=== PATIENT | male | born 1955 | race Caucasian/White ===

== ENCOUNTER 2023-10-10 11:55 | Outpatient (CLI) | payer MEDICARE, OTHER, SELFPAY ==
--- NOTE | 2023-10-10 12:59 | ECG_ITS ---
[facility] [address] Test Date: 2023-10-10 Pat Name: Eddi Gallego Department: Room: Gender: M [employer] Supervisor: : 1955 Requested By: Gabino Villatoro Order Number: [id number] Marianne MD: Maximo Ma M.D. Measurements Intervals [place] Rate: 81 P: 20 [place]: 141 QRS: -9 QRSD: 94 T: 26 QT: 352 QTc: 410 Interpretive Statements SINUS RHYTHM POSSIBLE RIGHT VENTRICULAR CONDUCTION DELAY [RSR (QR) IN V1/V2] No previous ECG available for comparison Electronically Signed On 10-10-2023 13:51:52 CDT by Maximo Ma M.D.
[2023-10-10 13:46] LABS: Basophils Absolute Auto 0.1 K/mm3 (0.0-0.1); Basophils Percent Auto 0.7 % (0.2-1.2); Eosinophils Absolute Auto 0.5 K/mm3 (0-0.3); Eosinophils Percent Auto 5.9 % (0-4.4); Hematocrit 40.1 % (42.0-52.0); Hemoglobin 12.9 g/dL (14.0-18.0); Immature Granulocyte Absolute 0.02 K/mm3 (0.00-0.031); Immature Granulocyte Percent A 0.2 % (0-0.5); Lymphocytes Percent Auto 17.8 % (18.3-44.2); Mean Corpuscular HGB Conc 32.2 g/dl (32-36); Mean Corpuscular Hemoglobin 28.7 pg (26-34); Mean Corpuscular Volume 89.3 fl (80-100); Mean Platelet Volume 9.6 fl (7.4-10.4); Monocytes Absolute Auto 0.7 K/mm3 (0.1-0.6); Monocytes Percent Auto 8.6 % (2.6-8.5); Neutrophils Absolute Auto 5.6 K/mm3 (1.3-6.7); Neutrophils Percent Auto 66.8 % (45.5-73.1); Platelet Count Result 263 k/mm3 (150-375); Red Blood Count 4.49 M/mm3 (4.6-6.20); Red Cell Distribution Width 13.3 % (11.5-14.5); White Blood Count 8.4 K/mm3 (4.5-10.0)
[2023-10-10 13:57] LABS: Albumin Level 4.2 g/dL (3.5-5.1); Estimated Glomerular Filt Rate > 60; Glucose 97 mg/dL (65-110)
[2023-10-11 01:31] LABS: Hemoglobin A1C 4.9 % (<5.7)
[2023-10-11 11:48] LABS: Urine Cotinine NEGATIVE
== END 2023-10-10 11:56 | disposition home or self-care (01) ==
LOC: ANHSURGERY 12:01
PROVIDERS: PCP Internal Medicine; Visit Provider Orthopaedic Surgery
DX: Z01.818 Encounter for other preprocedural examination (principal); M17.12 Unilateral primary osteoarthritis, left knee
CPT/HCPCS: 80307; 82040; 82565; 82947; 83036; 85025; 86850; 86900; 86901; 93005

== ENCOUNTER 2023-10-23 01:16 | Day surgery (SDC) | payer MEDICARE, OTHER, SELFPAY ==
[2023-10-10 12:07] VITALS: BMI 39.1
--- NOTE | 2023-10-10 12:34 | PC.NURSE ---
Report to the Outpatient Waiting Room, entrance under the green pavilion located off [facility], at time ___6:00AM____ on date _10/23/23 . Planned Procedure Time: _7:30 AM . Time changes happen often and if your time is changed the preop area will call you the afternoon before. - You and your visitor will be asked to self-screen and do not enter if you have any COVID symptoms. - A mask is optional within the hospital at this time. Patients may have clear liquids (water, carbonated beverages, clear teas, apple juice) until 3 hours prior to surgery( 4:30 AM) with a maximum of 20 ounces. - No food from midnight until time of surgery - Infants may have breast milk until 4 hours before surgery, infant formula 6 hours prior to surgery. - Children will be allowed to drink immediately following surgery. If applicable, please bring a bottle or sippy cup to assist with drinking. Juice, water, soda, and popsicles are readily available. For infants on formula, please bring formula the day of surgery. Pacifiers are allowed. Take the following medications with a SIP of water the morning of surgery: ____METOPROLOL,PAROXETINE DO NOT STOP ANY OF YOUR OTHER PRESCRIPTION MEDICATIONS PRIOR TO SURGERY ?EXCEPT THE FOLLOWING Medications to discontinue per physician __DO NOT STOP ASPIRIN [address] SALAMANCA_BUT DO NOT TAKE MORNING OF SURGERY. HOLD PLAVIX 5 DAYS PRE OP PER DR YANCEY .LAST DOSE 10/17/23 MAY TAKE TYLENOL IF NEEDED FOR PAIN. HOLD OZEMPIC 10 DAYS PRE OP PER ANESTHESIA. LAST DOSE 10/11/23 Please no make-up, nail czech, hairspray, perfume, deodorant, or body powder the day of surgery. No jewelry (including any body piercings) or valuables the day of surgery, leave them at home. Please take a shower or bath the night before, or the morning of, surgery with an antibacterial soap. Wear comfortable, loose fitting clothing. Children are encouraged to wear pajamas. - Jewelry must be removed prior to entering the operating room. Rings and piercings that are not removed may be cut off. - The hospital will not accept responsibility for valuables. - Please leave all valuables, including medications, at home the day of surgery. If you are going home after surgery, a licensed experienced truck driver must drive you home. - NO public transportation without another adult if you receive anesthesia. - We recommend that an adult stay with you for 24 hours following discharge. - We also recommend that you do not drive, make important decision, drink alcoholic beverages, or take any drugs that were not prescribed by your health care provider for at least 24 hours after your discharge time. Follow any additional instructions given to you from your surgeon. If you or anyone in your household have experienced Covid symptoms in the past week, please notify your surgeon or the nurse liaison at the phone number below for possible testing. VERBAL AND WRITTEN instructions given to _PATIENT and asked if any additional questions and then verbalized understanding. Patient advised to call surgeon office or pre surgery nurse liaison [phone] if any additional questions.
[2023-10-10 12:58] VITALS: BP 149/96; PULSE 80; RESP 18; TEMP 36.6; O2SAT 99
[2023-10-23] VITALS (16 sets, daily range): BP systolic 93–176; BP diastolic 49–99; PULSE 87–98; RESP 14–19; TEMP 36.1–36.9; O2SAT 92–100; BMI 38.5
--- NOTE | ~2023-10-23 | XR_ITS ---
[id number] Ordering provider: Gabino López MD History: . POST OP LEFT TOTAL KNEE . Comparison: None. FINDINGS: BONES: No acute fracture or dislocation. JOINT SPACES: Total knee arthroplasty. SOFT TISSUES: Areas seen laterally most likely postoperative. IMPRESSION: No acute osseous abnormality left knee. Total knee arthroplasty. Reviewed, dictated and finalized at location A.
--- NOTE | 2023-10-23 06:36 | WPDHPUPDATE1 ---
History and Physical Update Update Date/Time: 10/23/23 06:36 History and Physical has been reviewed, including an updated exam of the patient. There are NO changes in the patient's condition. Risks, benefits, and alternatives have been discussed and questions answered. Patient agrees to proceed with procedure.
[2023-10-23] MEDS: ACETAMINOPHEN 500 MG TABLET 1000 MG PO (06:53)
[2023-10-23] MEDS: VANCOMYCIN 1,500 MG/NS 500 ML BAG 250 MG IVPB (06:53)
[2023-10-23] MEDS: TRANEXAMIC ACID 1,000MG/ISO100 1,000 MG/100 ML BAG 200 MG IVPB (06:54)
[2023-10-23] MEDS: LACTATED RINGERS 1,000 ML 30 ML IV CONT ×2 (07:08→09:51)
--- NOTE | 2023-10-23 07:22 | WPDANESEPPF ---
Anes - Initial Pre Proc Eval Procedure: Operation Date: 10/23/23 07:30 Proposed Procedures p Left Total Knee Arthroplasty - Gabino López MD Date/Time: 10/23/23 07:22 Surgeon: Gabino López MD Pre Op Diagnosis: O A Lt Knee Patient Data Age: 67 Gender: M Height: 1.68 m Weight: 108.2 kg Last Vital Signs Temp 97.7 F 10/23/23 07:16 Pulse 89 10/23/23 07:16 Resp 14 10/23/23 07:16 BP 150/92 H 10/23/23 07:16 Pulse Ox 100 10/23/23 07:16 O2 Del Method Room Air 10/23/23 07:16 Allergies Allergy/AdvReac Type Severity Reaction Status Date / Time No Known Allergies Allergy Verified 10/23/23 06:09 Home Medications Medication Instructions Recorded Confirmed Type paroxetine HCl 40 mg tablet (Paxil) 40 mg PO DAILY 03/02/21 10/23/23 History tamsulosin 0.4 mg capsule 0.4 mg PO DAILY 03/02/21 10/10/23 History aspirin 81 mg capsule 81 mg PO DAILY 09/10/23 10/23/23 History clopidogrel 75 mg tablet 75 mg PO DAILY 09/10/23 10/23/23 History ezetimibe 10 mg tablet 10 mg PO DAILY 09/10/23 10/10/23 History lisinopril 40 mg tablet 40 mg PO DAILY 09/10/23 10/10/23 History metoprolol tartrate 50 mg tablet 50 mg PO BID 09/10/23 10/23/23 History acetaminophen 500 mg capsule 1,000 mg PO QID PRN Pain 10/10/23 10/10/23 History atorvastatin 40 mg tablet 40 mg PO HS 10/10/23 10/10/23 History cetirizine 10 mg tablet (Zyrtec) 10 mg PO DAILY 10/10/23 10/10/23 History fluticasone propionate 50 2 spray intranasal DAILY 10/10/23 10/23/23 History mcg/actuation nasal spray,suspension (Flonase Allergy Relief) semaglutide (weight loss) 2.4 2.4 mg subcut WEEKLY WEIGHT LOSS 10/10/23 10/23/23 History mg/0.75 mL subcutaneous pen injector Patient hx anesthesia problems: none Family hx anesthesia problems: none Results Review: All pre-operative results and documents have been reviewed as part of the pre-operative evaluation. [facility] Past Medical History Medical History Allergies Chronic seasonal allergic rhinitis Depression Hypertension Obstructive sleep apnea Osteoarthritis, knee Surgical History Surgical History History of angioplasty Family History Family History Father Diabetes mellitus Hypertension Cerebrovascular accident Mother Depression Heart disease Sibling Malignant neoplasm of prostate Testicular cancer Depression Sibling Depression Social History Social History Smoking packs per day: 2 Smoking cigarettes per day: 40.0 Years smoked: 30 Smoking pack-years: 60.00 Smoking status: Former smoker Tobacco type: cigarettes Smoking end date: 05/06/08 Additional smoking assessment comments: DENIES ANY FORM OF TOBACCO USE Alcohol intake: current Alcohol use details: ONE DRINK PER MONTH Substance use: never Do You Feel Safe in your Home?: Yes Lack of Transportation: No Lack of Food: Never True Current Housing: I Have Housing Concerned About Future Housing: No Difficulty Paying Gas/Electric Bills: No Difficulty Paying for Meds: No Currently Unemployed: No Education: Master's Degree or Higher Difficulty w/ Childcare or Family Care: No Living arrangements: with family Occupation/Education: retired Spiritual care concerns: No Anes - Eval Final PreProcedure Day of Procedure 10/23/23 07:22 Patient weight: obese Heart: regular rate and rhythm Lungs: clear to auscultation Airway: Mallampati scale and special considerations (Missing L lower tooth. ) Neurological: alert and oriented Last oral intake: >/= 8 hours ASA classification: III Emergent: no Anesthetic plan: proceed Anesthesia type and monitoring: general ETT and standard monitoring Results Review: All pre-operative res
[2023-10-23] MEDS: ceFAZolin 2 GM/D5W 50 ML 2 GM/50 ML BAG IVPB ×3 (07:23→23:00)
--- NOTE | 2023-10-23 07:24 | WPDANESPNB ---
Anes - Peripheral Nerve Block Date/Time: 10/23/23 07:24 I have discussed with the patient/family/POA the placement of a peripheral nerve block for post-operative pain management, including associated risks, benefits, complications, and side effects. Alternative methods of post-operative analgesia were detailed. Questions were solicited and answers provided to the satisfaction of the patient/family/POA. Time-Out: A pre-procedural Time-Out was completed immediately before starting the procedure and confirmed: Patient Identification, Site, Procedure, Patient Position and the Availability of Requisite Equipment. Clinical Indications: Acute post-operative pain management requested by the operative surgeon. Nerve Block Insertion Note Anes-nerve block: adductor canal left Patient position: supine Skin prep: chlorhexidine Needle: 22 gauge, stimulating, insulated echogenic needle. Needle length: 80 mm Technique: ultrasound Injectate: other (Bupiv 0.5%, 15 mls. ) Observations: tolerated well Complications: none Procedure start time:: Procedure end time::
[2023-10-23] MEDS: SODIUM CHLORIDE 0.9% IV 37.7 ML, MORPHINE SULFATE INJ (*CRX) 2 MG, ROPivacaine HCL 1% 2... INFILTRATE (08:07)
[2023-10-23] MEDS: TRANEXAMIC ACID 1,000 MG/10 ML AMPUL 1000 MG IV PUSH (09:18)
--- NOTE | 2023-10-23 09:19 | P.OP_ITS ---
Procedure Note - Detailed Date of Procedure 10/23/23 Pre-op Diagnosis Osteoarthritis LEFT Knee Post-op Diagnosis Same Procedure Performed LEFT TOTAL KNEE Surgeon Gabino López MD [employer] [facility] Anesthesia General Indications Pain and Arthritis Description of Procedure The patient was brought to operating room #7. A general anesthetic was administered. Placed on the operating table and sterilely prepped and draped in usual manner. A longitudinal incision was made. Tourniquet inflated to 300 mmHg for a total of 57 minutes. Dissection was carried down to the fascia. Medial parapatellar incision was made and the patella subluxated laterally. Patella cut from 25 to 15 mm and sized for a 34 mm button. The tibia was cut perpendicular to the long axis and femur cut in 5 degrees of valgus. 11mm of distal femur was removed because of the deformity. A 65 femur trialed. 71 tibia was felt to fit the best. The soft tissues balanced, hemostasis obtained. All [address], 71 tibia, 65 femur, 34 mm patella, and 10() mm poly. Motion was 0-125 degrees with good stability in both flexion and extension. The wound was closed with #2 Vicryl, 2-0 Vicryl and doug. Significant time was spent balancing the knee. [employer] Estimated Blood Loss 200 Drains No Packing No Pathology None sent Complications No immediate complications Condition Stable Disposition PACU [facility] Billing Surgery - Charge Forward: Surgery Billing ([id number] TOTAL KNEE)
[2023-10-23] MEDS: fentaNYL CITRATE INJ (*CRX) 100 MCG/2 ML VIAL 25 MCG IV PUSH (10:06)
--- NOTE | 2023-10-23 11:18 | ADMGEN ---
This patient, Eddi Gallego, was admitted to [facility] Surg Room 329-01. Patient/family oriented to hospital policies and general routines including ID bracelet, bed and alarms, visiting hours, pain management, procedures, bathroom and other care routines, personal items, smoking policy, room service/diet, and visiting hours. Information on how to activate the Rapid Response Team has been discussed. Patient/Family are encouraged to report perceived risks to care and to ask questions if they do not understand what they are told or what they should do.
[2023-10-23] MEDS: HYDROcodone/acetaminophen (*CRX) 5-325 MG TABLET 1 TAB PO ×2 (13:09→16:58)
--- NOTE | 2023-10-23 14:04 | PM.IMCN ---
Assessment and Plan Assessment and plan (1) Osteoarthritis of knees, bilateral: Qualifiers: Osteoarthritis type: primary Qualified Code(s): M17.0 - Bilateral primary osteoarthritis of knee Code(s): M17.0 - Bilateral primary osteoarthritis of knee Status: Acute Assessment and Plan: Patient underwent a left total knee arthroplasty on 10/23/23 with Rene JAY. - ambulate with assistance and up to chair - apply gel pads - use IS - neurovasc checks - see order for intervals - SCDs - resume diet - pain management - zofran PRN for nausea - monitor labs in AM - CBC and BMP - bowel regimen: docusate/senna, polyethylene glycol - maintenance fluids: NS 125 mL/hr x8 hrs - prophylactic abx - doxycycline 100 mg Q12H or Ancef - PT/OT eval and treatment (2) Hypertension: Qualifiers: Hypertension type: primary hypertension Qualified Code(s): I10 - Essential (primary) hypertension Code(s): I10 - Essential (primary) hypertension Status: Acute Assessment and Plan: - chronic, currently 129/88 - continue home medications:Lisinopril 40 mg, metoprolol 50 mg - monitor Plan Patient here for surgical management of his left knee osteoarthritis, underwent a total left knee arthroplasty on 10/22 with Rene JAY. Medications for patients HLD, depression, BPH, hypertension were resumed. Semaglutide and allergy medications held. Continue home CPAP. Diet: regular GI Prophylaxis: not currently indicated DVT Prophylaxis: Plavix continued, SCDs and TEDs Lines: peripheral Code Status: full code HPI Date of Consult Consult date: 10/24/23 Requesting Physician: Gabino López MD Primary Care Provider: Roland Ojeda, Consult Narrative Reason for consult: Medical Managment Narrative: 67 y/o M presented here for surgical management of his left knee arthritis with PMH of depression, HTN, osteoarthritis and NEVILLE. The patient presents here for surgical management of his left knee osteoarthritis that has been present for 10 years. Pain in his left knee worsened with activity and was partially relieved with rest. However the pain has begun to impact his ADLs including walking, working around the house, taking the stairs etc. Has tried conservative treatment prior. HAs received 2 cortisone shots, most recent was 5 years ago. Patient was not a candidate for a few years due to his weight, went on semaglutide for weight loss and was able to get to his goal weight. Patient elected to move forward with a total left knee arthroplasty, done today by Rene JAY. Currently reporting mild knee discomfort and a sore throat. Denying post-operatively nausea or vomiting. Preop workup: No leukocytosis, hemoglobin 12.9, creatinine 0.9 and GFR >60, A1C 4.9. Preop VS: 97.8? F, HR 80, RR 18, 149/96, and 99% on RA. Review of Systems Review of Systems: All systems reviewed & are unremarkable except as noted in HPI and below PMFSH Past Medical History Medical History Allergies Chronic seasonal allergic rhinitis Depression Hypertension Obstructive sleep apnea Osteoarthritis, knee Surgical History Surgical History History of angioplasty History of heart artery stent History of total knee arthroplasty (10/23/23) left Family History Family History Father Diabetes mellitus Hypertension Cerebrovascular accident Mother Depression Heart disease Sibling Malignant neoplasm of prostate Testicular cancer Depression Sibling Depression Social History Social History Smoking packs per day: 2 Smoking cigarettes per day: 40.0 Years smoked: 30 Smoking pack-years: 60.00 Smoking status: Former smoker Additional smoking assessment comments
[2023-10-23] MEDS: SENNA/DOCUSATE SODIUM TABLET 2 TAB PO (16:32)
[2023-10-23] MEDS: METOPROLOL TARTRATE 50 MG TAB PO (21:10)
[2023-10-23] MEDS: ATORVASTATIN 40 MG TABLET PO (21:10)
[2023-10-23] MEDS: HYDROcodone/acetaminophen (*CRX) 7.5-325 MG TABLET 1 TAB PO (21:10)
[2023-10-24] VITALS (8 sets, daily range): BP systolic 113–156; BP diastolic 62–88; PULSE 94–100; RESP 9–21; TEMP 36.7–37.5; O2SAT 95–100
[2023-10-24] MEDS: ceFAZolin 2 GM/D5W 50 ML 2 GM/50 ML BAG IVPB (06:10)
[2023-10-24] MEDS: HYDROcodone/acetaminophen (*CRX) 7.5-325 MG TABLET 1 TAB PO (06:19)
--- NOTE | 2023-10-24 06:37 | PM.PNORT ---
Progress Note: A&P Assessment and Plan (1) Osteoarthritis of knees, bilateral: Qualifiers: Osteoarthritis type: primary Qualified Code(s): M17.0 - Bilateral primary osteoarthritis of knee Code(s): M17.0 - Bilateral primary osteoarthritis of knee Status: Acute Assessment and Plan: Post op day 1 S/P Left TKA. Doing well. Will ambulate today. If doing well then home this afternoon. (2) History of knee replacement procedure of left knee: Code(s): Z96.652 - Presence of left artificial knee joint Status: Acute Subjective Subjective Date/Time Seen: 10/24/23 06:37 Post Op day: 1 Principal diagnosis: LEFT TOTAL KNEE for Osteoarthritis Review of Systems Musculoskeletal: Musculoskeletal: Reports arthralgias and Reports joint swelling Exam Narrative: Dressing intact. Wiggles toes Objective Data Vital Signs Vital Signs: Vital Signs - 24 hr 10/23/23 07:16 10/23/23 09:51 10/23/23 10:00 Temperature 97.7 F 97.1 F L Pulse Rate 89 94 96 Respiratory Rate 14 19 17 Blood Pressure 150/92 H 93/49 L 107/75 Pulse Oximetry 100 100 100 Oxygen Delivery Room Air Simple Face Mask Simple Face Mask Oxygen Flow Rate 8 8 10/23/23 10:15 10/23/23 10:20 10/23/23 10:30 Temperature 98.4 F Pulse Rate 95 96 96 Respiratory Rate 14 16 16 Blood Pressure 121/74 120/75 117/64 Pulse Oximetry 100 97 94 Oxygen Delivery Simple Face Mask Room Air Room Air Oxygen Flow Rate 8 10/23/23 10:45 10/23/23 10:55 10/23/23 11:05 Temperature Pulse Rate 94 96 95 Respiratory Rate 14 18 16 Blood Pressure 120/82 125/83 128/86 Pulse Oximetry 92 95 94 Oxygen Delivery Room Air Room Air Room Air Oxygen Flow Rate 10/23/23 11:28 10/23/23 11:43 10/23/23 12:14 Temperature 97.2 F L 96.9 F L 98.3 F Pulse Rate 95 93 98 Respiratory Rate 16 16 16 Blood Pressure 160/91 H 176/99 H 147/90 H Pulse Oximetry 99 95 97 Oxygen Delivery Oxygen Flow Rate 10/23/23 13:14 10/23/23 13:53 10/23/23 18:02 Temperature 97.9 F 97.4 F L Pulse Rate 94 92 Respiratory Rate 16 16 Blood Pressure 117/78 131/80 Pulse Oximetry 98 100 Oxygen Delivery Room Air Oxygen Flow Rate 10/23/23 20:53 10/23/23 20:00 10/23/23 22:50 Temperature 97.7 F Pulse Rate 87 88 Respiratory Rate 16 18 Blood Pressure 129/88 Pulse Oximetry 100 95 Oxygen Delivery Room Air CPAP Oxygen Flow Rate 10/24/23 00:48 10/24/23 02:14 10/24/23 05:47 Temperature 98.0 F Pulse Rate 95 Respiratory Rate 16 9 L 21 H Blood Pressure 120/83 Pulse Oximetry 97 95 97 Oxygen Delivery CPAP CPAP Oxygen Flow Rate 10/24/23 04:53 Temperature 98.5 F Pulse Rate 98 Respiratory Rate 18 Blood Pressure 141/75 H Pulse Oximetry 100 Oxygen Delivery Oxygen Flow Rate Intake/Output Intake/Output: Intake & Output 10/21/23 10/22/23 10/23/23 10/24/23 23:59 23:59 23:59 23:59 Intake Total 780 Output Total 775 425 Balance 5 -425 Meds/Results Medications: Active Medications Generic Name Dose Route Start Last Admin Trade Name Freq PRN Reason Stop Dose Admin Hydrocodone Bitart/Acetaminophen 1 tab 10/23/23 11:08 10/23/23 16:58 Hydrocodone/Acetaminophen (*Crx) 5-325 Mg Tablet PO 1 tab Q4H PRN Administration Pain Rated 4-6 Hydrocodone Bitart/Acetaminophen 1 tab 10/23/23 11:08 10/24/23 06:19 Hydrocodone/Acetaminophen (*Crx) 7.5-325 Mg Tablet PO 1 tab Q4H PRN Administration Pain Rated 7-10 Aspirin 81 mg 10/24/23 09:00 Aspirin 81 Mg Chewable Tablet PO DAILY ELA Atorvastatin Calcium 40 mg 10/23/23 21:00 10/23/23 21:10 Atorvastatin 40 Mg Tablet PO 40 mg HS ELA Administration Benzocaine 1 lozenge 10/23/23 21:51 Benzocaine/Menthol (*Bkc) 18 Ea Lozenge PO PRN PRN Sore Throat Clopidogrel Bisulfate 75 mg 10/24/23 09:00 Clopidogrel Bisulfate 75 Mg Tablet PO DAILY ELA Cyclobenzaprine HCl 10 mg 10/23/23 11:08 Cyclobenza
[2023-10-24 07:13] LABS: Basophils Absolute Auto 0.1 K/mm3 (0.0-0.1); Basophils Percent Auto 0.5 % (0.2-1.2); Eosinophils Percent Auto 0.1 % (0-4.4); Hematocrit 34.7 % (42.0-52.0); Hemoglobin 10.7 g/dL (14.0-18.0); Immature Granulocyte Absolute 0.08 K/mm3 (0.00-0.031); Immature Granulocyte Percent A 0.5 % (0-0.5); Lymphocytes Absolute Auto 1.82 K/mm3 (0.9-3.2); Lymphocytes Percent Auto 10.3 % (18.3-44.2); Mean Corpuscular HGB Conc 30.8 g/dl (32-36); Mean Corpuscular Volume 90.8 fl (80-100); Mean Platelet Volume 10.5 fl (7.4-10.4); Monocytes Absolute Auto 2.3 K/mm3 (0.1-0.6); Neutrophils Absolute Auto 13.4 K/mm3 (1.3-6.7); Neutrophils Percent Auto 75.6 % (45.5-73.1); Platelet Count Result 253 k/mm3 (150-375); Red Blood Count 3.82 M/mm3 (4.6-6.20); Red Cell Distribution Width 13.7 % (11.5-14.5); White Blood Count 17.7 K/mm3 (4.5-10.0)
[2023-10-24 07:31] LABS: Anion Gap 7 mmol/L (4-12); Blood Urea Nitrogen 17 mg/dL (9-20); Calcium 9.1 mg/dL (8.4-10.2); Carbon Dioxide 27 mmol/L (22-30); Chloride 105 mmol/L (98-107); Estimated CRCL calculation 71 ml/min; Estimated Glomerular Filt Rate > 60; Glucose 100 mg/dL (65-110); Potassium 3.7 mmol/L (3.4-5.0); Sodium 139 mmol/L (137-145)
--- NOTE | 2023-10-24 07:35 | PM.DS ---
DS: Admitting Diagnosis Discharge Date 10/24/2023 Admitting Diagnosis Osteoarthritis left knee DS: Discharge Diagnosis Discharge Diagnosis (1) History of knee replacement procedure of left knee: Code(s): Z96.652 - Presence of left artificial knee joint Status: Acute Assessment and Plan: Patient underwent total knee arthroplasty for osteoarthritis left knee. (2) Osteoarthritis of knees, bilateral: Qualifiers: Osteoarthritis type: primary Qualified Code(s): M17.0 - Bilateral primary osteoarthritis of knee Code(s): M17.0 - Bilateral primary osteoarthritis of knee Status: Acute DS: Summary Hospital Course Hospital Course: Patient underwent total knee arthroplasty left. He failed conservative treatment on his left knee. This is complicated by the fact that his large size as well as the significant deformity. He has done well postoperatively will dismissed home today pending therapy approval. Dismissed medication [employer] and doxycycline. Follow-up 2 weeks. Time Spent with Patient Time attestation: Total time spent providing and/or coordinating discharge services: Exam Narrative: Neurologically the patient is intact wiggles his toes and very little in the way of pain. DS: Data Data Completed and Pending Labs on day of discharge: Labs from last 24 hours 10/24/23 05:51 WBC 17.7 H RBC 3.82 L Hgb 10.7 L Hct 34.7 L MCV 90.8 MCH 28.0 MCHC 30.8 L RDW 13.7 Plt Count 253 MPV 10.5 H Immature Gran % (Auto) 0.5 Neut % (Auto) 75.6 H Lymph % (Auto) 10.3 L Page % (Auto) 13.0 H Eos % (Auto) 0.1 Baso % (Auto) 0.5 Lymph # (Auto) 1.82 Page # (Auto) 2.3 H Eos # (Auto) 0.0 Baso # (Auto) 0.1 Abs Immat Gran (auto) 0.08 H Absolute Neuts (auto) 13.4 H Absolute Nucleated RBC 0.000 Nucleated RBC % 0.0 Sodium 139 Potassium 3.7 Chloride 105 Carbon Dioxide 27 Anion Gap 7 BUN 17 Creatinine 1.00 Estim Creat Clear Calc 71 Estimated GFR > 60 Glucose 100 Calcium 9.1 Discharge Plan Discharge Patient Disposition: Home, Self-Care Discharge Instructions: Dr. Gabino López M.D [address] [address] POST-OPERATIVE DISCHARGE INSTRUCTIONS TOTAL KNEE ARTHROPLASTY 1. When resting, do not rest in the chair.When resting, lie on your back, with back flat on the couch or bed, with leg elevated above heart to minimize swelling. You may put a pillow under your head. . Significant swelling could indicate a blood clot and if this occurs call the office (or go to the ER) to have a venous ultrasound. Therefore, do not rest in a chair. 2. At least five times a day spend several minutes stretching your knee into flexion while sitting in the chair and also stretching your knee out straight The abilities to bend your knee fulling and straighten your knee fully are two most important knee functions to focus on during your recovery. 3. It is ok to sit in chair to eat, use the toilet and receive a guest and to do your stretching exercises, but, sitting in a chair will cause your leg to swell. Therefore, avoid additional time sitting in the chair. and don't rest in the chair. 4. Wound Care: Nursing will give you an additional Mepilex dressing at the time of discharge. Patient to remove the dressing and apply a new Mepilex dressing at home 7 days after surgery and leave the dressing on until seen in office. 5. May shower with a Mepilex dressing in place.The water will run off the dressing. 6. Unless you are told otherwise, you may put full weight on your operated leg. Use a walker for balance and practice walking as normally as you can, ideally for a few minutes every hour while you are awake. 7. I would advise against putting ice packs on your knee incision. Ice constricts blood flow which can impar healing of the knee incision. IMPORTANT: Remember not to sit in the chair for more than 30 minutes at a time.
--- NOTE | 2023-10-24 08:16 | PM.IMPN ---
Progress Note: A&P Assessment and Plan (1) Osteoarthritis of knees, bilateral: Qualifiers: Osteoarthritis type: primary Qualified Code(s): M17.0 - Bilateral primary osteoarthritis of knee Code(s): M17.0 - Bilateral primary osteoarthritis of knee Status: Acute Assessment and Plan: Patient underwent a left total knee arthroplasty on 10/23/23 with [facility]. - ambulate with assistance and up to chair - apply gel pads - use IS - neurovasc checks - see order for intervals - SCDs - resume diet - pain management - zofran PRN for nausea - monitor labs in AM - CBC and BMP - bowel regimen: docusate/senna, polyethylene glycol - maintenance fluids: NS 125 mL/hr x8 hrs - prophylactic abx - doxycycline 100 mg Q12H or Ancef - PT/OT eval and treatment - Give one dose of toradol (2) Hypertension: Qualifiers: Hypertension type: primary hypertension Qualified Code(s): I10 - Essential (primary) hypertension Code(s): I10 - Essential (primary) hypertension Status: Acute Assessment and Plan: - chronic, currently 156/88 - continue home medications:Lisinopril 40 mg, metoprolol 50 mg - monitor (3) Sinusitis: Code(s): J32.9 - Chronic sinusitis, unspecified Status: Acute Assessment and Plan: Continue follow up One dose of Claritin D Plan Patient is stable for discharge from hospitalist perspective. Labs and vital signs are stable Time Spent With Patient Time: 41 minutes Time with patient: Greater than 35 minutes Subjective Date/time seen: 10/24/23 1030 Interval history: 10/24/23 67 y/o M presented here for surgical management of his left knee arthritis with PMH of depression, HTN, osteoarthritis and NEVILLE. The patient presents here for surgical management of his left knee osteoarthritis that has been present for 10 years. Pain in his left knee worsened with activity and was partially relieved with rest. However the pain has begun to impact his ADLs including walking, working around the house, taking the stairs etc. Has tried conservative treatment prior. HAs received 2 cortisone shots, most recent was 5 years ago. Patient was not a candidate for a few years due to his weight, went on semaglutide for weight loss and was able to get to his goal weight. Patient elected to move forward with a total left knee arthroplasty, done today by Rene JAY. Currently reporting mild knee discomfort and a sore throat. Denying post-operatively nausea or vomiting. Preop workup: No leukocytosis, hemoglobin 12.9, creatinine 0.9 and GFR >60, A1C 4.9. Preop VS: 97.8? F, HR 80, RR 18, 149/96, and 99% on RA. 10/24/2023 Patient is laying in bed. He denies any chest pain, shortness of breath, nausea, vomiting diarrhea. He is stating that he is still having some substantial pain. He is also complaining of congestion. He did state that he was having some issues with walking. Currently he is stable and can be discharged any time ortho is ready. Review of Systems Review of Systems: All systems reviewed & are unremarkable except as noted in HPI and below Exam Narrative: General: well-nourished, well-appearing 67-year-old male, sitting up in bed, comfortable, NARD Neuro: awake, alert and oriented x4, speech clear, no focal neuro deficits noted HEENMT: normocephalic, atraumatic, EOMI, sclerae anicteric, moist oral mucosa Respiratory: Clear to auscultation bilaterally without crackles, rhonchi or wheezes, nonlabored breathing Cardio: regular rate, regular rhythm with S1-S2 Abdomen: nondistended, normoactive bowel sounds, soft, nontender to palpation Extremities: no edema, erythema, or tenderness to palpation, DP pulses 2+ bilaterally, Left knee with dressing that is clean dry and intact Skin: no rashes or lesions, warm and dry Psych: appropriate mood and affect, judgment and insight intact Objective Data Vital Signs Vital Signs: Vital Signs
[2023-10-24] MEDS: CLOPIDOGREL BISULFATE 75 MG TABLET PO (08:29)
[2023-10-24] MEDS: PARoxetine 20 MG TABLET 40 MG PO (08:29)
[2023-10-24] MEDS: polyethylene glycoL 3350 17 GM POWD.PACK PO (08:29)
[2023-10-24] MEDS: TAMSULOSIN HCL 0.4 MG CAPSULE PO (08:30)
[2023-10-24] MEDS: SENNA/DOCUSATE SODIUM TABLET 2 TAB PO (08:30)
[2023-10-24] MEDS: ASPIRIN 81 MG CHEWABLE TABLET PO (08:30)
[2023-10-24] MEDS: lisinopriL 20 MG TABLET 40 MG PO (08:30)
[2023-10-24] MEDS: METOPROLOL TARTRATE 50 MG TAB PO (08:30)
[2023-10-24] MEDS: EZETIMIBE 10 MG TABLET PO (08:30)
[2023-10-24] MEDS: HYDROcodone/acetaminophen (*CRX) 5-325 MG TABLET 1 TAB PO (10:47)
[2023-10-24] MEDS: LORATADINE/PSEUDOEPHEDRINE (*CRX) 10/240 MG TABLET ER 24 HR 1 TAB PO (10:49)
[2023-10-24] MEDS: KETOROLAC 15 MG/ML VIAL (*BKC) IV PUSH (10:49)
--- NOTE | 2023-10-24 12:41 | WPDANESPN ---
Anes - Prog Note Post-Op Date/Time: 10/24/23 12:41 Cardiovascular status: normal Respiratory status: normal Airway patency: baseline Mental status: baseline Post-Op hydration status: normal Vital Signs: Last Vital Signs Temp 37.5 C 10/24/23 08:00 Pulse 94 10/24/23 08:30 Resp 18 10/24/23 08:00 BP 118/62 10/24/23 08:29 Pulse Ox 98 10/24/23 08:00 O2 Del Method Room Air 10/24/23 08:00 O2 Flow Rate 8 10/23/23 10:15 Pain Score (VAS): 08/13 I/O: Intake & Output 10/23/23 10/24/23 10/24/23 23:59 07:59 15:59 Intake Total 340 Output Total 375 425 Balance -35 -425 Laboratory Tests 10/24/23 05:51 10/24/23 05:51 10/24/23 05:51 WBC 17.7 H RBC 3.82 L Hgb 10.7 L Hct 34.7 L MCV 90.8 MCH 28.0 MCHC 30.8 L RDW 13.7 Plt Count 253 MPV 10.5 H Immature Gran % (Auto) 0.5 Neut % (Auto) 75.6 H Lymph % (Auto) 10.3 L [place] % (Auto) 13.0 H Eos % (Auto) 0.1 Baso % (Auto) 0.5 Lymph # (Auto) 1.82 [place] # (Auto) 2.3 H Eos # (Auto) 0.0 Baso # (Auto) 0.1 Abs Immat Gran (auto) 0.08 H Absolute Neuts (auto) 13.4 H Absolute Nucleated RBC 0.000 Nucleated RBC % 0.0 Sodium 139 Potassium 3.7 Chloride 105 Carbon Dioxide 27 Anion Gap 7 BUN 17 Creatinine 1.00 Estim Creat Clear Calc 71 Estimated GFR > 60 Glucose 100 Calcium 9.1 Post-procedural complaints: none Patient Feedback: Patient satisfied with anesthetic care.
--- NOTE | 2023-11-04 10:58 | PM.IMHP ---
H&P: HPI History of Present Illness Date/Time: 11/04/23 10:58 Chief Complaint: Patient presents knee pain LEFT. He has bjdn-ej-oagn arthritis and has failed conservative treatment like to consider knee replacement surgery. Review of Systems Musculoskeletal: Musculoskeletal: Reports arthralgias and Reports joint swelling PMF Past Medical History Medical History Allergies Chronic seasonal allergic rhinitis Depression Hypertension Obstructive sleep apnea Osteoarthritis, knee Surgical History Surgical History History of angioplasty History of heart artery stent History of total knee arthroplasty (10/23/23) left Family History Family History Father Diabetes mellitus Hypertension Cerebrovascular accident Mother Depression Heart disease Sibling Malignant neoplasm of prostate Testicular cancer Depression Sibling Depression Social History Social History Smoking packs per day: 2 Smoking cigarettes per day: 40.0 Years smoked: 30 Smoking pack-years: 60.00 Smoking status: Former smoker Additional smoking assessment comments: DENIES ANY FORM OF TOBACCO USE Alcohol intake: never Alcohol use details: ONE DRINK PER MONTH Substance use: never Substance use type: does not use Do You Feel Safe in your Home?: Yes Lack of Transportation: No Lack of Food: Never True Current Housing: I Have Housing Concerned About Future Housing: No Difficulty Paying Gas/Electric Bills: No Difficulty Paying for Meds: No Currently Unemployed: No Education: Master's Degree or Higher Difficulty w/ Childcare or Family Care: No Living arrangements: with family Occupation/Education: retired Spiritual care concerns: No Meds Home Medications and Allergies Home Medications Medication Instructions Recorded Confirmed Type paroxetine HCl 40 mg tablet (Paxil) 40 mg PO DAILY 03/02/21 10/23/23 History tamsulosin 0.4 mg capsule 0.4 mg PO DAILY 03/02/21 10/10/23 History aspirin 81 mg capsule 81 mg PO DAILY 09/10/23 10/23/23 History clopidogrel 75 mg tablet 75 mg PO DAILY 09/10/23 10/23/23 History ezetimibe 10 mg tablet 10 mg PO DAILY 09/10/23 10/10/23 History lisinopril 40 mg tablet 40 mg PO DAILY 09/10/23 10/10/23 History metoprolol tartrate 50 mg tablet 50 mg PO BID 09/10/23 10/23/23 History acetaminophen 500 mg capsule 1,000 mg PO QID PRN Pain 10/10/23 10/10/23 History atorvastatin 40 mg tablet 40 mg PO HS 10/10/23 10/10/23 History cetirizine 10 mg tablet (Zyrtec) 10 mg PO DAILY 10/10/23 10/10/23 History fluticasone propionate 50 2 spray intranasal DAILY 10/10/23 10/23/23 History mcg/actuation nasal spray,suspension (Flonase Allergy Relief) semaglutide (weight loss) 2.4 2.4 mg subcut WEEKLY WEIGHT LOSS 10/10/23 10/23/23 History mg/0.75 mL subcutaneous pen injector doxycycline hyclate 100 mg tablet 100 mg PO DAILY #10 tabs 10/24/23 Rx hydrocodone 7.5 mg-acetaminophen 1 tablet PO Q4H PRN pain #40 tabs 10/24/23 Rx 325 mg tablet Allergies Allergy/AdvReac Type Severity Reaction Status Date / Time No Known Allergies Allergy Verified 10/23/23 06:09 Exam Narrative: Patient has motion his knee from 3 to 110?. Varus deformity grinding crepitus and pain. Neurologically he is intact. He walks with an antalgic gait. Eyes: General: appearance normal, both eyes and all related structures Neck: Neck: supple Resp: Effort & Inspection: normal respiratory effort Cardio: Rate: regular rate Rhythm: regular rhythm Radiology Reports: Comments: [facility] [address] [place] [address] [address] [place] [address] Gabino López M.D. Orthopedics XRay Report Ambulatory Signed Patient: Eddi Gallego
== END 2023-10-24 15:20 | disposition home or self-care (01) ==
LOC: ANHSURGERY 05:42 → ANH3MEDSUR 11:09
PROVIDERS: PCP Internal Medicine; Visit Provider Orthopaedic Surgery
PROC: (CPT 27447; principal; 2023-10-23 07:30)
DX: M17.12 Unilateral primary osteoarthritis, left knee (principal); G89.18 Other acute postprocedural pain; I10 Essential (primary) hypertension; J32.9 Chronic sinusitis, unspecified; G47.33 Obstructive sleep apnea (adult) (pediatric); E78.5 Hyperlipidemia, unspecified; N40.0 Benign prostatic hyperplasia without lower urinary tract symptoms; F32.A Depression, unspecified; Z87.891 Personal history of nicotine dependence; E66.9 Obesity, unspecified; Z68.38 Body mass index [BMI] 38.0-38.9, adult; Z79.82 Long term (current) use of aspirin; Z79.02 Long term (current) use of antithrombotics/antiplatelets; Z79.85 Long-term (current) use of injectable non-insulin antidiabetic drugs
CPT/HCPCS: 27447; 64447; 36415; 73560; 80048; 85025; 97110; 97116; 97161; 97165; 97530; 97535; A9270; C1713; C1776; J0171; J0330; J0690; J1100; J1170; J1885; J2250; J2270; J2405; J2704; J2795; J3010; J3370; J7120

== ENCOUNTER 2023-12-30 01:12 | Day surgery (SDC) | payer MEDICARE, OTHER, SELFPAY ==
[2023-12-24 10:45] VITALS: BMI 38.4
--- NOTE | 2023-12-24 11:03 | PC.NURSE ---
Report to the Outpatient Waiting Room, entrance under the green pavilion located off [facility], at 0600 on 12/30/23. Planned Procedure Time: 0730. Time changes happen often and if your time is changed the preop area will call you the afternoon before. - You and your visitor will be asked to self-screen and do not enter if you have any COVID symptoms. - A mask is optional within the hospital at this time. Patients may have clear liquids (water, carbonated beverages, clear teas, apple juice) until 3 hours prior to surgery with a maximum of 20 ounces. - No food from midnight until time of surgery Take the following medications with a SIP of water the morning of surgery: ASA (per conveyor attendant), Metoprolol, Tamsulosin. Paroxetine DO NOT STOP ANY OF YOUR OTHER PRESCRIPTION MEDICATIONS PRIOR TO SURGERY ?EXCEPT THE FOLLOWING Medications to discontinue per physician Clopidogrel 5 days prior per conveyor attendant, Semaglutide-last dose 12/20/23 Date to take last dose Please no make-up, nail tajik, hairspray, perfume, deodorant, or body powder the day of surgery. No jewelry (including any body piercings) or valuables the day of surgery, leave them at home. Please take a shower or bath the night before, or the morning of, surgery with an antibacterial soap. Wear comfortable, loose fitting clothing. - Jewelry must be removed prior to entering the operating room. Rings and piercings that are not removed may be cut off. - The hospital will not accept responsibility for valuables. - Please leave all valuables, including medications, at home the day of surgery. If you are going home after surgery, a licensed courier driver must drive you home. - NO public transportation without another adult if you receive anesthesia. - We recommend that an adult stay with you for 24 hours following discharge. - We also recommend that you do not drive, make important decision, drink alcoholic beverages, or take any drugs that were not prescribed by your health care provider for at least 24 hours after your discharge time. Follow any additional instructions given to you from your surgeon. If you or anyone in your household have experienced Covid symptoms in the past week, please notify your surgeon or the nurse liaison at the phone number below for possible testing. Telephone instructions given to patient and asked if any additional questions and then verbalized understanding. Patient advised to call surgeon office or pre surgery nurse liaison [phone] if any additional questions.
[2023-12-30] VITALS (10 sets, daily range): BP systolic 128–156; BP diastolic 79–94; PULSE 84–92; RESP 12–18; TEMP 36.3; O2SAT 97–100
[2023-12-30] MEDS: ACETAMINOPHEN 500 MG TABLET 1000 MG PO (06:28)
--- NOTE | 2023-12-30 07:05 | WPDANESEPPF ---
Anes - Initial Pre Proc Eval Procedure: Operation Date: 12/30/23 07:30 Proposed Procedures p Fusion Guided Bilateral Frontal Sinusotomy, Bilateral Ethmoidectomy, Bilateral Sphenoidotomy, Bilateral Maxillary Antrostomy, Bilateral Turbinate Reduction, - Mark Luu MD Date/Time: 12/30/23 07:05 Surgeon: Mark Luu MD Pre Op Diagnosis: chronic sinusitis,deviated septum Patient Data Age: 68 Gender: M Height: 1.68 m Weight: 109.6 kg Last Vital Signs Temp 97.3 F L 12/30/23 06:32 Pulse 88 12/30/23 06:32 Resp 16 12/30/23 06:32 BP 128/81 12/30/23 06:32 Pulse Ox 100 12/30/23 06:32 O2 Del Method Room Air 12/30/23 06:32 Allergies Allergy/AdvReac Type Severity Reaction Status Date / Time No Known Allergies Allergy Verified 12/30/23 06:24 Home Medications Medication Instructions Recorded Confirmed Type paroxetine HCl 40 mg tablet (Paxil) 40 mg PO DAILY 03/02/21 12/30/23 History tamsulosin 0.4 mg capsule 0.4 mg PO DAILY 03/02/21 12/30/23 History aspirin 81 mg capsule 81 mg PO DAILY 09/10/23 12/30/23 History clopidogrel 75 mg tablet 75 mg PO DAILY 09/10/23 12/30/23 History ezetimibe 10 mg tablet 10 mg PO DAILY 09/10/23 12/30/23 History lisinopril 40 mg tablet 40 mg PO DAILY 09/10/23 12/30/23 History metoprolol tartrate 50 mg tablet 50 mg PO BID 09/10/23 12/30/23 History acetaminophen 500 mg capsule 1,000 mg PO QID PRN Pain 10/10/23 12/30/23 History atorvastatin 40 mg tablet 40 mg PO HS 10/10/23 12/30/23 History cetirizine 10 mg tablet (Zyrtec) 10 mg PO DAILY 10/10/23 12/30/23 History fluticasone propionate 50 2 spray intranasal DAILY PRN Nasal 10/10/23 12/30/23 History mcg/actuation nasal Congestion spray,suspension (Flonase Allergy Relief) semaglutide (weight loss) 2.4 2.4 mg subcut WEEKLY WEIGHT LOSS 10/10/23 12/24/23 History mg/0.75 mL subcutaneous pen injector amoxicillin 875 mg-potassium 1 tablet PO BID 12/24/23 12/30/23 History clavulanate 125 mg tablet Patient hx anesthesia problems: none Family hx anesthesia problems: none Results Review: All pre-operative results and documents have been reviewed as part of the pre-operative evaluation. FOR[facility]LY [facility] Past Medical History Medical History Allergies Chronic seasonal allergic rhinitis Depression Hypertension Obstructive sleep apnea Osteoarthritis, knee Surgical History Surgical History History of angioplasty History of heart artery stent History of total knee arthroplasty (10/23/23) left Family History Family History (Updated 12/03/23 @ 13:43 by JAVIER Song) Father Diabetes mellitus Hypertension Cerebrovascular accident Mother Depression Heart disease Sibling Malignant neoplasm of prostate Testicular cancer Depression Diabetes mellitus Sibling Depression Social History Social History (Updated 12/03/23 @ 13:44 by JAVIER Song) Smoking packs per day: 2 Smoking cigarettes per day: 40.0 Years smoked: 30 Smoking pack-years: 60.00 Smoking status: Former smoker Second hand tobacco smoke exposure: No Additional smoking assessment comments: DENIES ANY FORM OF TOBACCO USE Alcohol intake: current Alcohol use details: ONE DRINK PER MONTH Substance use: never Substance use type: does not use Last use: 12/23/08 Do You Feel Safe in your Home?: Yes Lack of Transportation: No Lack of Food: Never True Current Housing: I Have Housing Concerned About Future Housing: No Difficulty Paying Gas/Electric Bills: No Difficulty Paying for Meds: No Currently Unemployed: No Education: Master's Degree or Higher Difficulty w/ Childcare or Family Care: No Living arrangements: with family 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
[2023-12-30] MEDS: LACTATED RINGERS 1,000 ML 30 ML IV CONT ×2 (07:10→09:07)
--- NOTE | 2023-12-30 07:13 | PM.IMHP ---
H&P: HPI History of Present Illness Date/Time: 12/30/23 07:13 Chief Complaint: nasal polyps Narrative: chronic sinusitis, nasal polyposis Review of Systems Review of Systems: All systems reviewed & are unremarkable except as noted in HPI and below PMFSH Past Medical History Medical History Allergies Chronic seasonal allergic rhinitis Depression Hypertension Obstructive sleep apnea Osteoarthritis, knee Surgical History Surgical History History of angioplasty History of heart artery stent History of total knee arthroplasty (10/23/23) left Family History Family History Father Diabetes mellitus Hypertension Cerebrovascular accident Mother Depression Heart disease Sibling Malignant neoplasm of prostate Testicular cancer Depression Diabetes mellitus Sibling Depression Social History Social History Smoking packs per day: 2 Smoking cigarettes per day: 40.0 Years smoked: 30 Smoking pack-years: 60.00 Smoking status: Former smoker Second hand tobacco smoke exposure: No Additional smoking assessment comments: DENIES ANY FORM OF TOBACCO USE Alcohol intake: current Alcohol use details: ONE DRINK PER MONTH Substance use: never Substance use type: does not use Last use: 12/23/08 Do You Feel Safe in your Home?: Yes Lack of Transportation: No Lack of Food: Never True Current Housing: I Have Housing Concerned About Future Housing: No Difficulty Paying Gas/Electric Bills: No Difficulty Paying for Meds: No Currently Unemployed: No Education: Master's Degree or Higher Difficulty w/ Childcare or Family Care: No Living arrangements: with family 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e patient): Male Spiritual care concerns: No Meds Home Medications and Allergies Home Medications Medication Instructions Recorded Confirmed Type paroxetine HCl 40 mg tablet (Paxil) 40 mg PO DAILY 03/02/21 12/30/23 History tamsulosin 0.4 mg capsule 0.4 mg PO DAILY 03/02/21 12/30/23 History aspirin 81 mg capsule 81 mg PO DAILY 09/10/23 12/30/23 History clopidogrel 75 mg tablet 75 mg PO DAILY 09/10/23 12/30/23 History ezetimibe 10 mg tablet 10 mg PO DAILY 09/10/23 12/30/23 History lisinopril 40 mg tablet 40 mg PO DAILY 09/10/23 12/30/23 History metoprolol tartrate 50 mg tablet 50 mg PO BID 09/10/23 12/30/23 History acetaminophen 500 mg capsule 1,000 mg PO QID PRN Pain 10/10/23 12/30/23 History atorvastatin 40 mg tablet 40 mg PO HS 10/10/23 12/30/23 History cetirizine 10 mg tablet (Zyrtec) 10 mg PO DAILY 10/10/23 12/30/23 History fluticasone propionate 50 2 spray intranasal DAILY PRN Nasal 10/10/23 12/30/23 History mcg/actuation nasal Congestion spray,suspension (Flonase Allergy Relief) semaglutide (weight loss) 2.4 2.4 mg subcut WEEKLY WEIGHT LOSS 10/10/23 12/24/23 History mg/0.75 mL subcutaneous pen injector amoxicillin 875 mg-potassium 1 tablet PO BID 12/24/23 12/30/23 History clavulanate 125 mg tablet Allergies Allergy/AdvReac Type Severity Reaction Status Date / Time No Known Allergies Allergy Verified 12/30/23 06:24 Vital Signs Vital Signs - 24 hr 12/30/23 06:32 Temperature 36.3 C L Pulse Rate 88 Respiratory Rate 16 Blood Pressure 128/81 Pulse Oximetry 100 Oxygen Delivery Room Air Exam Narrative: nasal polyposis bilaterally, fully occluded Assessment and Plan Assessment and plan (1) Sinusitis: Code(s): J32.9 - Chronic sinusitis, unspecified Status: Acute Plan Eddi has bilateral nasal polyposis and chronic sinusitis, here for endoscopic sinus surgery, removal of left ethmoid osteo
--- NOTE | 2023-12-30 07:15 | WPDHPUPDATE1 ---
History and Physical Update Update Date/Time: 12/30/23 07:15 History and Physical has been reviewed, including an updated exam of the patient. There are NO changes in the patient's condition. Risks, benefits, and alternatives have been discussed and questions answered. Patient agrees to proceed with procedure.
[2023-12-30] MEDS: OXYMETAZOLINE HCL 0.05% NAS 15 ML BTL (*BKC) 1 SPRAY NASAL (07:24)
[2023-12-30] MEDS: ceFAZolin 2 GM/D5W 50 ML 2 GM/50 ML BAG IVPB (07:28)
[2023-12-30] MEDS: LIDO 1%/EPINEPHRINE 1:100,000 50 ML VIAL 10 ML INFILTRATE (07:53)
[2023-12-30] MEDS: MUPIROCIN 2% OINT 22 GM TUBE 1 APPLIC EACH NARE (08:24)
--- NOTE | 2023-12-30 08:38 | W.PM.PROC2 ---
Procedure Note - Detailed Date of Procedure 12/30/23 Pre-op Diagnosis chronic sinusitis,nasal polyposis, left ethmoid osteoma Post-op Diagnosis Same Procedure Performed Image guided bilateral frontal sinusotomy, total ethmoidectomy, sphenoidotomy with tissue removal, maxillary antrostomy with tissue removal, turbinoplasty. Removal of left ethmoid osteoma. Surgeon Mark Luu MD Anesthesia General Indications Nasal polyposis, osteoma Findings Bilateral nasal polyposis originating from sphenoid and septum. Smaller polyp disease in ethmoid sinuses. Left frontal osteoma. Bilateral nasopore placed. Description of Procedure On the date of procedure the patient was met in the preoperative area and risk and benefits of the procedure reviewed with the patient as documented in the H&P and they elected to proceed with surgery. Patient was brought back to the operating room by the anesthesia team and underwent general endotracheal anesthesia. Once an adequate plane of anesthesia was obtained a timeout was performed to assure the patient identification the patient here to be performed were correct. They were.The patient was then prepped and draped in the normal fashion for endoscopic sinus surgery. The diffusion image guidance system was calibrated and used for the entire case. Afrin-soaked pledgets were placed in the nasal cavities bilaterally. The entire case was performed under endoscopic visualization. Nasal endoscopy was performed at the beginning of the case. 1% lidocaine with 1:100,000 epinephrine was then injected into the root of the middle turbinate and lateral nasal wall. Attention was first directed towards the right side. The middle turbinate was medialized and the osteomeatal complex was identified with a rani probe. Using a 90 degree backbiter, the uncinate process was reflected anteriorly and removed using a combination of sharp and powered dissection. The maxillary antrostomy was then created and widened by identifying the natural ostia and opening the sinus with straight leila-cut forceps, backbiter, and microdebrider. Polyp tissue encountered was removed with microdebrider. Continuing with the microdebrider, the anterior ethmoid bulla was opened. Careful dissection was carried out posteriorly, through the basal lamella and posterior ethmoid cells until the sphenoid rostrum was identified. A Cassandra suction bluntly identified the sphenoid os and the opening was widened with microdebrider and mushroom punch to 5mm. Polyp disease was removed from the sphenoid. Using an image guided curved suction as well as J-curette, the posterior most ethmoid cell was identified and the ethmoids were bluntly fractured and dissected from posterior to anterior along the base of the skull. The remaining bone fragments were removed with appropriate curved instruments and microdebrider. Next, The left maxillary antrostomy, ethmoidectomy and sphenoidotomy were carried out in identical fashion with findings of gross polyp disease throughout. There was an osteoma in the left ethmoid sinus that was carefully removed using alena elevator, frontal curettes. Upon completion of these portions of the procedure, attention was returned to the right side the frontal recess was identified, with gross polyp disease obstructing and removed. Image guided seeker confirmed proper identification of the frontal recess. This was repeated on the left side. With all sinuses opened and no remaining polyp disease appreciated, nasopore packing was placed in the ethmoid acvities bilaterally. Hemostasis was ensured. Lastly, the bilateral inferior turbiantes were reduced submucosally using 2mm microdebrider and then outfractured with a sayer elevator. This significantly opened the airway. At this point, the procedure was concluded. Care the patient was transferred back to the anesthesia team and the patient was awoke in the operating room and transferred back to the PACU in [facility]
--- NOTE | 2023-12-30 09:16 | SUR.PHASEI ---
0915: Face tent removed.
[2023-12-30] MEDS: oxyCODONE HCL (*CRX) 5 MG TAB IR PO (10:14)
--- NOTE | 2023-12-30 10:26 | SUR.PHASEII ---
Patient has soaked 2 2x2s and [address] Luu at bedside to assess patient and bleeding. Per Dr Luu bleeding is ok and ok to proceed with d/c.
--- NOTE | 2023-12-30 11:00 | SUR.PHASEII ---
Dr Daniel notified again in passing about patient having large amounts of bleeding from both nares and dressing having to be changed frequently. Per Dr Daniel he is aware and expects more bleeding from this patient due to the nature of the procedure, ok to proceed with d/c.
== END 2023-12-30 11:09 | disposition home or self-care (01) ==
PROVIDERS: PCP Internal Medicine; Visit Provider Otolaryngology
PROC: (CPT 31276; principal; 2023-12-30 07:30)
DX: J33.8 Other polyp of sinus (principal); D16.4 Benign neoplasm of bones of skull and face; J32.9 Chronic sinusitis, unspecified; I10 Essential (primary) hypertension; F32.A Depression, unspecified; G47.33 Obstructive sleep apnea (adult) (pediatric); E66.01 Morbid (severe) obesity due to excess calories; Z68.39 Body mass index [BMI] 39.0-39.9, adult; Z79.82 Long term (current) use of aspirin; Z79.02 Long term (current) use of antithrombotics/antiplatelets; Z79.85 Long-term (current) use of injectable non-insulin antidiabetic drugs; Z98.890 Other specified postprocedural states; Z95.5 Presence of coronary angioplasty implant and graft; Z87.891 Personal history of nicotine dependence; Z80.42 Family history of malignant neoplasm of prostate; Z80.43 Family history of malignant neoplasm of testis; Z82.49 Family history of ischemic heart disease and other diseases of the circulatory system
CPT/HCPCS: 31276; 31259; 31267; 30140; 61782; 88305; 88307; A9270; J0690; J1100; J2405; J2704; J3010; J7030; J7120

== ENCOUNTER 2023-12-30 18:54 | Emergency (ER) | payer MEDICARE, OTHER, SELFPAY ==
[2023-12-30 19:07] VITALS: BP 132/83; PULSE 112; RESP 16; TEMP 36.6; O2SAT 100
--- NOTE | 2023-12-30 19:39 | PC.NURSE ---
pt and to intake desk. we are not waiting, we will call his
== END 2023-12-30 20:39 | disposition left against medical advice (07) ==
LOC: ANHED 19:56
PROVIDERS: PCP Internal Medicine
DX: J95.830 Postprocedural hemorrhage of a respiratory system organ or structure following a respiratory system procedure (principal)
CPT/HCPCS: 99199

== ENCOUNTER 2023-12-30 21:25 | Emergency (ER) | payer MEDICARE, OTHER, SELFPAY ==
[2023-12-30 21:53] VITALS: BP 119/80; PULSE 89; RESP 18; TEMP 36.2; O2SAT 99
[2023-12-31] MEDS: SODIUM CHLORIDE 0.9% IV 1,000 ML 999 ML IV CONT (01:49)
[2023-12-31 01:52] LABS: Basophils Absolute Auto 0.1 K/mm3 (0.0-0.1); Basophils Percent Auto 0.3 % (0.2-1.2); Hematocrit 31.6 % (42.0-52.0); Hemoglobin 9.6 g/dL (14.0-18.0); Immature Granulocyte Percent A 0.5 % (0-0.5); Lymphocytes Absolute Auto 1.67 K/mm3 (0.9-3.2); Lymphocytes Percent Auto 8.4 % (18.3-44.2); Mean Corpuscular HGB Conc 30.4 g/dl (32-36); Mean Corpuscular Hemoglobin 28.3 pg (26-34); Mean Corpuscular Volume 93.2 fl (80-100); Mean Platelet Volume 9.8 fl (7.4-10.4); Monocytes Absolute Auto 1.9 K/mm3 (0.1-0.6); Monocytes Percent Auto 9.6 % (2.6-8.5); Neutrophils Absolute Auto 16.1 K/mm3 (1.3-6.7); Neutrophils Percent Auto 81.2 % (45.5-73.1); Platelet Count Result 287 k/mm3 (150-375); Red Blood Count 3.39 M/mm3 (4.6-6.20); Red Cell Distribution Width 14.8 % (11.5-14.5); White Blood Count 19.8 K/mm3 (4.5-10.0)
[2023-12-31 02:17] LABS: Alanine Aminotransferase 13 U/L (6-50); Albumin Level 3.8 g/dL (3.5-5.1); Alkaline Phosphatase 83 U/L (38-126); Anion Gap 13 mmol/L (4-12); Aspartate Amino Transferase 18 U/L (17-59); Bilirubin,Total 0.4 mg/dL (0.2-1.3); Blood Urea Nitrogen 48 mg/dL (9-20); Calcium 9.2 mg/dL (8.4-10.2); Carbon Dioxide 23 mmol/L (22-30); Chloride 102 mmol/L (98-107); Estimated CRCL calculation 64 ml/min; Estimated Glomerular Filt Rate > 60; Glucose 154 mg/dL (65-110); Potassium 4.4 mmol/L (3.4-5.0); Sodium 138 mmol/L (137-145)
--- NOTE | 2023-12-31 03:29 | ED.EPISTAXIS ---
HPI - Epistaxis General Chief complaint: Epistaxis Stated complaint: nose bleed Time Seen by Provider: 12/31/23 01:37 History of Present Illness HPI Narrative: Patient is a 68-year-old male who presents to the emergency department this evening complaining of a nose bleed. Patient had an outpatient ENT surgery performed by Dr. Luu this morning at 7:00 a.m. where he had nasal polyp removed and some sinus surgery. The patient states that shortly after the surgery he started to have some bleeding soaking through [address] Luu informed him that this is normal bleeding and should improve throughout the day. Patient states that the bleeding never stopped and he was passing large blood clots. Patient states that the blood was also draining at the back of his throat causing him to swallow some blood. Patient finally decided to come to the emergency department earlier today and waited in the waiting room for multiple hours due to long wait times and finally decided to go home. Patient states that while he was at home the bleeding stopped for short period him and then returned again and patient states that it was starting to become difficult for him to breathe so he called 911 and was brought to our facility via EMS. He states that he tried holding pressure multiple times with no improvement Patient was taken to triage which initially. By the time he was brought back to a room bleeding has subsided. Patient denies any additional concerns or symptoms at this time. Related Data Home Medications Medication Instructions Recorded Confirmed paroxetine HCl 40 mg tablet (Paxil) 40 mg PO DAILY 03/02/21 12/30/23 tamsulosin 0.4 mg capsule 0.4 mg PO DAILY 03/02/21 12/30/23 aspirin 81 mg capsule 81 mg PO DAILY 09/10/23 12/30/23 clopidogrel 75 mg tablet 75 mg PO DAILY 09/10/23 12/30/23 ezetimibe 10 mg tablet 10 mg PO DAILY 09/10/23 12/30/23 lisinopril 40 mg tablet 40 mg PO DAILY 09/10/23 12/30/23 metoprolol tartrate 50 mg tablet 50 mg PO BID 09/10/23 12/30/23 acetaminophen 500 mg capsule 1,000 mg PO QID PRN Pain 10/10/23 12/30/23 atorvastatin 40 mg tablet 40 mg PO HS 10/10/23 12/30/23 cetirizine 10 mg tablet (Zyrtec) 10 mg PO DAILY 10/10/23 12/30/23 fluticasone propionate 50 2 spray intranasal DAILY PRN Nasal 10/10/23 12/30/23 mcg/actuation nasal Congestion spray,suspension (Flonase Allergy Relief) semaglutide (weight loss) 2.4 2.4 mg subcut WEEKLY WEIGHT LOSS 10/10/23 12/24/23 mg/0.75 mL subcutaneous pen injector amoxicillin 875 mg-potassium 1 tablet PO BID 12/24/23 12/30/23 clavulanate 125 mg tablet Allergies Allergy/AdvReac Type Severity Reaction Status Date / Time No Known Allergies Allergy Verified 12/30/23 06:24 Review of Systems Review of Systems: All systems are reviewed and are negative unless stated otherwise in the HPI. [facility] Past Medical History Medical History Allergies Chronic seasonal allergic rhinitis Depression Hypertension Obstructive sleep apnea Osteoarthritis, knee Surgical History Surgical History History of angioplasty History of heart artery stent History of total knee arthroplasty (10/23/23) left Family History Family History Father Diabetes mellitus Hypertension Cerebrovascular accident Mother Depression Heart disease Sibling Malignant neoplasm of prostate Testicular cancer Depression Diabetes mellitus Sibling Depression Social History Social History Smoking packs per day: 2 Smoking cigarettes per day: 40.0 Years smoked: 30 Smoking pack-years: 60.00 Smoking status: Former smoker Second hand tobacco smoke exposure: No Additional smoking assessment comments: DENIES ANY FORM OF TOBACCO USE Alcohol intake
[2023-12-31 03:54] VITALS: BP 125/75; PULSE 83; RESP 18; O2SAT 100
== END 2023-12-31 03:55 | disposition home or self-care (01) ==
PROVIDERS: Emergency Provider Emergency Medicine; PCP Internal Medicine
DX: R04.0 Epistaxis (principal); F32.A Depression, unspecified; I10 Essential (primary) hypertension; G47.30 Sleep apnea, unspecified
CPT/HCPCS: 30901; 36415; 80053; 85025; 88305; 88307; 96360; 99283; A9270; J0690; J1100; J2405; J2704; J3010; J7030; J7120

== ENCOUNTER 2024-01-15 07:20 | Outpatient (CLI) | payer MEDICARE, OTHER, SELFPAY ==
[2024-01-15 07:53] LABS: Basophils Absolute Auto 0.1 K/mm3 (0.0-0.1); Basophils Percent Auto 0.6 % (0.2-1.2); Eosinophils Absolute Auto 0.5 K/mm3 (0-0.3); Eosinophils Percent Auto 4.8 % (0-4.4); Hematocrit 27.7 % (42.0-52.0); Hemoglobin 8.3 g/dL (14.0-18.0); Immature Granulocyte Absolute 0.04 K/mm3 (0.00-0.031); Immature Granulocyte Percent A 0.4 % (0-0.5); Lymphocytes Percent Auto 25.7 % (18.3-44.2); Mean Corpuscular Hemoglobin 27.7 pg (26-34); Mean Corpuscular Volume 92.3 fl (80-100); Mean Platelet Volume 8.5 fl (7.4-10.4); Monocytes Absolute Auto 0.9 K/mm3 (0.1-0.6); Monocytes Percent Auto 9.6 % (2.6-8.5); Neutrophils Absolute Auto 5.5 K/mm3 (1.3-6.7); Neutrophils Percent Auto 58.9 % (45.5-73.1); Platelet Count Result 349 k/mm3 (150-375); Red Cell Distribution Width 15.3 % (11.5-14.5); White Blood Count 9.3 K/mm3 (4.5-10.0)
[2024-01-15 08:03] LABS: Alanine Aminotransferase 11 U/L (6-50); Alkaline Phosphatase 112 U/L (38-126); Anion Gap 9 mmol/L (4-12); Aspartate Amino Transferase 19 U/L (17-59); Bilirubin,Total 0.3 mg/dL (0.2-1.3); Blood Urea Nitrogen 21 mg/dL (9-20); Calcium 9.3 mg/dL (8.4-10.2); Carbon Dioxide 27 mmol/L (22-30); Chloride 103 mmol/L (98-107); Cholesterol 100 mg/dL (0-200); Estimated Glomerular Filt Rate > 60; Glucose 95 mg/dL (65-110); HDL Direct 48 mg/dL; Sodium 139 mmol/L (137-145); Triglycerides 66 mg/dL (<150)
[2024-01-15 08:14] LABS: LDL Cholesterol Direct 36 mg/dL
== END 2024-01-15 07:21 | disposition home or self-care (01) ==
PROVIDERS: PCP Internal Medicine; Visit Provider Internal Medicine
DX: E78.5 Hyperlipidemia, unspecified (principal)
CPT/HCPCS: 36415; 80053; 80061; 85025; 99212; G0463

== ENCOUNTER 2024-05-01 08:45 | Outpatient (CLI) | payer MEDICARE, OTHER, SELFPAY ==
[2024-05-01 09:34] LABS: Basophils Absolute Auto 0.1 K/mm3 (0.0-0.1); Basophils Percent Auto 0.9 % (0.2-1.2); Eosinophils Absolute Auto 0.4 K/mm3 (0-0.3); Eosinophils Percent Auto 4.4 % (0-4.4); Hematocrit 35.9 % (42.0-52.0); Hemoglobin 11.1 g/dL (14.0-18.0); Immature Granulocyte Absolute 0.03 K/mm3 (0.00-0.031); Immature Granulocyte Percent A 0.3 % (0-0.5); Lymphocytes Absolute Auto 1.47 K/mm3 (0.9-3.2); Lymphocytes Percent Auto 15.7 % (18.3-44.2); Mean Corpuscular HGB Conc 30.9 g/dl (32-36); Mean Corpuscular Hemoglobin 25.1 pg (26-34); Mean Platelet Volume 9.5 fl (7.4-10.4); Monocytes Absolute Auto 0.8 K/mm3 (0.1-0.6); Monocytes Percent Auto 8.9 % (2.6-8.5); Neutrophils Absolute Auto 6.5 K/mm3 (1.3-6.7); Neutrophils Percent Auto 69.8 % (45.5-73.1); Platelet Count Result 254 k/mm3 (150-375); Red Blood Count 4.43 M/mm3 (4.6-6.20); Red Cell Distribution Width 19.4 % (11.5-14.5); White Blood Count 9.3 K/mm3 (4.5-10.0)
[2024-05-01 09:46] LABS: Alanine Aminotransferase 14 U/L (6-50); Albumin Level 4.1 g/dL (3.5-5.1); Alkaline Phosphatase 116 U/L (38-126); Anion Gap 5 mmol/L (4-12); Aspartate Amino Transferase 20 U/L (17-59); Bilirubin,Total 0.5 mg/dL (0.2-1.3); Blood Urea Nitrogen 21 mg/dL (9-20); Calcium 9.3 mg/dL (8.4-10.2); Carbon Dioxide 24 mmol/L (22-30); Chloride 107 mmol/L (98-107); Cholesterol 104 mg/dL (0-200); Estimated Glomerular Filt Rate > 60; Glucose 103 mg/dL (65-110); HDL Direct 50 mg/dL; Potassium 3.9 mmol/L (3.4-5.0); Sodium 136 mmol/L (137-145); Triglycerides 77 mg/dL (<150)
[2024-05-01 09:57] LABS: LDL Cholesterol Direct 35 mg/dL
[2024-05-01 10:15] LABS: Prostate Specific Antigen 1.4 ng/mL (< OR = 4.0); Thyroid Stimulating Hormone 0.568 uIU/mL (0.465-4.680)
[2024-05-01 10:29] LABS: Free T4 Free Thyroxine 1.23 ng/dL (0.78-2.19)
[2024-05-01 10:43] LABS: Urine Cotinine NEGATIVE
[2024-05-01 10:44] LABS: MRSA (PCR) NOT DETECTED (NOT DETECTE)
[2024-05-01 10:45] LABS: Hemoglobin A1C 5.2 % (<5.7)
== END 2024-05-01 08:46 | disposition home or self-care (01) ==
PROVIDERS: PCP Internal Medicine; Visit Provider Orthopaedic Surgery
DX: M17.11 Unilateral primary osteoarthritis, right knee (principal); Z01.818 Encounter for other preprocedural examination; I10 Essential (primary) hypertension; N42.9 Disorder of prostate, unspecified
CPT/HCPCS: 36415; 80053; 80061; 80307; 83036; 84153; 84439; 84443; 85025; 86850; 86900; 86901; 87641; 99212; G0463

== ENCOUNTER 2024-05-11 00:19 | Day surgery (SDC) | payer MEDICARE, OTHER, SELFPAY ==
[2024-04-22 13:26] VITALS: BMI 39.1
--- NOTE | 2024-04-22 14:06 | PC.NURSE ---
Report to the Outpatient Waiting Room, entrance under the green pavilion located off [address], at time ___8:00AM____ on date ___05/11/23____. Planned Procedure Time: __10:00AM .? Time changes happen often and if your time is changed the preop area will call you the afternoon before. - You and your visitor will be asked to self-screen and do not enter if you have any COVID symptoms. Please call surgeon if you need to reschedule. - A mask is optional within the hospital at this time. Patients may have clear liquids (water, carbonated beverages, clear teas, apple juice) until 3 hours prior to surgery with a maximum of 20 ounces. - No food from midnight until time of surgery and no smoking. This includes no chewing gum, candy or mints. Take only the following medications with a SIP of water on the morning of surgery: ASPIRIN(told by Dr Yancey to take on day of surgery), METOPROLOL, PAROXETINE DO NOT STOP ANY OF YOUR OTHER PRESCRIPTION MEDICATIONS PRIOR TO SURGERY EXCEPT THE FOLLOWING Medications to discontinue per physician HOLD PLAVIX 5 DAYS PRE-OP PER DR YANCEY- LAST DOSE 05/05/24. HOLD SEMAGLUTIDE 10 DAYS PRE-OP PER ANESTHESIA- LAST DOSE 04/30/24 Please no make-up, nail barbadian, hairspray, perfume, deodorant, or body powder the day of surgery.? No jewelry (including any body piercings) or valuables the day of surgery, leave them at home.? Please take a shower or bath the night before, or the morning of, surgery with an antibacterial soap.? Wear comfortable, loose fitting clothing.? Children are encouraged to wear pajamas. - Jewelry must be removed prior to entering the operating room.? Rings and piercings that are not removed may be cut off. - The hospital will not accept responsibility for valuables.? - Please leave all valuables, including medications, at home the day of surgery. If you are going home after surgery, a licensed parts delivery driver must drive you home.? - NO public transportation without another adult if you receive anesthesia. - We recommend that an adult stay with you for 24 hours following discharge. - We also recommend that you do not drive, make important decision, drink alcoholic beverages, or take any drugs that were not prescribed by your health care provider for at least 24 hours after your discharge time. Follow any additional instructions given to you from your surgeon. Telephone instructions given to ____PATIENT and asked if any additional questions and then verbalized understanding. Patient advised to call surgeon office or pre surgery nurse liaison [phone] if any additional questions. Report to the Outpatient Waiting Room, entrance under the green pavilion located off [address], at time on date . Planned Procedure Time: .? Time changes happen often and if your time is changed the preop area will call you the afternoon before. - You and your visitor will be asked to self-screen and do not enter if you have any COVID symptoms. Please call surgeon if you need to reschedule. - A mask is optional within the hospital at this time. Patients may have clear liquids (water, carbonated beverages, clear teas, apple juice) until 3 hours prior to surgery with a maximum of 20 ounces. - No food from midnight until time of surgery and no smoking. This includes no chewing gum, candy or mints. - Infants may have breast milk until 4 hours before surgery, infant formula 6 hours prior to surgery. - Children will be allowed to drink immediately following surgery.? If applicable, please bring a bottle or sippy cup to assist with drinking. Juice, water, soda, and popsicles are readily available.? For infants on formula, please bring formula the day of surgery.? Pacifiers are allowed. Take only the following medications with a SIP of water on the morning of surgery: DO NOT STOP ANY OF YOUR OTHER PRESCRIPTION MEDICATIONS PRIOR TO SURGERY EXCEPT THE FOLLOWING Medications to discontinue per physician Date to take last dose Please no make-up, nail barbadian, hairspray, perfume, deodorant, or body powder the day of surgery.? No jewelry (including any body piercings) or valuables the day of surgery, leave them at home.? Please take a shower or bath the night before, or the morning of, surgery with an antibacterial soap.? Wear comfortable, loose fitting clothing.? Children are encouraged to wear pajamas. - Jewelry must be removed prior to entering the operating room.? Rings and piercings that are not removed may be cut off. - The hospital will not accept responsibility for valuables.? - Please leave all valuables, including medications, at home the day of surgery. If you are going home after surgery, a licensed parts delivery driver must drive you home.? - NO public transportation without another adult if you receive anesthesia. - We recommend that an adult stay with you for 24 hours following discharge. - We also recommend that you do not drive, make important decision, drink alcoholic beverages, or take any drugs that were not prescribed by your health care provider for at least 24 hours after your discharge time. For Pediatric surgeries, we recommend two adults accompany the child home. Follow any additional instructions given to you from your surgeon. Telephone instructions given to and asked if any additional questions and then verbalized understanding. Patient advised to call surgeon office or pre surgery nurse liaison [phone] if any additional questions.
--- NOTE | 2024-05-07 07:26 | P.HP_ITS ---
H&P: HPI History of Present Illness Date/Time: 05/07/24 07:26 Chief Complaint: Patient has arthritis right knee. He has failed conservative treatment like to consider knee replacement surgery. He has had a previous left knee replacement has done well from that. We will proceed with total knee on the right. Review of Systems Musculoskeletal: Musculoskeletal: Reports arthralgias and Reports joint swelling PMFSH Past Medical History Medical History (Updated 05/07/24 @ 07:29 by Gabino López MD) Osteoarthritis of knees, bilateral Depression Chronic seasonal allergic rhinitis Obstructive sleep apnea Osteoarthritis, knee Hypertension Allergies Surgical History Surgical History History of heart artery stent History of total knee arthroplasty (10/23/23) left History of angioplasty Family History Family History Father Diabetes mellitus Hypertension Cerebrovascular accident Mother Depression Heart disease Sibling Malignant neoplasm of prostate Testicular cancer Depression Diabetes mellitus Sibling Depression Social History Social History Smoking packs per day: 1.25 Smoking cigarettes per day: 25.0 Years smoked: 20 Smoking pack-years: 25.00 Smoking status: Former smoker Tobacco type: cigarettes Second hand tobacco smoke exposure: No Smoking end date: 11/04/03 Additional smoking assessment comments: DENIES ANY FORM OF TOBACCO USE Alcohol intake: current Alcohol use details: ONE DRINK PER MONTH Substance use: never Substance use type: does not use Last use: 12/23/08 Do You Feel Safe in your Home?: Yes Lack of Transportation: No Lack of Food: Never True Current Housing: I Have Housing Concerned About Future Housing: No Difficulty Paying Gas/Electric Bills: No Difficulty Paying for Meds: No Currently Unemployed: No Education: Master's Degree or Higher Difficulty w/ Childcare or Family Care: No Living arrangements: with family Additional living arrangements comments: 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e patient): Male Spiritual care concerns: No Meds Home Medications and Allergies Home Medications ?Medication ?Instructions ?Recorded ?Confirmed ?Type paroxetine HCl 40 mg tablet (Paxil) 40 mg PO DAILY 03/02/21 04/22/24 History tamsulosin 0.4 mg capsule 0.4 mg PO DAILY 03/02/21 04/22/24 History aspirin 81 mg capsule 81 mg PO DAILY 09/10/23 04/22/24 History clopidogrel 75 mg tablet 75 mg PO DAILY 09/10/23 04/22/24 History ezetimibe 10 mg tablet 10 mg PO DAILY 09/10/23 04/22/24 History lisinopril 40 mg tablet 40 mg PO DAILY 09/10/23 04/22/24 History metoprolol tartrate 50 mg tablet 50 mg PO BID 09/10/23 04/22/24 History acetaminophen 500 mg capsule 1,000 mg PO QID PRN Pain 10/10/23 04/22/24 History atorvastatin 40 mg tablet 40 mg PO HS 10/10/23 04/22/24 History cetirizine 10 mg tablet (Zyrtec) 10 mg PO DAILY 10/10/23 04/22/24 History semaglutide (weight loss) 2.4 2.4 mg subcut WEEKLY WEIGHT LOSS 10/10/23 04/22/24 History mg/0.75 mL subcutaneous pen injector ibuprofen 200 mg capsule 400 mg PO ONCE PRN pain 04/22/24 04/22/24 History Allergies Allergy/AdvReac Type Severity Reaction Status Date / Time No Known Allergies Allergy Verified 04/22/24 13:18 Exam Narrative: On examination he has motion from about the 3 to 110?. He has significant varu s deformity. He has got grinding crepitus and pain with any manipulation. Neurologically he is intact. He walks with an antalgic gait. Eyes: General: appearance normal, both eyes and all related structures Neck: Neck: supple Resp: Effort & Inspection: normal respiratory effort Cardio: Rate: regular rate Rhythm: regular rhythm Assessment and Plan Assessment and plan (1) Osteoarthritis of right knee: Code(s): M17.11 - Unilateral primary osteoarthritis, right knee Status: Acute Assessment and Plan: Patient has osteoarthritis right knee. He has [id number]. He has varus deformity and walks with antalgic gait. He has pain with any manipulation. I have discussed treatment options with him: Risks, benefits, limitations, and alternatives in detail. Will proceed per his request discussed.
[2024-05-11] VITALS (14 sets, daily range): BP systolic 120–169; BP diastolic 70–97; PULSE 77–99; RESP 14–20; TEMP 36.1–36.9; O2SAT 95–100
--- NOTE | ~2024-05-11 | XR_ITS ---
EXAMINATION: [id number] DATE: 05/11/2024 12:35 INDICATION: Total right knee arthroplasty. Postop. TECHNIQUE: 2 views of right knee were obtained. COMPARISON: Right knee radiographs 09/10/23 FINDINGS: There is a total right knee arthroplasty with patellar resurfacing in near-anatomic alignme nt. No fracture. There is gas in the soft tissues, consistent with recent surgery. Anterior skin stap les are noted. IMPRESSION: 1. Total right knee arthroplasty in near-anatomic alignment. Reviewed, dictated and finalized at location A. IST'S DECORATOR
--- NOTE | 2024-05-11 09:05 | WPDHPUPDATE1 ---
History and Physical Update Update Date/Time: 05/11/24 09:05 History and Physical has been reviewed, including an updated exam of the patient. There are NO changes in the patient's condition. Risks, benefits, and alternatives have been discussed and questions answered. Patient agrees to proceed with procedure.
--- NOTE | 2024-05-11 09:40 | WPDANESEPPF ---
Anes - Initial Pre Proc Eval Procedure: Operation Date: 05/11/24 10:00 Proposed Procedures p Right Total Knee Arthroplasty - Gabino López MD Date/Time: 05/11/24 09:40 Surgeon: Gabino López MD Pre Op Diagnosis: oa right knee Patient Data Age: 68 Gender: M Height: 1.68 m Weight: 107 kg Last Vital Signs Temp 36.9 C 05/11/24 07:40 Pulse 77 05/11/24 07:40 Resp 16 05/11/24 07:40 BP 151/80 H 05/11/24 07:40 Pulse Ox 100 05/11/24 07:40 O2 Del Method Room Air 05/11/24 07:40 Allergies Allergy/AdvReac Type Severity Reaction Status Date / Time No Known Allergies Allergy Verified 05/11/24 09:06 Home Medications ?Medication ?Instructions ?Recorded ?Confirmed ?Type paroxetine HCl 40 mg tablet (Paxil) 40 mg PO DAILY 03/02/21 05/11/24 History tamsulosin 0.4 mg capsule 0.4 mg PO DAILY 03/02/21 05/11/24 History aspirin 81 mg capsule 81 mg PO DAILY 09/10/23 05/11/24 History clopidogrel 75 mg tablet 75 mg PO DAILY 09/10/23 05/11/24 History ezetimibe 10 mg tablet 10 mg PO DAILY 09/10/23 04/22/24 History lisinopril 40 mg tablet 40 mg PO DAILY 09/10/23 05/11/24 History metoprolol tartrate 50 mg tablet 50 mg PO BID 09/10/23 05/11/24 History acetaminophen 500 mg capsule 1,000 mg PO QID PRN Pain 10/10/23 04/22/24 History atorvastatin 40 mg tablet 40 mg PO HS 10/10/23 05/11/24 History cetirizine 10 mg tablet (Zyrtec) 10 mg PO DAILY 10/10/23 05/11/24 History semaglutide (weight loss) 2.4 2.4 mg subcut WEEKLY WEIGHT LOSS 10/10/23 05/11/24 History mg/0.75 mL subcutaneous pen injector ibuprofen 200 mg capsule 400 mg PO ONCE PRN pain 04/22/24 04/22/24 History Patient hx anesthesia problems: none Family hx anesthesia problems: none Results Review: All pre-operative results and documents have been reviewed as part of the pre-operative evaluation. [facility] Past Medical History Medical History Osteoarthritis of knees, bilateral Depression Chronic seasonal allergic rhinitis Obstructive sleep apnea Osteoarthritis, knee Hypertension Allergies Surgical History Surgical History History of heart artery stent History of total knee arthroplasty (10/23/23) left History of angioplasty Family History Family History Father Diabetes mellitus Hypertension Cerebrovascular accident Mother Depression Heart disease Sibling Malignant neoplasm of prostate Testicular cancer Depression Diabetes mellitus Sibling Depression Social History Social History Smoking packs per day: 1.25 Smoking cigarettes per day: 25.0 Years smoked: 20 Smoking pack-years: 25.00 Smoking status: Former smoker Tobacco type: cigarettes Second hand tobacco smoke exposure: No Smoking end date: 11/04/03 Additional smoking assessment comments: DENIES ANY FORM OF TOBACCO USE Alcohol intake: current Alcohol use details: ONE DRINK PER MONTH Substance use: never Substance use type: does not use Last use: 12/23/08 Do You Feel Safe in your Home?: Yes Lack of Transportation: No Lack of Food: Never True Current Housing: I Have Housing Concerned About Future Housing: No Difficulty Paying Gas/Electric Bills: No Difficulty Paying for Meds: No Currently Unemployed: No Education: Master's Degree or Higher Difficulty w/ Childcare or Family Care: No Living arrangements: with family Additional living arrangements comments: 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 Informed Consent: The patient's anesthetic plan and its attendant risks and benefits were discussed with the patient/family/POA. Questions were solicited and answers provided to the satisfaction of the patient/family/POA.
--- NOTE | 2024-05-11 09:55 | WPDANESPNB ---
Anes - Peripheral Nerve Block Date/Time: 05/11/24 09:55 I have discussed with the patient/family/POA the placement of a peripheral nerve block for post-operative pain management, including associated risks, benefits, complications, and side effects. Alternative methods of post-operative analgesia were detailed. Questions were solicited and answers provided to the satisfaction of the patient/family/POA. Time-Out: A pre-procedural Time-Out was completed immediately before starting the procedure and confirmed: Patient Identification, Site, Procedure, Patient Position and the Availability of Requisite Equipment. Clinical Indications: Acute post-operative pain management requested by the operative surgeon. Nerve Block Insertion Note Anes-nerve block: adductor canal right Patient position: supine Skin prep: chlorhexidine Needle: 22 gauge, stimulating, insulated echogenic needle. Needle length: 80 mm Technique: ultrasound Technique comment: mid 2mg fent 50mcg Injectate: bupivacaine 0.5% with epi 5 mcg/ml (30ml no epi) and dexamethasone (mg) (4) Observations: tolerated well Complications: none Procedure start time:: 943 Procedure end time:: 950
[2024-05-11] MEDS: ceFAZolin 2 GM/D5W 50 ML 2 GM/50 ML BAG IVPB ×2 (10:00→18:46)
[2024-05-11] MEDS: TRANEXAMIC ACID 1,000MG/ISO100 1,000 MG/100 ML BAG 200 MG IVPB (10:05)
[2024-05-11] MEDS: SODIUM CHLORIDE 0.9% IV 37.7 ML, MORPHINE SULFATE INJ (*CRX) 2 MG, ROPivacaine HCL 1% 2... INFILTRATE (10:31)
[2024-05-11] MEDS: GENTAMICIN BONE CEMENT REFOBACIN 1 EACH TOPICAL (10:43)
[2024-05-11] MEDS: TRANEXAMIC ACID 1,000 MG/10 ML AMPUL 1000 MG IV PUSH (11:35)
--- NOTE | 2024-05-11 11:46 | P.OP_ITS ---
Procedure Note - Detailed Date of Procedure 05/11/24 Pre-op Diagnosis Osteoarthritis right knee Post-op Diagnosis Same Procedure Performed RIGHT total knee arthroplasty Surgeon Gabino López MD Digital Community Manager Rashaun Godoy Anesthesia General Indications Pain and Arthritis Description of Procedure The patient was brought to operating room #8. A general anesthetic was administered. Placed on the operating table and sterilely prepped and draped in usual manner. A longitudinal incision was made. Tourniquet inflated to 300 mmHg for a total of 65 minutes. Dissection was carried down to the fascia. Medial parapatellar incision was made and the patella subluxated laterally. Patella cut from 27 to 16 mm and sized for a 37 mm button. The tibia was cut perpendicular to the long axis and femur cut in 5 degrees of valgus. An extra 3mm of bone was done to address the flexion contracture. A 67.5 femur trialed. 71 tibia was felt to fit the best. The soft tissues balanced, hemostasis obtained. All [address], 71 tibia, 67.5 femur, 37 mm patella, and 10AS mm poly. Motion was 0-125 degrees with good stability in both flexion and extension. The wound was closed with #2 Vicryl, 2-0 Vicryl and doug. [employer] Estimated Blood Loss 200 Drains No Packing No Pathology None sent Complications No immediate complications Condition Stable Disposition PACU [facility] Billing Surgery - Charge Forward: Surgery Billing ([id number] Total Knee)
[2024-05-11] MEDS: LACTATED RINGERS 1,000 ML 30 ML IV CONT ×2 (12:16)
[2024-05-11] MEDS: fentaNYL CITRATE INJ (*CRX) 100 MCG/2 ML VIAL 25 MCG IV PUSH ×2 (12:48→13:02)
--- NOTE | 2024-05-11 15:01 | PC.NURSE ---
This patient, Eddi Gallego, was admitted to Medical Room 345-. Patient/family oriented to hospital policies and general routines including ID bracelet, bed and alarms, visiting hours, pain management, procedures, bathroom and other care routines, personal items, smoking policy, room service/diet, and visiting hours. Information on how to activate the Rapid Response Team has been discussed. Patient/Family are encouraged to report perceived risks to care and to ask questions if they do not understand what they are told or what they should do.
[2024-05-11] MEDS: CELECOXIB 200 MG CAPSULE PO (16:16)
[2024-05-11] MEDS: HYDROcodone/acetaminophen (*CRX) 7.5-325 MG TABLET 1 TAB PO ×2 (16:16→20:15)
[2024-05-11] MEDS: SENNA/DOCUSATE SODIUM TABLET 2 TAB PO (16:16)
[2024-05-11] MEDS: RIVAROXABAN 10 MG TABLET PO (16:17)
[2024-05-11] MEDS: METOPROLOL TARTRATE 50 MG TAB PO (19:49)
[2024-05-11] MEDS: ATORVASTATIN 40 MG TABLET PO (19:50)
[2024-05-11] MEDS: TAMSULOSIN HCL 0.4 MG CAPSULE PO (19:50)
--- NOTE | 2024-05-11 20:37 | P.CONIM_ITS ---
Assessment and Plan Assessment and plan (1) Osteoarthritis of right knee: Code(s): M17.11 - Unilateral primary osteoarthritis, right knee Status: Acute Assessment and Plan: - s/p RIGHT total knee arthroplasty. - Pain meds PRN. - PT eval and treatment with Ortho restrictions. - Fall precautions. - Further mgt per Ortho. (2) Hypertension: Qualifiers: Hypertension type: primary hypertension Qualified Code(s): I10 - Essential (primary) hypertension Code(s): I10 - Essential (primary) hypertension Status: Acute Assessment and Plan: - BP fairly well controlled. - Resume Lisinopril and Metoprolol in AM. (3) History of heart artery stent: Code(s): Z95.5 - Presence of coronary angioplasty implant and graft Status: Acute Assessment and Plan: - Continue Statin, Ezetimibe and Metoprolol. - Aspirin and Plavix resumption per Ortho. (4) Morbid obesity: Code(s): E66.01 - Morbid (severe) obesity due to excess calories Status: Acute Assessment and Plan: - Encouraged with lifestyle modification. (5) Obstructive sleep apnea: Code(s): G47.33 - Obstructive sleep apnea (adult) (pediatric) Status: Acute Assessment and Plan: - CPAP bedtime. - Supplemental O2 bedtime if unable to tolerate CPAP. (6) BPH (benign prostatic hyperplasia): Code(s): N40.0 - Benign prostatic hyperplasia without lower urinary tract symptoms Status: Acute Assessment and Plan: - Continue Tamsulosin. HPI Date of Consult Consult date: 05/11/24 Requesting Physician: Gabino López MD Primary Care Provider: Roland Ojeda, Consult Narrative Narrative: Eddi Gallego is a 68 year old male with a Hx of osteoarthritis to R. Knee. Patient underwent a successful RIGHT total knee arthroplasty with no complica tions. Patient denies any pain currently and states he's comfortable. Pt ambulated with PT in the room and states he tolerated well. Patient denies any numbness or tingling to the R. Knee. Review of Systems Review of Systems: All systems reviewed & are unremarkable except as noted in HPI and below PMFSH Past Medical History Medical History (Updated 05/11/24 @ 20:50 by Miriam Noel NP) Obstructive sleep apnea Osteoarthritis of knees, bilateral Depression Chronic seasonal allergic rhinitis Osteoarthritis, knee Hypertension Allergies Surgical History Surgical History (Updated 05/11/24 @ 20:45 by Miriam Noel NP) History of heart artery stent History of total knee arthroplasty (10/23/23) left History of angioplasty Family History Family History Father Diabetes mellitus Hypertension Cerebrovascular accident Mother Depression Heart disease Sibling Malignant neoplasm of prostate Testicular cancer Depression Diabetes mellitus Sibling Depression Social History Social History Smoking packs per day: 1.25 Smoking cigarettes per day: 25.0 Years smoked: 20 Smoking pack-years: 25.00 Smoking status: Former smoker Tobacco type: cigarettes Second hand tobacco smoke exposure: No Additional smoking assessment comments: DENIES ANY FORM OF TOBACCO USE Alcohol intake: current Alcohol use details: ONE DRINK PER MONTH Substance use: never Substance use type: does not use Last use: 12/23/08 Do You Feel Safe in your Home?: Yes Lack of Transportation: No Lack of Food: Never True Current Housing: I Have Housing Concerned About Future Housing: No Difficulty Paying Gas/Electric Bills: No Difficulty Paying for Meds: No Currently Unemployed: No Education: Master's Degree or Higher Difficulty w/ Childcare or Family Care: No Living arrangements: with family Additional living arrangements comments: 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e patient): Male Spiritual care concerns: No Meds Home Medications and Allergies Home Medications ?Medication ?Instructions ?Recorded ?Confirmed ?Type paroxetine HCl 40 mg tablet (Paxil) 40 mg PO DAILY 03/02/21 05/11/24 History tamsulosin 0.4 mg capsule 0.4 mg PO DAILY 03/02/21 05/11/24 History aspirin 81 mg capsule 81 mg PO DAILY 09/10/23 05/11/24 History clopidogrel 75 mg tablet 75 mg PO DAILY 09/10/23 05/11/24 History ezetimibe 10 mg tablet 10 mg PO DAILY 09/10/23 04/22/24 History lisinopril 40 mg tablet 40 mg PO DAILY 09/10/23 05/11/24 History metoprolol tartrate 50 mg tablet 50 mg PO BID 09/10/23 05/11/24 History acetaminophen 500 mg capsule 1,000 mg PO QID PRN Pain 10/10/23 04/22/24 History atorvastatin 40 mg tablet 40 mg PO HS 10/10/23 05/11/24 History cetirizine 10 mg tablet (Zyrtec) 10 mg PO DAILY 10/10/23 05/11/24 History semaglutide (weight loss) 2.4 2.4 mg subcut WEEKLY WEIGHT LOSS 10/10/23 05/11/24 History mg/0.75 mL subcutaneous pen injector ibuprofen 200 mg capsule 400 mg PO ONCE PRN pain 04/22/24 04/22/24 History Allergies Allergy/AdvReac Type Severity Reaction Status Date / Time No Known Allergies Allergy Verified 05/11/24 09:06 Vital Signs Vital Signs - 24 hr 05/11/24 07:40 05/11/24 12:16 05/11/24 12:30 Temperature 98.5 F 97.1 F L Pulse Rate 77 81 84 Respiratory Rate 16 18 14 Blood Pressure 151/80 H 142/82 H 135/85 Pulse Oximetry 100 98 100 Oxygen Delivery Room Air Simple Face Mask Simple Face Mask Oxygen Flow Rate 6 6 05/11/24 12:45 05/11/24 13:00 05/11/24 13:15 Temperature Pulse Rate 86 87 85 Respiratory Rate 16 16 18 Blood Pressure 154/88 H 149/82 H 143/77 H Pulse Oximetry 100 100 95 Oxygen Delivery Room Air Room Air Room Air Oxygen Flow Rate 05/11/24 13:30 05/11/24 14:00 05/11/24 14:30 Temperature 97.0 F L Pulse Rate 82 83 81 Respiratory Rate 16 16 16 Blood Pressure 145/92 H 152/92 H 165/97 H Pulse Oximetry 97 98 98 Oxygen Delivery Room Air Room Air Room Air Oxygen Flow Rate 05/11/24 15:03 05/11/24 15:33 05/11/24 16:33 Temperature 97.8 F 97.8 F 98.2 F Pulse Rate 87 92 99 Respiratory Rate 18 20 19 Blood Pressure 169/92 H 161/83 H 143/76 H Pulse Oximetry 100 99 97 Oxygen Delivery Oxygen Flow Rate 05/11/24 19:47 05/11/24 19:49 Temperature 97.1 F L Pulse Rate 96 96 Respiratory Rate 20 Blood Pressure 120/70 Pulse Oximetry 99 Oxygen Delivery Oxygen Flow Rate Exam Narrative: General: Well appearing, no acute distress. HEENT: Atraumatic, PERRL, EOM, anicteric, moist mucosa. NECK: Supple. Lungs: Clear bilaterally. Heart: RRR, no murmurs. Abdomen: Soft, non-tender, non-distended, +ve BS X4 Quadrants. Extremities: No cyanosis, no edema. Skin: Warm and dry with no lesions. Neuro: Well oriented, CN II-XII grossly intact. Psych: Pleasant and co-operative. Quality VTE Prophylaxis VTE prophylaxis: mechanical ordered Hospitalist MIPS Advance Care Plan I have confirmed that the patient's Advanced Care Plan is present, code status is documented, or surrogate decision maker is listed in patient medical record.: Yes Medication Reconciliation I have utilized all available resources to obtain, update and review the patients current medications (includes all prescriptions, OTC, herbals, cannabis, and nutritional supplements).: Yes
[2024-05-12 01:08] VITALS: BP 106/66; PULSE 69; RESP 20; TEMP 36.2; O2SAT 99
[2024-05-12] MEDS: ceFAZolin 2 GM/D5W 50 ML 2 GM/50 ML BAG IVPB ×2 (01:08→09:21)
[2024-05-12] MEDS: HYDROcodone/acetaminophen (*CRX) 7.5-325 MG TABLET 1 TAB PO ×2 (01:22→05:23)
[2024-05-12 05:14] VITALS: BP 100/66; PULSE 83; RESP 18; TEMP 36.1; O2SAT 98
[2024-05-12 05:56] LABS: Basophils Absolute Auto 0.1 K/mm3 (0.0-0.1); Basophils Percent Auto 0.3 % (0.2-1.2); Hematocrit 30.5 % (42.0-52.0); Hemoglobin 9.5 g/dL (14.0-18.0); Immature Granulocyte Absolute 0.11 K/mm3 (0.00-0.031); Immature Granulocyte Percent A 0.6 % (0-0.5); Lymphocytes Absolute Auto 1.71 K/mm3 (0.9-3.2); Lymphocytes Percent Auto 9.5 % (18.3-44.2); Mean Corpuscular HGB Conc 31.1 g/dl (32-36); Mean Corpuscular Hemoglobin 25.4 pg (26-34); Mean Corpuscular Volume 81.6 fl (80-100); Mean Platelet Volume 9.7 fl (7.4-10.4); Monocytes Absolute Auto 2.1 K/mm3 (0.1-0.6); Monocytes Percent Auto 11.5 % (2.6-8.5); Neutrophils Absolute Auto 14.1 K/mm3 (1.3-6.7); Neutrophils Percent Auto 78.1 % (45.5-73.1); Platelet Count Result 258 k/mm3 (150-375); Red Blood Count 3.74 M/mm3 (4.6-6.20); Red Cell Distribution Width 19.4 % (11.5-14.5)
[2024-05-12 06:18] LABS: Anion Gap 5 mmol/L (4-12); Blood Urea Nitrogen 25 mg/dL (9-20); Calcium 8.9 mg/dL (8.4-10.2); Carbon Dioxide 28 mmol/L (22-30); Chloride 106 mmol/L (98-107); Estimated CRCL calculation 77 ml/min; Estimated Glomerular Filt Rate > 60; Glucose 103 mg/dL (65-110); Sodium 139 mmol/L (137-145)
--- NOTE | 2024-05-12 07:41 | PM.PNORT ---
Progress Note: A&P Assessment and Plan (1) Status post bilateral knee replacements: Code(s): Z96.653 - Presence of artificial knee joint, bilateral Status: Acute Assessment and Plan: Patient underwent total knee arthroplasty on the right for osteoarthritis. He has progressed reasonably well I think he can be dismissed home. Despite follow up 10 to 14 days for doug out. If he has any changes or problems he is instructed to call discussed. We discussed motion and he will work good diligently on that. Subjective Subjective Date/Time Seen: 05/12/24 07:41 Post Op day: 1 Principal diagnosis: Status post right total knee arthroplasty for osteoarthritis. Review of Systems Review of Systems: All systems reviewed & are unremarkable except as noted in HPI and below Exam Narrative: NVI Dressing intact Ambulates with a walker Resp: Effort & Inspection: normal respiratory effort Cardio: Rate: regular rate Rhythm: regular rhythm Objective Data Vital Signs Vital Signs: Vital Signs - 24 hr 05/11/24 12:16 05/11/24 12:30 05/11/24 12:45 Temperature 97.1 F L Pulse Rate 81 84 86 Respiratory Rate 18 14 16 Blood Pressure 142/82 H 135/85 154/88 H Pulse Oximetry 98 100 100 Oxygen Delivery Simple Face Mask Simple Face Mask Room Air Oxygen Flow Rate 6 6 05/11/24 13:00 05/11/24 13:15 05/11/24 13:30 Temperature Pulse Rate 87 85 82 Respiratory Rate 16 18 16 Blood Pressure 149/82 H 143/77 H 145/92 H Pulse Oximetry 100 95 97 Oxygen Delivery Room Air Room Air Room Air Oxygen Flow Rate 05/11/24 14:00 05/11/24 14:30 05/11/24 15:03 Temperature 97.0 F L 97.8 F Pulse Rate 83 81 87 Respiratory Rate 16 16 18 Blood Pressure 152/92 H 165/97 H 169/92 H Pulse Oximetry 98 98 100 Oxygen Delivery Room Air Room Air Oxygen Flow Rate 05/11/24 15:33 05/11/24 16:33 05/11/24 19:47 Temperature 97.8 F 98.2 F 97.1 F L Pulse Rate 92 99 96 Respiratory Rate 20 19 20 Blood Pressure 161/83 H 143/76 H 120/70 Pulse Oximetry 99 97 99 Oxygen Delivery Oxygen Flow Rate 05/11/24 19:49 05/11/24 20:00 05/12/24 01:08 Temperature 97.1 F L Pulse Rate 96 69 Respiratory Rate 20 Blood Pressure 106/66 Pulse Oximetry 99 Oxygen Delivery Room Air Oxygen Flow Rate 05/12/24 05:14 Temperature 97.0 F L Pulse Rate 83 Respiratory Rate 18 Blood Pressure 100/66 Pulse Oximetry 98 Oxygen Delivery Oxygen Flow Rate Intake/Output Intake/Output: Intake & Output 05/09/24 05/10/24 05/11/24 05/12/24 23:59 23:59 23:59 23:59 Intake Total 1040 650 Output Total 300 Balance 740 650 Meds/Results Medications: Active Medications Generic Name Dose Route Start Last Admin Trade Name Freq PRN Reason Stop Dose Admin Hydrocodone Bitart/Acetaminophen 1 tab 05/11/24 14:48 Hydrocodone/Acetaminophen (*Crx) 5-325 Mg Tablet PO Q4H PRN Pain Rated 4-6 Hydrocodone Bitart/Acetaminophen 1 tab 05/11/24 14:48 05/12/24 05:23 Hydrocodone/Acetaminophen (*Crx) 7.5-325 Mg Tablet PO 1 tab Q4H PRN Administration Pain Rated 7-10 Atorvastatin Calcium 40 mg 05/11/24 21:00 05/11/24 19:50 Atorvastatin 40 Mg Tablet PO 40 mg HS ELA Administration Celecoxib 200 mg 05/11/24 17:00 05/11/24 16:16 Celecoxib 200 Mg Capsule PO 200 mg BIDWM ELA Administration Cyclobenzaprine HCl 10 mg 05/11/24 14:48 Cyclobenzaprine Hcl 10 Mg Tablet PO Q8H PRN Spasms Diphenhydramine HCl 25 mg 05/11/24 14:48 Diphenhydramine Hcl Inj 50 Mg/Ml Vial IV PUSH Q6H PRN Itching Ezetimibe 10 mg 05/12/24 09:00 Ezetimibe 10 Mg Tablet PO DAILY ELA Hydromorphone HCl 1 mg 05/11/24 14:48 Hydromorphone Hcl Inj (*Crx) 1 Mg/Ml Syr IV PUSH Q2H PRN Breakthrough Pain Rated 7-10 or NPO Hydromorphone HCl 0.5 mg 05/11/24 14:48 Hydromorphone Hcl Inj (*Crx) 1 Mg/Ml Syr IV PUSH Q2H PRN Breakthrough Pain Rated 4-6 or NPO Cefazolin Sodium 2 gm in 50 mls @ 100 mls/hr 05/11/24 18:00 05/12/24 01:38 Ancef 2 Gm/D5w 50 Ml IVPB 05/12/24 10:29 Infused Q8H [facility] Infusion Ibuprofen 800 mg in 200 mls @ 400 mls/hr 05/11/24 14:48 Caldolor 800 Mg/200 Ml IVPB Q6H PRN Breakthrough Pain Rated 1-3 or NPO Lisinopril 40 mg 05/12/24 09:00 Lisinopril 20 Mg Tablet PO DAILY [facility] Loratadine 10 mg 05/12/24 09:00 Loratadine 10 Mg Tablet PO QAM [facility] Metoprolol Tartrate 50 mg 05/11/24 21:00 05/11/24 19:49 Metoprolol Tartrate 50 Mg Tab PO 50 mg Q12HR ELA Administration Naloxone HCl 0.1 mg 05/11/24 14:48 Naloxone Hcl 0.4 Mg/Ml Vial IV PUSH Q2M PRN Opiate Reversal Ondansetron HCl 4 mg 05/11/24 14:48 Ondansetron Inj 4 Mg/2 Ml Vial IV PUSH Q4H PRN Nausea And Vomiting Paroxetine HCl 40 mg 05/12/24 09:00 Paroxetine 20 Mg Tablet PO DAILY [facility] Polyethylene Glycol 17 gm 05/12/24 09:00 Polyethylene Glycol 3350 17 Gm Powd.Pack PO QAM [facility] Rivaroxaban 10 mg 05/11/24 17:00 05/11/24 16:17 Rivaroxaban 10 Mg Tablet PO 05/22/24 17:01 10 mg DAILY@17 ELA Administration Senna/Docusate Sodium 2 tab 05/11/24 17:00 05/11/24 16:16 Senna/Docusate Sodium Tablet PO 2 tab BID ELA Administration Tamsulosin HCl 0.4 mg 05/11/24 21:00 05/11/24 19:50 Tamsulosin Hcl 0.4 Mg Capsule PO 0.4 mg HS [facility] Administration Tramadol HCl 50 mg 05/11/24 14:48 Tramadol Hcl (*Crx) 50 Mg Tablet PO Q4H PRN Pain Rated 1-3 Radiology Results: ITS Impressions Knee X-Ray 05/11/24 12:37 IMPRESSION: 1. Total right knee arthroplasty in near-anatomic alignment. Labs Labs: Laboratory Results - last 24 hr 05/12/24 05:32 WBC 18.0 H RBC 3.74 L Hgb 9.5 L Hct 30.5 L MCV 81.6 MCH 25.4 L MCHC 31.1 L RDW 19.4 H Plt Count 258 MPV 9.7 Immature Gran % (Auto) 0.6 H Neut % (Auto) 78.1 H Lymph % (Auto) 9.5 L [place] % (Auto) 11.5 H Eos % (Auto) 0.0 Baso % (Auto) 0.3 Lymph # (Auto) 1.71 [place] # (Auto) 2.1 H Eos # (Auto) 0.0 Baso # (Auto) 0.1 Abs Immat Gran (auto) 0.11 H Absolute Neuts (auto) 14.1 H Absolute Nucleated RBC 0.000 Nucleated RBC % 0.0 Sodium 139 Potassium 4.0 Chloride 106 Carbon Dioxide 28 Anion Gap 5 BUN 25 H Creatinine 0.90 Estim Creat Clear Calc 77 Estimated GFR > 60 Glucose 103 Calcium 8.9
--- NOTE | 2024-05-12 07:50 | PM.DS ---
DS: Admitting Diagnosis Discharge Date Admitting Diagnosis Osteoarthritis right knee. DS: Discharge Diagnosis Discharge Diagnosis (1) Status post bilateral knee replacements: Code(s): Z96.653 - Presence of artificial knee joint, bilateral Status: Acute Assessment and Plan: Patient underwent right knee replacement for osteoarthritis after failed conservative treatment. He has done well postoperatively and is progressing well. He has had a previous left total knee arthroplasty. DS: Summary Hospital Course Hospital Course: Total knee arthroplasty on the right for osteoarthritis unresponsive to conservative treatment. He has done well postoperatively and I believe he can be dismissed home. He has full weight-bearing on his knee. And working on motion. Status at Discharge Functional status at discharge: uses cane/walker Time Spent with Patient Time attestation: Total time spent providing and/or coordinating discharge services: Exam Narrative: NVI Dressing intact Ambulates with a walker Eyes: General: appearance normal, both eyes and all related structures Neck: Neck: supple Resp: Effort & Inspection: normal respiratory effort Cardio: Rate: regular rate Rhythm: regular rhythm DS: Data Data Completed and Pending Labs on day of discharge: Labs from last 24 hours 05/12/24 05:32 WBC 18.0 H RBC 3.74 L Hgb 9.5 L Hct 30.5 L MCV 81.6 MCH 25.4 L MCHC 31.1 L RDW 19.4 H Plt Count 258 MPV 9.7 Immature Gran % (Auto) 0.6 H Neut % (Auto) 78.1 H Lymph % (Auto) 9.5 L [place] % (Auto) 11.5 H Eos % (Auto) 0.0 Baso % (Auto) 0.3 Lymph # (Auto) 1.71 [place] # (Auto) 2.1 H Eos # (Auto) 0.0 Baso # (Auto) 0.1 Abs Immat Gran (auto) 0.11 H Absolute Neuts (auto) 14.1 H Absolute Nucleated RBC 0.000 Nucleated RBC % 0.0 Sodium 139 Potassium 4.0 Chloride 106 Carbon Dioxide 28 Anion Gap 5 BUN 25 H Creatinine 0.90 Estim Creat Clear Calc 77 Estimated GFR > 60 Glucose 103 Calcium 8.9 Discharge Plan Discharge Patient Disposition: Home, Self-Care Discharge Instructions: Dr. Gabino López M.D [id number] [id number] POST-OPERATIVE DISCHARGE INSTRUCTIONS TOTAL KNEE ARTHROPLASTY 1. When resting, do not rest in the chair.When resting, lie on your back, with back flat on the couch or bed, with leg elevated above heart to minimize swelling. You may put a pillow under your head. . Significant swelling could indicate a blood clot and if this occurs call the office (or go to the ER) to have a venous ultrasound. Therefore, do not rest in a chair. 2. At least five times a day spend several minutes stretching your knee into flexion while sitting in the chair and also stretching your knee out straight The abilities to bend your knee fulling and straighten your knee fully are two most important knee functions to focus on during your recovery. 3. It is ok to sit in chair to eat, use the toilet and receive a guest and to do your stretching exercises, but, sitting in a chair will cause your leg to swell. Therefore, avoid additional time sitting in the chair. and don't rest in the chair. 4. Wound Care: Nursing will give you an additional Mepilex dressing at the time of discharge. Patient to remove the dressing and apply a new Mepilex dressing at home 7 days after surgery and leave the dressing on until seen in office. 5. May shower with a Mepilex dressing in place.The water will run off the dressing. 6. Unless you are told otherwise, you may put full weight on your operated leg. Use a walker for balance and practice walking as normally as you can, ideally for a few minutes every hour while you are awake. 7. I would advise against putting ice packs on your knee incision. Ice constricts blood flow which can impar healing of the knee incision. IMPORTANT: Remember not to sit in the chair for more than 30 minutes at a time. As a rule, during the first 14 days after surgery, only sit in the chair to work on the chair knee bending stretch exercise, for meals or for use of the restroom. Sitting in the chair promotes significant swelling in the knee and leg which will make your knee stiff and more painful and which simulates having a blood clot in the veins of the leg. If this type of significant diffuse swelling occurs, an ultrasound at the hospital will be necessary to rule out a blood clot. Be up walking around with the walker for a few minutes every hour while awake and then rest laying on your back on the couch or in bed with your leg elevated on cushions or pillows. Do not rest in the chair. Patient Language: [place] Stand Alone Forms: General Discharge Instructions Follow-up/Referrals: Gabino López MD [Physician] - Discharge Medications: New doxycycline hyclate 100 mg tablet 100 mg PO DAILY Qty: 10 0RF hydrocodone-acetaminophen 7.5-325 mg tablet 1 tablet PO Q4H PRN (Reason: pain) Qty: 40 0RF Xarelto 10 mg tablet 10 mg PO DAILY Qty: 10 0RF Rx Instructions: for 35 days Continued clopidogrel 75 mg tablet 75 mg PO DAILY metoprolol tartrate 50 mg tablet 50 mg PO BID lisinopril 40 mg tablet 40 mg PO DAILY ezetimibe 10 mg tablet 10 mg PO DAILY aspirin 81 mg capsule 81 mg PO DAILY paroxetine HCl [Paxil] 40 mg tablet 40 mg PO DAILY tamsulosin 0.4 mg capsule 0.4 mg PO DAILY Patient Comments: AT HS atorvastatin 40 mg tablet 40 mg PO HS cetirizine [Zyrtec] 10 mg Tablet 10 mg PO DAILY semaglutide (weight loss) 2.4 mg/0.75 mL Pen Injector 2.4 mg SUBCUT WEEKLY Patient Comments: TAKES ON FRIDAYS acetaminophen 500 mg Capsule 1,000 mg PO QID PRN (Reason: Pain) ibuprofen 200 mg capsule 400 mg PO ONCE PRN (Reason: pain)
[2024-05-12 08:33] VITALS: BP 105/68; PULSE 88; RESP 20; TEMP 36.6; O2SAT 98
[2024-05-12] MEDS: polyethylene glycoL 3350 17 GM POWD.PACK PO (09:20)
[2024-05-12 09:21] VITALS: PULSE 80
[2024-05-12] MEDS: lisinopriL 20 MG TABLET 40 MG PO (09:21)
[2024-05-12] MEDS: METOPROLOL TARTRATE 50 MG TAB PO (09:21)
[2024-05-12] MEDS: PARoxetine 20 MG TABLET 40 MG PO (09:21)
[2024-05-12] MEDS: SENNA/DOCUSATE SODIUM TABLET 2 TAB PO (09:22)
[2024-05-12] MEDS: LORATADINE 10 MG TABLET PO (09:22)
[2024-05-12] MEDS: CELECOXIB 200 MG CAPSULE PO (09:22)
[2024-05-12] MEDS: EZETIMIBE 10 MG TABLET PO (09:22)
--- OUTSIDE RECORDS SUMMARY | 2024-05-17 13:01 | XMS_ITS | Data Portability ---
Author Organization [facility] [employer], Main Office Address [address] [place] [address] Assessment No assessment recorded. Plan of Treatment Reminders Order Date Submit Date Provider Last Modified By Organization Details Last Modified Time Details Appointments None recorded . Lab CMP, serum or plasma 023 04/24/20 23 [facility], [address] , [place], [address], 3 17:17:21 lipid panel, serum 023 04/24/20 23 [facility], [address], [place], [address], 3 17:17:26 CBC w/ auto diff 023 04/24/20 23 [facility], [address], [place], [address], 3 15:22:24 T4, free, serum 023 04/24/20 23 [facility], [address] , [place], [address], 3 17:28:48 TSH, serum or plasma 023 04/24/20 23 [facility], [address], [place], [address], 3 17:45:40 CMP, serum or plasma 024 10/07/19 24 [facility], [address] , [place], [address], 4 17:50:36 lipid panel, serum 024 10/07/19 24 [email or web address] [facility], [address], [place], [address], 4 17:50:36 CBC w/ auto diff 024 10/07/19 24 [facility], [address], [place], [address], 4 16:12:48 CMP, serum or plasma 024 12/25/19 24 [facility], [address], [place], [address], 4 09:40:01 lipid panel, serum 024 12/25/19 [email or web address] [facility], [address], [place], [address], 4 17:00:01 CBC w/ auto diff 024 12/25/19 24 M[facility], [address], [place], [address], 4 03:07:23 PSA, serum or plasma 024 04/15/20 24 [facility], [address], [place], [address], 4 04:07:43 CBC w/ auto diff 024 04/15/20 24 [facility], [address], [place], [address], 4 08:50:58 CMP, serum or plasma 024 04/15/20 24 [facility], [address], [place], [address], 4 04:07:41 lipid panel, serum 024 04/15/20 24 MOOK [facility], [address], [place], [address], 4 04:07:42 TSH, serum or plasma 024 04/15/20 [facility], [address] , [place], [address], 4 04:07:42 T4, free, serum 024 04/15/20 [facility], [address], [place], [address], 4 04:07:42 Referral None recorded . Procedures None recorded . Surgeries None recorded . Imaging None recorded . Medication Orders None recorded . Patient TargetsNo targets recorded. Patient Instructions Encounter Date Encounter Id Patient Instructions Last Modified By Organization Details Last Modified Time 04/24/2023 [id number] Coronary artery disease, hypertension, hyperlipidemia, BPH and class three obesity. All clinically stable. Will check blood work consisting of CMP, lipid CBC and thyroid. Continue on current medications. Follow-up in four months. FDA recommendations of a influenza, RSV, COVID, pneumococcal immunizations strongly advised. Portions of the record may have been created with voice recognition software. Occasional wrong-word or ? [id number]? substitutions may have occurred due to the inherent limitations of voice recognition software. Read the chart carefully and recognize, using context, where substitutions have occurred. [email or web address] Not available 04/24/2023 14:38:55 08/28/2023 [id number] Coronary artery disease, hypertension, hyperlipidemia and obesity class three all clinically stable. Overall is doing well most recent blood work looked excellent. Is scheduled to see ENT for problems with chronic rhinorrhea which sounds more like seasonal allergies. Overall otherwise is doing well. Will continue on current medications follow-up in four months. Next Appointment: 4 Months Approximate Date: 12/26/2023 Portions of the record may have been created with voice recognition software. Occasional wrong-word or ? [id number]-[id number]-[id number]? substitutions may have occurred due to the inherent limitations of voice recognition software. Read the chart carefully and recognize, using context, where substitutions have occurred. [email or web address] Not available 08/28/2023 14:49:37 10/07/2023 [id number] Follow-up mercado ry artery disease, hypertension, hyperlipidemia, degenerative joint disease and obesity class two. Will check a CBC lipid and CMP. Will increase the lisinopril from 20 mg to 30 mg daily. Instructed drop by in the next 48 hours to recheck the blood pressure. Is otherwise clinically stable P. See no contraindication to the surgical intervention. Will have to stop his aspirin and Plavix before surgery. Preferably 5-7 days before surgery. Keep Appointment: Sat 01:30 PM [place] Portions of the record may have been created with voice recognition software. Occasional wrong-word or ? [id number]-[id number]? substitutions may have occurred due to the inherent limitations of voice recognition software. Read the chart carefully and recognize, using context, where substitutions have occurred. [email or web address] Not available 10/07/2023 14:32:42 12/25/2023 [id number] dementia rating scale-2* [email or web address] Not available 12/25/2023 14:53:55 alcohol misuse* Not available 12/25/2023 14:53:55 depression screening* [email or web address] Not available 12/25/2023 14:53:55 Timed Up and Go test (TUG)* Not available 12/25/2023 14:53:54 multi-dimensiona l health assessment questionnaire* Not available 12/25/2023 14:53:55 advance care planning: care instructions [email or web address] Not available 12/25/2023 14:53:55 advance directiv es: care instructions [email or web address] Not available 12/25/2023 14:53:55 [place] Advance Directives [email or web address] Not available 12/25/2023 14:53:55 Personalized [facility] Plan and Screening Recommendations Advance Directives - Do you have one? Advance Directives - Do we have your advance directive on file in your health record? Primary Prevention/Intervent ion (prevents or decreases the chance of common diseases from occurring) Smoking Risk: Non Smoker Alcohol Misuse Screening: Negative Weight: Appropriate [place] ht continue your current weight loss efforts try to lose 5% of your body weight try to lose 10% of your body weight Physical activity: Nutrition: Good Average Fall Risk (screened today): Low Vaccines Pneumococcal: Ordered Recommended today Recommended today, but you have declined No further needed Influenza: Chronic Disease Risks Stroke: Low Risk Intermediate Risk I have no recommendations Acti ve diagnosis, Continue current treatment plan Heart Attack: Low risk Intermediate Risk I have no recommendations Acti ve diagnosis, Continue current treatment plan Clogging of the Arteries: Low risk Intermediate Risk I have no recommendations Acti ve diagnosis, Continue current treatment plan Diabetes: Low Risk Intermediate Risk I have no recommendations Refe r to attached handout ? P re-diabetes: After Your Visit? Drastical ly limit sugar and products made with any type of flour (bread, pasta, cereal, cookies, crackers, etc.) Secondary Prevention/Intervent ion (detects treatable diseases before they may cause symptoms, disability, or ) Prostate Cancer Screening: Colon Cancer Screening: Colonoscopy Date Screening Last Performed: _2021___ Eye Disease Screening: Dementia Risk: Low I have no recommendations Depression Screening: Negative [email or web address] Not available 12/25/2023 14:49:00 Medicare wellnes s evaluation risk assessment stable. Follow-up for coronary artery disease, essential hypertension, hyperlipidemia, obesity class two and history of nasal polyps. Is tentatively scheduled for surgical intervention on his nasal polyps next week. See no contraindication. Has been seen by Cardiology recently been released for one year. No interval complaints of any exacerbation of any cardiovascular or pulmonary symptomatology. Will check a CBC, CMP and lipid panel. Continue on current Rx follow-up in four months Next Appointment: 4 Months Approximate Date: 04/23/2024 Portions of the record may have been created with voice recognition software. Occasional wrong-word or ? [id number]? substitutions may have occurred due to the inherent limitations of voice recognition software. Read the chart carefully and recognize, using context, where substitutions have occurred. [email or web address] Not available 12/25/2023 14:53:32 04/15/2024 [id number] Follow-up for coronary artery disease, hypertension, hyperlipidemia and obesity class two. Clinically stable. He has continued to lose weight but at a slower pace. This is more likely related to his intermittent surgical procedures which require him to come off the medication then restart at lower dosages in escalate up. Overall otherwise doing fine at this time. Will check blood work consisting of CBC, CMP, lipid, thyroid And PSA. Follow-up in four months. Follow Up: 4 Months Approximate Date: 08/13/2024 Portions of the record may have been created with voice recognition software. Occasional wrong-word or ? [id number]? substitutions may have occurred due to the inherent limitations of voice recognition software. Read the chart carefully and recognize, using context, where substitutions have occurred. Created: Roland Ojeda M.D. 04.15.2024 02:05 PM Not available 04/15/2024 15:05:39 Reason for Referral None Reported. Results Created Date Observation Date Name Description Value Unit Range Abnormal Flag Note LastModifiedBy Organization Detail LastModifiedTime 05/03/2005/03/2023 CBC/C OMPLE TE BLD COUNT W/DIF F white blood cells 8.4 x10'3 /uL 4.2-10 .8 Not Available [facility] (Lab) [address] [place], [address], 05/03/2023 15:22:23 05/03/20 23 05/03/2023 CBC/C OMPLE TE BLD COUNT W/DIF F red blood cells 4.56 x10'6 /uL 4.10-5 .80 Not Available [facility] (Lab) [address] [place], [address], 05/03/2023 15:22:23 05/03/20 23 05/03/2023 CBC/C OMPLE TE BLD COUNT W/DIF F hemoglobin 13.4 g/dL 13.2-1 7.0 Not Available [facility] (Lab) [address] [place], [address], 05/03/2023 15:22:23 05/03/20 23 05/03/2023 CBC/C OMPLE TE BLD COUNT W/DIF F hematocrit 41.9 % 39.3-5 0.0 Not Available [facility] (Lab) [address] [place], [address], 05/03/2023 15:22:23 05/03/20 23 05/03/2023 CBC/C OMPLE TE BLD COUNT W/DIF F mean red cell volume 91.9 fL 80.0-9 7.0 Not Available [facility] (Lab) [address] [place], [address], 05/03/2023 15:22:23 05/03/20 23 05/03/2023 CBC/C OMPLE TE BLD COUNT W/DIF F mean red cell hemoglobin 29.4 pg 27.0-3 3.0 Not Available [facility] (Lab) [address] [place], [address], 05/03/2023 15:22:23 05/03/20 23 05/03/2023 CBC/C OMPLE TE BLD COUNT W/DIF F mean RBC HGB concentratio n 32.0 g/dL 31.0-3 6.0 Not Available [facility] (Lab) [address] [place], [address], 05/03/2023 15:22:23 05/03/20 23 05/03/2023 CBC/C OMPLE TE BLD COUNT W/DIF F red cell distribution width 14.1 % 11.8-1 5.5 Not Available [facility] (Lab) [address] [place], [address], 05/03/2023 15:22:23 05/03/20 23 05/03/2023 CBC/C OMPLE TE BLD COUNT W/DIF F platelets 277 x10'3 /uL 150-40 0 Not Available [facility] (Lab) [address] [place], [address], 05/03/2023 15:22:23 05/03/20 23 05/03/2023 CBC/C OMPLE TE BLD COUNT W/DIF F mean platelet volume 10.3 fL 9.0-12 .4 Not Available [facility] (Lab) [address] [place], [address], 05/03/2023 15:22:23 05/03/20 23 05/03/2023 CBC/C OMPLE TE BLD COUNT W/DIF F neutrophils 66.6 % 39.0-7 2.0 Not Available [facility] (Lab) [address] [place], [address], 05/03/2023 15:22:23 05/03/20 23 05/03/2023 CBC/C OMPLE TE BLD COUNT W/DIF F lymphocytes 20.0 % 16.0-4 7.0 Not Available [facility] (Lab) [address] [place], [address], 05/03/2023 15:22:23 05/03/20 23 05/03/2023 CBC/C OMPLE TE BLD COUNT W/DIF F monocytes 7.0 % 5.0-12 .0 Not Available [facility] (Lab) [address] [place], [address], 05/03/2023 15:22:23 05/03/20 23 05/03/2023 CBC/C OMPLE TE BLD COUNT W/DIF F eosinophils 5.4 % 1.0-7. 0 Not Available [facility] (Lab) [address] [place], [address], 05/03/2023 15:22:23 05/03/20 23 05/03/2023 CBC/C OMPLE TE BLD COUNT W/DIF F basophils 0.8 % 0.0-2. 0 Not Available [facility] (Lab) [address] [place], [address], 05/03/2023 15:22:23 05/03/20 23 05/03/2023 CBC/C OMPLE TE BLD COUNT W/DIF F immature granulocytes 0.2 % 0.00-0 .50 Not Available [facility] (Lab) [address] [place], [address], 05/03/2023 15:22:23 05/03/20 23 05/03/2023 CBC/C OMPLE TE BLD COUNT W/DIF F neutrophils, absolute count 5.59 x10'3 /uL 1.5-8. 0 Not Available [facility] (Lab) [address] [place], [address], 05/03/2023 15:22:23 05/03/20 23 05/03/2023 CBC/C OMPLE TE BLD COUNT W/DIF F lymphocytes, absolute count 1.68 x10'3 /uL 1.07-3 .43 Not Available [facility] (Lab) [address] [place], [address], 05/03/2023 15:22:23 05/03/20 23 05/03/2023 CBC/C OMPLE TE BLD COUNT W/DIF F monocytes, absolute count 0.59 x10'3 /uL 0.29-0 .99 Not Available [facility] (Lab) [address] [place], [address], 05/03/2023 15:22:23 05/03/20 23 05/03/2023 CBC/C OMPLE TE BLD COUNT W/DIF F eosinophils, absolute count 0.45 x10'3 /uL 0.02-0 .53 Not Available [facility] (Lab) [address] [place], [address], 05/03/2023 15:22:23 05/03/20 23 05/03/2023 CBC/C OMPLE TE BLD COUNT W/DIF F basophils, absolute count 0.07 x10'3 /uL 0.01-0 .08 Not Available [facility] (Lab) [address] [place], [address], 05/03/2023 15:22:23 05/03/20 23 05/03/2023 CBC/C OMPLE TE BLD COUNT W/DIF F immature granulocytes ,absolute 0.02 x10'3 /uL 0.00-0 .05 Not Available [facility] (Lab) [address] [place], [address], 05/03/2023 15:22:23 05/03/20 23 05/03/2023 CBC/C OMPLE TE BLD COUNT W/DIF F nucleated red blood cells 0.0 % -0 Not Available [facility] (Lab) [address] [place], [address], 05/03/2023 15:22:23 05/03/20 23 05/03/2023 CBC/C OMPLE TE BLD COUNT W/DIF F NRBC# 0.00 x10'3 /uL Not Available [facility] (Lab) [address] [place], [address], 05/03/2023 15:22:23 05/03/20 23 05/03/2023 COMPR EHENS JENN METAB OLIC PANEL sodium 142 mmol/ L 137-14 5 Not Available [facility] (Lab) [address] [place], [address], 05/03/2023 17:17:21 05/03/20 23 05/03/2023 COMPR EHENS JENN METAB OLIC PANEL potassium 4.5 mmol/ L 3.5-5. 1 Not Available [facility] (Lab) [address] [place], [address], 05/03/2023 17:17:21 05/03/20 23 05/03/2023 COMPR EHENS JENN METAB OLIC PANEL chloride 107 mmol/ L 98-107 Not Available [facility] (Lab) [address] [place], [address], 05/03/2023 17:17:21 05/03/20 23 05/03/2023 COMPR EHENS JENN METAB OLIC PANEL carbon dioxide 27 mmol/ L 22-30 Not Available [facility] (Lab) [address] [place], [address], 05/03/2023 17:17:21 05/03/20 23 05/03/2023 COMPR EHENS JENN [employer]AB OLIC PANEL anion gap 12.5 mmol/ L 14-22 low Not Available [facility] (Lab) [address] [place], [address], 05/03/2023 17:17:21 05/03/20 23 05/03/2023 COMPR EHENS JENN METAB OLIC PANEL glucose 98 mg/dL 70-99 Not Available [facility] (Lab) [address] [place], [address], 05/03/2023 17:17:21 05/03/20 23 05/03/2023 COMPR EHENS JENN METAB OLIC PANEL BUN 20 mg/dL 8-19 high Not Available [facility] (Lab) [address] [place], [address], 05/03/2023 17:17:21 05/03/20 23 05/03/2023 COMPR EHENS JENN METAB OLIC PANEL creatinine 0.93 mg/dL 0.66-1 .25 Not Available [facility] (Lab) [address] [place], [address], 05/03/2023 17:17:21 05/03/20 23 05/03/2023 COMPR EHENS JENN METAB OLIC PANEL GFR >60 Refer ence Range : [place] ge GFR Healt hy Adult : >60 mL/mi n/1.7 3 m2 Chron ic Kidne y Disea se: 15-60 mL/mi n/1.7 3 m2 Kidne y Failu re: <15/m L/min /1.73 m2 www.n iddk. nih.g ov The MDRD study equat ion has not been valid ated in child neeta <18 years of age; pregn ant women ; the elder ly >85 years of age; or in some racia l or ethni c subgr oups, such as Hispa nics. Outsi de the valid ated patricio eters , estim ated GFR is less accur ate, requi ring clini surya judgm ent on a case- by-ca se basis . Clini surya inter preta tion for other races and ages must be made by the clini tyson. The MDRD study equat ion has not been valid ated for the evalu ation of serum creat inine relat ed to nutri nick l statu s or medic ation usage . For perso ns <18 years of age, a pedia tric GFR calcu latnehemiah is avail able on the [facility] websi te: https ://benji ely.o rg/pr ofess ional s/kdo qi/gf r_cal culat or Not Available [facility] (Lab) [address] [place], [address], 05/03/2023 17:17:21 05/03/20 23 05/03/2023 COMPR EHENS JENN METAB OLIC PANEL alkaline phosphatase 94 U/L 38-126 Not Available [facility] (Lab) [address] [place], [address], 05/03/2023 17:17:21 05/03/20 23 05/03/2023 COMPR EHENS JENN METAB OLIC PANEL alanine aminotransfe rase 17 U/L 0-50 Not Available [facility] (Lab) [address] [place], [address], 05/03/2023 17:17:21 05/03/20 23 05/03/2023 COMPR EHENS JENN METAB OLIC PANEL aspartate aminotransfe rase 21 U/L 15-46 Not Available [facility] (Lab) [address] [place], [address], 05/03/2023 17:17:21 05/03/20 23 05/03/2023 COMPR EHENS JENN METAB OLIC PANEL bilirubin, total 0.60 mg/dL 0.20-1 .30 Not Available [facility] (Lab) [address] [place], [address], 05/03/2023 17:17:21 05/03/20 23 05/03/2023 COMPR EHENS JENN METAB OLIC PANEL calcium 10.0 mg/dL 8.4-10 .2 Not Available [facility] (Lab) [address] [place], [address], 05/03/2023 17:17:21 05/03/20 23 05/03/2023 COMPR EHENS JENN METAB OLIC PANEL total protein 7.2 g/dL 6.3-8. 2 Not Available [facility] (Lab) [address] [place], [address], 05/03/2023 17:17:21 05/03/20 23 05/03/2023 COMPR EHENS JENN METAB OLIC PANEL albumin 4.2 g/dL 3.0-4. 4 Not Available [facility] (Lab) [address] [place], [address], 05/03/2023 17:17:21 05/03/20 23 05/03/2023 COMPR EHENS JENN METAB OLIC PANEL globulin 3.0 g/dL 2.6-4. 2 Not Available [facility] (Lab) [address] [place], [address], 05/03/2023 17:17:21 05/03/20 23 05/03/2023 COMPR EHENS JENN METAB OLIC PANEL A/G ratio 1.4 ratio 1.0-2. 0 Not Available [facility] (Lab) [address] [place], [address], 05/03/2023 17:17:21 05/03/20 23 05/03/2023 LIPID PANEL cholesterol 131 mg/dL 140-19 9 low NIH NGA NSUS RECOM MENDA TION FOR MINERVA STERO L: ADULT CHILD LOW RISK: <200 <170 BORDE RLINE : <200- 239 ----- HIGH RISK: >240 >200 Not Available [facility] (Lab) [address] [place], [address], 05/03/2023 17:17:26 05/03/20 23 05/03/2023 LIPID PANEL triglyceride s 86 mg/dL 0-150 NIH NGA NSUS REPOR T RECOM MENDA TION FOR TRIGL YCERI PAPA: ADULT CHILD LOW RISK: <150 ----- BODER LINE: 150-1 99 ----- HIGH RISK: >200 ----- Not Available [facility] (Lab) [address] [place], [address], 05/03/2023 17:17:26 05/03/20 23 05/03/2023 LIPID PANEL HDL cholesterol 45 mg/dL 40- Not Available [facility] (Lab) [address] [place], [address], 05/03/2023 17:17:26 05/03/20 23 05/03/2023 LIPID PANEL LDL cholesterol, calculated 69 mg/dL 0-130 NIH NGA NSUS REPOR T RECOM MENDA TIONS FOR LDL: ADULT CHILD LOW RISK <130 <110 (OPTI MAL LDL) <100 ----- MIMI RLINE : 130-1 59 ----- HIGH RISK: >160 >130 A TRIGL YCERI DE RESUL T >400 INVAL IDATE S THE CALCU LATIO N FOR LDL FRACT IONAT ION - THE LDL RESUL T WILL NOT BE REPOR KATELIN. Not Available [facility] (Lab) [address] [place], [address], 05/03/2023 17:17:26 05/03/20 23 05/03/2023 T4 FREE free T4 1.16 NG/dL 0.78-2 .19 Not Available [facility] (Lab) [address] [place], [address], 05/03/2023 17:28:48 05/03/20 23 05/03/2023 TSH thyroid-stim ulating hormone 0.248 uIU/m L 0.465- 4.680 low Not Available [facility] (Lab) [address] [place], [address], 05/03/2023 17:45:40 10/23/19 24 10/23/2023 XR, knee No observ ation record ed. [address], [place], [address], 10/23/2023 15:50:55 05/11/19 25 05/11/2024 XR, knee No observ ation record ed. [address], [place], [address], 05/11/2024 14:44:23 Result Notes None recorded. Problems Name Problem SNOMED Code Status Onset Date Resolution Date Notes Provider Name and Address Organization Details Recorded Time Benign essential hypertensi on 8906108 Active Not Available [facility] 4 06:40:37 Acute sinusitis 52709259 Active 2021 Not Available [facility] 4 06:40:37 Morbid obesity 273214949 Active 2021 Not Available [facility] 4 06:40:37 Osteoarthr itis of knee 302996712 Active 2018 Not Available [facility] 4 06:40:37 Benign prostatic hyperplasi a 042254239 Active 2016 Not Available [facility] 4 06:40:37 Right upper quadrant pain 988663617 Active 2016 Not Available [facility] 4 06:40:37 Depressive disorder 30402592 Active Not Available [facility] 4 06:40:37 History of polyp of colon 446410687 Active 2019 Not Available [facility] 4 06:40:37 Hyperlipid emia 18771011 Active 2021 Not Available [facility] 4 06:40:37 Coronary arterioscl erosis 28090523 Active 2022 Not Available [facility] 4 06:40:37 Disorder of prostate 47393308 Active 2022 Not Available [facility] 4 06:40:37 Allergic rhinitis 42109100 Active 2023 Roland Ojeda MD [address] [place] [address], [facility] [address], [place], [address] , [facility] [employer] [facility] 4 16:54:54 Obese class II 2057627296895 05 Active 2023 Roland Ojeda MD [address] [facility], [facility] [address], [place], [address] , [facility] [employer] [facility] 4 14:27:20 Polyp of nasal cavity 790104562 Active 2023 Roland Ojeda MD [address], [facility] [address], [place], [address] , [facility] [employer] [facility] [employer] [facility] 4 14:49:11 Problem Notes None recorded. Procedures Surgical History Date Name Laterality Status Provider Name and Address Organization Details Recorded Time 12/25/19 Medicare Wellness CPT Code, subsequent completed Chula Christie RN [facility] 12/25/2023 14:41:02 12/25/19 24 Advanced Care Planning completed Chula Christie RN [facility] 12/25/2023 14:46:33 12/20/19 Medicare Wellness CPT Code, Initial completed Chula Christie RN [facility] 12/19/2022 14:39:06 12/17/19 14 colonoscopy completed Not Available [facility] 07/05/19 14:45:15 Imaging Results Imaging Date Name Status LastModified by Organiz ation Details LastModified Time 10/23/2023 XR, knee completed [email or web address] [facility] [address] [facility] [address] [place] [address], [address], 10/23/2023 15:50:55 05/11/2024 XR, knee completed [email or web address] [facility] [address], [place], [address], 05/11/2024 14:44:23 Procedure Notes None recorded. Medical Equipment None Reported. Allergies Allergen ID Allergen Name Allergen Category Reaction Reaction Severity Criticality Documentation Date Start Date Code Code System Note Provider Name and Address Organization Details Recorded Time 77817 Actos medicatio n rash Not available Not available 07/04/2022 79789 2 RxNorm Not Available [facility] 14:49:50 Medications Name Sig Start Date Stop Date Status Note LastModified by Organization Details LastModified Time amoxicillin 500 mg capsule Take 1 capsule 3 times a day by oral route for 10 days. 09/20 completed Not Available Not Available Not Available atorvastati n 40 mg tablet TAKE 1 TABLET BY MOUTH EVERY DAY AT NIGHT active Not Available Not Available No t Available atorvastati n 20 mg tablet TAKE 1 TABLET BY MOUTH EVERY DAY active Not Available Not Available No t Available atorvastati n 10 mg tablet Take 1 tablet every day by oral route. 04/24 completed Not Available Not Available Not Available lisinopril 20 mg-hydrochl orothiazide 12.5 mg tablet TAKE 1 TABLET BY MOUTH ONCE DAILY 04/17 completed Not Available Not Available Not Available azithromyci n 250 mg tablet TAKE 2 TABLETS BY MOUTH TODAY, THEN TAKE 1 TABLET DAILY FOR 4 DAYS 04/04 completed Not Available Not Available Not Available benzonatate 200 mg capsule Take 1 capsule 3 times a day by oral route. active Not Available Not Available No t Available hydrocodone 5 mg-acetamin ophen 325 mg tablet TAKE 1 TABLET BY MOUTH EVERY 4 HOURS NEEDED active Not Available Not Available No t Available lisinopril 20 mg tablet Take 1 tablet every day by oral route. 12/19 completed Not Available Not Available Not Available prednisone 20 mg tablet 40MG X 5 DAYS THEN 20MG X 5 DAYS ORALLY active Not Available Not Available No t Available methylpredn isolone 4 mg tablet TAKE 1 TABLET BY MOUTH TWICE A DAY 04/24 completed Not Available Not Available Not Available Flonase 50 mcg/actuati on nasal spray,suspe nsion [place] 2 sprays every day by intranasa l route. active Not Available Not Available No t Available amlodipine 2.5 mg tablet TAKE 1 TABLET BY MOUTH EVERY DAY active Not Available Not Available No t Available Zyrtec 10 mg tablet Take 1 tablet every day by oral route. active Not Available Not Available No t Available clopidogrel 75 mg tablet TAKE 1 TABLET BY MOUTH EVERY DAY active Not Available Not Available No t Available sulfamethox azole 800 mg-trimetho prim 160 mg tablet Take 1 tablet every 12 hours by oral route. 03/27 completed Not Available Not Available Not Available Tessalon Perles 100 mg capsule Take 1 capsule 3 times a day by oral route. active Not Available Not Available No t Available tamsulosin 0.4 mg capsule TAKE 1 CAPSULE BY MOUTH EVERYDAY AT BEDTIME active Not Available Not Available No t Available Kenalog 10 mg/mL suspension for injection In office injection administe red by the provider 03/14 completed NDC: 0003- 0494- 20 Not Available Not Available Not Available hydrocodone 7.5 mg-acetamin ophen 325 mg tablet TAKE 1 TABLET BY MOUTH EVERY 4 HOURS NEEDED FOR PAIN active Not Available Not Available No t Available metoprolol tartrate 50 mg tablet TAKE 1 TABLET BY MOUTH TWICE A DAY active Not Available Not Available No t Available methylpredn isolone 4 mg tablets in a dose pack TAKE 6 TABLETS ON DAY 1 DIRECTED ON PACKAGE AND DECREASE BY 1 TAB EACH DAY FOR A TOTAL OF 6 DAYS 04/15 completed Not Available Not Available Not Available paroxetine 40 mg tablet TAKE 1 TABLET BY MOUTH EVERY DAY 2023 active Not Available Not Available Not Avai lable lisinopril 40 mg tablet TAKE 1 TABLET BY MOUTH EVERY DAY active Not Available Not Available No t Available doxycycline hyclate 100 mg tablet TAKE 1 TABLET BY MOUTH EVERY DAY 04/15 completed Not Available Not Available Not Available amoxicillin 875 mg-potassiu m clavulanate 125 mg tablet TAKE 1 TABLET BY MOUTH EVERY 12 HOURS FOR 5 DAYS 04/15 completed Not Available Not Available Not Available ezetimibe 10 mg tablet TAKE 1 TABLET BY MOUTH EVERY DAY active Not Available Not Available No t Available sildenafil (pulmonary hypertensio n) 20 mg tablet TAKE 3 TABLETS (60 MG) BY MOUTH ONCE DAILY NEEDED 1 HOUR BEFORE SEX (MAX 3 TABLETS/D AY) active Not Available Not Available No t Available Zyrte 04/04 completed Not Available Not Available Not Available lidocaine (PF) 10 mg/mL (1 %) injection solution In office injection administe red by the provider 03/14 completed NDC: 0409- 4276- 17 Not Available Not Available Not Available Golytely 236 gram-22.74 gram-6.74 gram-5.86 gram oral solution DIRECTED 09/06 completed Not Available Not Available Not Available lidocaine 2 % mucosal jelly in applicator Take by mucous route. 03/27 completed Not Available Not Available Not Available coenzyme Q10 400 mg capsule Take 1 capsule every day by oral route. active Not Available Not Available No t Available Flonase Allergy Relief two sprays each nostril qhs 02/10 completed Not Available Not Available Not Available Fluzone High-Dose Quad 2020-21 (PF) 240 mcg/0.7 mL IM syringe ADM 0.7ML IM UTD 09/16 completed Not Available Not Available Not Available Wegovy 0.25 mg/0.5 mL subcutaneou s pen injector INJECT 0.25 MG BY SUBCUTANE OUS ROUTE ONCE WEEKLY ON THE SAME DAY OF EACH WEEK FOR FOUR WEEKS 12/19 completed Not Available Not Available Not Available semaglutide 2 mg/dose (8 mg/3 mL) subcutaneou s pen injector INJECT 2 MG BY SUBCUTANE OUS ROUTE ONCE WEEKLY ON THE SAME DAY OF EACHWEEK active Not Available Not Available No t Available Vitals Date Recorded Body height Body mass index (BMI) Body weight Heart rate Body temperature Oxygen saturation Oxygen saturation in Arterial blood by Pulse oximetry Systolic blood pressure Diastolic blood pressure Provider Name and Address Organization Details Last Updated DateTime 3 167.64 cm 41.4 kg/m2 445779. 44 g 102 /min 97 [degF] 96 % 96 % 122 mm[Hg] 80 mm[Hg] [facility] 3 14:31:12 Date Recorded Body height Body mass index (BMI) Body weight Heart rate Body temperature Oxygen saturation Oxygen saturation in Arterial blood by Pulse oximetry Systolic blood pressure Diastolic blood pressure Provider Name and Address Organization Details Last Updated DateTime 4 167.64 cm 40.2 kg/m2 297597. 5 g 81 /min 97 [degF] 99 % 99 % 122 mm[Hg] 84 mm[Hg] [facility] 4 14:41:50 Date Recorded Body height Body mass index (BMI) Body weight Heart rate Body temperature Oxygen saturation Oxygen saturation in Arterial blood by Pulse oximetry Systolic blood pressure Diastolic blood pressure Provider Name and Address Organization Details Last Updated DateTime 4 167.64 cm 39.1 kg/m2 052520. 35 g 82 /min 97.7 [degF] 95 % 95 % 124 mm[Hg] 88 mm[Hg] Page MeloJAVIER [place] [employer] [facility] [employer] 4 14:19:59 Date Recorded Body height Body mass index (BMI) Body weight Heart rate Body temperature Oxygen saturation Oxygen saturation in Arterial blood by Pulse oximetry Systolic blood pressure Diastolic blood pressure Provider Name and Address Organization Details Last Updated DateTime 4 167.64 cm 39.1 kg/m2 045687. 15 g 78 /min 97.8 [degF] 98 % 98 % 134 mm[Hg] 86 mm[Hg] Page MeloJAVIER [place] [facility] [employer] [facility] 4 14:33:49 Date Recorded Body height Body mass index (BMI) Body weight Heart rate Body temperature Oxygen saturation Oxygen saturation in Arterial blood by Pulse oximetry Provider Name and Address Organization Details Last Updated DateTime 4 167.64 cm 39.1 kg/m2 587219. 35 g 93 /min 97 [degF] 97 % 97 % Page Melo J[place] [facility] [employer] [facility] 4 14:51:44 Date Recorded Systolic blood pressure Diastolic blood pressure Provider Name and Address Organization Details Last Updated DateTime 04/15/2024 140 mm[Hg] 88 mm[Hg] Roland Ojeda MD [address] [place] [address], [id number], [place] [employer] [employer] 04/15/2024 15:00:41 Social History Question Answer Notes LastModified by Organization Details LastModified Time Tobacco Smoking Status Former Smoker Not Available [facility] 07/04/2022 14:44:58 Do You Have An Advance Directive? No Info Given Information not available 12/25/2023 What Is Your Level Of Alcohol Consumption? Occasional [email or web address].030 [id number] Information not available 07/04/2022 Are You Blind Or Do You Have Difficulty Seeing? No MIGRATION.030 [id number] Information not available 07/04/2022 What Is Your Level Of Caffeine Consumption? Occasional [email or web address].030 [id number] Information not available 07/04/2022 Are You Deaf Or Do You Have Serious Difficulty Hearing? No MIGRATION.030 [id number] Information not available 07/04/2022 What Type Of Diet Are You Following? REGULAR MIGRATION.030 [id number] Information not available 07/04/2022 Have There Been Any Changes To Your Family Or Social Situation? No [email or web address] Information not available 12/19/2022 What Is The Fluoride Status Of Your Home? Unknown Information not available 12/19/2022 When Did You Quit Smoking? 16+yearssincelastci giovanni MIGRATION.0301 [id number] Information not available 07/04/2022 Where Do You Live? SingleLevelHouse [email or web address] Information not available 12/19/2022 Are You Able To Care For Yourself? Yes [email or web address] Information not available 12/19/2022 Are You Blind Or Do Yo Have Difficulty Seeing? No Information not available 12/19/2022 Are You Deaf Or Do You Have Serious Difficulty Hearing? Yes Hearing Aids [email or web address] Information not available 12/25/2023 Live Alone Of With Others? With Others [email or web address] Information not available 12/19/2022 Do You Have A Medical Power Of Hot Dog Vender? No [email or web address] Information not available 12/19/2022 What Was The Date Of Your Most Recent Tobacco Screening? 12/25/2023 [email or web address] Information not available 12/25/2023 Do You Have Any Pets? No Information not available 12/19/2022 What Is Your Relationship Status? MIGRATION.0301 [id number] Information not available 07/04/2022 Do You Use Your Seat Belt Or Car Seat Routinely? Yes [email or web address] Information not available 12/19/2022 Do You Have Smoke And Carbon Monoxide Detectors In Your Home? Yes [email or web address] Information not available 12/19/2022 Are You Passively Exposed To Smoke? No [email or web address] Information not available 12/19/2022 Are There Any Smokers In Your House? No [email or web address] Information not available 12/19/2022 Have You Recently Traveled Abroad? No MIGRATION.0301 [id number] Information not available 07/04/2022 Do You Or Have You Ever Used Any Other Forms Of Tobacco Or Nicotine? No MIGRATION.0301 [id number] Information not available 07/04/2022 Sex: Unknown Functional Status Question Answer Note LastModified by Organizat ion Details LastModified Time Do you have difficulty walking or climbing stairs? No MIGRATION.[id number] Information not available 07/04/2022 Do you have transportation difficulties? No Information not available 12/19/2022 Are you able to walk? YESASSIST sometimes a cane, recent knee surgery [email or web address] Information not available 12/25/2023 Do you have difficulty doing errands alone? No MIGRATION.65246 [id number] Information not available 07/04/2022 Are you able to care for yourself? Yes MIGRATION.20199 03342 Information not available 07/04/2022 Do you have difficulty dressing or bathing? No MIGRATION.76557 21566 Information not available 07/04/2022 What is your exercise level? Occasional [email or web address] Information not available 12/19/2022 Mental Status Question Answer Note LastModified by Organizat ion Details LastModified Time Do you have difficulty concentrating, remembering or making decisions? No MIGRATION.[id number] Information not available 07/04/2022 Family History Relationship Description Onset Age of this Age Resolved Age Notes LastModified by Organization Details LastModified Time Father Heart disease [id number].067 [id number] Not available 07/04/2022 14:45:15 Father Family history of stroke MIGRATION.682 [id number] Not available 07/04/2022 14:45:15 Father History of hypertension MIGRATION.931 [id number] Not available 07/04/2022 14:45:15 Brother Family history of malignant neoplasm MIGRATION.983 [id number] Not available 07/04/2022 14:45:15 Notes:Mother at 90 from arteriosclerotic heart disease and hx of pacemaker. Father 84 from Type II Diabetes, arteriosclerotic heart disease and CVA One sister who CTD Four brothers one of testicular cancer and one currently stage 4 prostate cancer. Medical History Condition Response NERVE DISEASE N BLINDNESS N RHEUMATIC FEVER N KIDNEY STONES N BLADDER PROBLEMS N MRSA N OTHER # 1 N POLIO N LUNG DISEASE/DISORDER N HISTORY OF DRUG ABUSE N RADIATION / CHEMOTHERAPY N COPD N Other # 2 N BLOOD DISEASES N EAR OR HEARING PROBLEMS N MUMPS N SHINGLES N DEPRESSION (INCLUDING POST ) Y BOWEL PROBLEMS N STROKE/TIA N ULCERS N BENIGN PROSTATIC HYPERPLASIA N MEASLES N HYPOTENSION N MYOCARDIAL INFARCTION N OBESITY N GERD/NAUSEA N ANEURYSM N URINARY/BLADDER/KIDNEY PROBLEMS N CORONARY ARTERY DISEASE (CAD) N ADDICTION CONCERNS N Impotence N ENDOMETRIOSIS N USE OF BLOOD THINNERS N SKIN PROBLEMS N GASTROINTESTINAL DISORDER N PERIPHERAL VASCULAR DISEASE N MUSCLE,JOINT OR BONE PROBLEMS N GASTROINTESTINAL BLEEDING N BLOOD CLOTS N ASTHMA N CATARACTS N ERECTILE DYSFUNCTION N VARICOSITIES N GI PROBLEMS N Low Testosterone N INFERTILITY N AIDS/HIV N CHEMOTHERAPY / RADIATION N LIVER DISEASE N MALE HYPOGONADISM N HYPERTENSION Y Deficiency N TOURETTE'S N ANXIETY DISORDER N BLOOD TRANSFUSION N ANEMIA/BLOOD DISORDER N CHRONIC EAR INFECTIONS N BRONCHITIS N TUBERCULOSIS N GLAUCOMA N FOOT PROBLEM N DIVERTICULITIS N SLEEP APNEA N CHICKENPOX N INFECTIOUS DISEASE N PROSTATE N HEART ARRHYTHMIA N INSOMNIA N HIGH CHOLESTEROL / HYPERLIPIDEMIA N EYE PROBLEMS N HYPERTHYROIDISM N EDEMA N CHRONIC PAIN SYNDROME N HYPOTHYROIDISM N CAROTID BLOCKAGE N CONSTIPATION N BACK / NECK PROBLEMS N HAVE YOU BEEN HOSPITALIZED OR SEEN IN [facility] IN THE PAST YEAR ? N ATHEROSCLEROSIS N BREAST PROBLEMS N DIALYSIS N ECZEMA N OSTEOPOROSIS N ARTHRITIS N NO SIGNIFICANT PAST MEDICAL HISTORY N APPENDICITIS N DIABETES, TYPE N BAD TEETH N ENT N HEARTBURN / REFLUX N AUTISM SPECTRUM DISORDER (ASD) N HEPATITIS / LIVER DISEASE N GOUT N SLEEP DISORDER N ALZHEIMER'S DISEASE N Brain Problems N DEMENTIA N HERPES N SEIZURES/EPILEPSY N HEADACHES/MIGRAINES N VASCULAR DISEASE N PACEMAKER N Blood Disorder N DIZZINESS N HEART DISEASE/HEART PROBLEMS N KIDNEY DISEASE N MULTIPLE SCLEROSIS N CANCER: SPECIFY N CARDIAC ARRHYTHMIA N ATRIAL FIBRILLATION N Gall Stones N PULMONARY EMBOLISM N AUTOIMMUNE DISEASE N Immunizations Vaccine Type Date Status Note Provider Nam e and Address Organization Details Recorded Time SARS-COV-2 (COVID-19) vaccine, UNSPECIFIED 3 completed Not Available [facility] 05/29/2023 06:40:38 influenza, unspecified formulation 3 completed Not Available [facility] 05/29/2023 06:40:38 Respiratory syncytial virus (RSV) MAB, unspecified 3 completed Not Available [facility] 05/29/2023 06:40:38 Influenza, adjuvanted, trivalent, PF 9 completed Not Available [facility] 05/29/2023 06:40:38 Influenza, split virus, quadrivalent, preservative 2 completed Not Available [facility] 05/29/2023 06:40:38 COVID-19, mRNA, LNP-S, PF, 30 mcg/0.3 mL dose 2 completed Not Available [facility] 05/29/2023 06:40:38 COVID-19, mRNA, LNP-S, PF, 30 mcg/0.3 mL dose 2 completed Not Available [facility] 05/29/2023 06:40:38 Influenza, split virus, trivalent, preservative 1 completed Not Available [facility] 05/29/2023 06:40:38 SARS-COV-2 (COVID-19) vaccine, UNSPECIFIED 1 completed Not Available [facility] 05/29/2023 06:40:38 SARS-COV-2 (COVID-19) vaccine, UNSPECIFIED 1 completed Not Available [facility] 05/29/2023 06:40:38 Tdap 2 completed Not Available [facility] 05/29/2023 06:40:38 pneumococcal polysaccharide PPV23 1 completed Not Available [facility] 05/29/2023 06:40:38 Influenza, MDCK, quadrivalent, PF 8 completed Not Available [facility] 05/29/2023 06:40:38 Pneumococcal conjugate PCV 13 0 completed Not Available [facility] 05/29/2023 06:40:38 Past Encounters Encounter ID Performer Location Encounter Start Date Encounter Closed Date Diagnosis/Indication Diagnosis SNOMED-CT Code Diagnosis ICD10 Code Diagnosis Note [id number] [facility] Marta galicia [address] [facility] [place] [address] 09/16/2020 00:00:00 09/16/2020 16:51:09 [id number] [facility] [place] [address] [place] [address] 09/22/2020 00:00:00 09/22/2020 13:25:58 [id number] [facility] [address], [address] [place] [address] 12/08/2020 00:00:00 12/08/2020 13:18:31 [id number] [facility] [place] [address] [place] [address], [address] [place] [address] 2020 00:00:00 12/22/2020 09:01:34 [id number] [facility] [address] [facility] [address] [address] 03/27/2021 00:00:00 03/27/2021 15:15:25 [id number] [facility] [address] [address] 09/27/2021 00:00:00 09/27/2021 15:04:31 [id number] _ATHENA_M IGRATION_ DEFAULT_1 _1 , 10/18/2021 00:00:00 10/18/2021 13:10:28 [id number] [facility] [address] [address] 04/04/2022 00:00:00 04/04/2022 14:43:40 [id number] Roland Ojeda MD [facility] [address] [address] 09/06/2022 11:11:03 09/06/2022 11:55:00 Coronary arteriosclerosis 84844441 I25.10 Benign ess ential hypertension 2846243 I10 Hyperlipidemia 37355434 E78.5 Obese class III 36145653 5 E66.01 [id number] Roland Ojeda MD [facility] [address] [address] 12/19/2022 14:24:13 12/19/2022 14:53:38 Adult health examination 778273659 Z00.00 Screening for disorder 245728546 Z13.9 Coronary arteriosclerosis 82728783 I25.10 Benign ess ential hypertension 5451744 I10 Hyperlipidemia 98649631 E78.5 Morbid obesity 417998388 E66.01 Disorder of prostate 302 03589 N42.9 [id number] Roland Ojeda MD [facility] [address] [address] 04/24/2023 14:28:06 04/24/2023 14:44:13 Coronary arteriosclerosis 18153928 I25.10 Benign ess ential hypertension 8046274 I10 Hyperlipidemia 70499598 E78.5 Disorder of prostate 302 30072 N42.9 [id number] Roland Ojeda MD [facility] [place] [address] [address] 08/28/2023 14:24:49 08/28/2023 14:53:47 Coronary arteriosclerosis 20421727 I25.10 Benign ess ential hypertension 1296015 I10 Hyperlipidemia 52911108 E78.5 Obese class III 56673143 5 E66.01 [id number] Roland Ojeda MD [facility] [place] [address] [address] 10/07/2023 14:14:44 10/07/2023 14:35:15 Coronary arteriosclerosis 28458393 I25.10 Benign ess ential hypertension 1714007 I10 Hyperlipidemia 10266127 E78.5 Obese class II 487960878 1 23483 E66.9 [id number] Roland Ojeda MD [facility] [place] [address] [address] 12/25/2023 14:26:52 12/25/2023 14:56:26 Adult health examination 502260752 Z00.00 Screening for disorder 020969023 Z13.9 Coronary arteriosclerosis 26062590 I25.10 Benign ess ential hypertension 9693346 I10 Hyperlipidemia 39019245 E78.5 Obese class II 552131279 1 64540 E66.9 Polyp of nasal cavity 73 0793485 J33.0 [id number] Roland Ojeda MD [facility] [place] [address] [address] 04/15/2024 14:46:09 04/15/2024 15:14:48 Coronary arteriosclerosis 26643926 I25.10 Benign ess ential hypertension 4393857 I10 Hyperlipidemia 18603740 E78.5 Obese class II 935199815 1 84785 E66.9 Disorder of prostate 302 92093 N42.9 Health Concerns Section Related Observation LastModified by Organization Detai ls LastModified Time None Recorded Concern Status LastModified by Organization Details LastModified Time None Recorded Advance Directives Directive N: Info given Payers Encounter Date Sequence Insurance Name Policy Number Policy Kern Covered Member ID Kern Member ID Guarantor Name 04/24/2023 1 [place] Eddi A Piper [id number] Eddi A Piper 04/24/2023 2 [employer] (MEDICARE SUPPLEMENT) Eddi A Piper [id number] Eddi A Piper 08/28/2023 1 [place] Eddi A Piper [id number] Eddi A Piper 08/28/2023 2 [employer] (MEDICARE SUPPLEMENT) Eddi A Piper [id number] Eddi A Piper 10/07/2023 1 [place] Eddi A Piper [id number] Eddi A Piper 10/07/2023 2 [employer] (MEDICARE SUPPLEMENT) Eddi A Piper [id number] Eddi A Piper 12/25/2023 1 [place] Eddi A Piper [id number] Eddi A Piper 12/25/2023 2 [employer] (MEDICARE SUPPLEMENT) Eddi A Piper [id number] Eddi A Piper 04/15/2024 1 [place] Eddi A Piper [id number] Eddi A Piper 04/15/2024 2 [employer] (MEDICARE SUPPLEMENT) Eddi A Piper [id number] Eddi A Piper Notes Date Note Type Note Provider Name and Address Organization Details Recorded Time 04/24/2023 text/html Patient Name: Rhoda freeman LashondaDate Of Service: Saturday ( 04.24.2023 ): 1955 Age: 67 There has been approximately a 20.5 lb weight loss since 12/19/2022. This represents approximately a 7.4% change in weight. Weight change attributable to lifestyle changes. Vital Signs:Blood Pressure: Sitting Rt. Arm 122/80Pulse: Sitting 100 /min and RegularRespiratory Rate: 12Height 66 in or 1.7 mWeight 256.5 lb or 116.3 kgBMI 41.4Temperature: 97 F or 36.1 CPulse Oximetry: 96 % at rest on no oxygen Chief Complaint: Addressed in HPI Problems or conditions discussed in the HPI were the only ones reviewed during the encounter.Only social and family history addressed in the HPI were reviewed during this encounter. Attendant(s): NoneConstitutional and Systemic Symptoms:none Medication Reconciliation: from medication list. Quwxqegwuxm92/24/2023: Carotid Doppler showed less than 50% stenosis of the left internal carotid artery. The right no significant plaque Identified. Vertebral flow was antegrade bilaterally.09/27/2022: Arterial Doppler showed no significant peripheral vascular disease History of Present Illness #1. Coronary Artery Disease: There has been no change in frequency - duration - intensity in frequency, duration or intensity of chest pain. Other Complaints: none The frequency of anginal attacks is none at all. Additional Symptoms: none Therapy reviewed regarding cardiovascular management includes Aspirin, Atorvastatin Calcium, Lisinopril, Metoprolol, Plavix and Semaglutide #2. Essential Hypertension: Stage: Stage I Interval Neurological Complaints no headaches. No shortness of breath, orthopnea or cardiovascular symptoms. No other symptoms related to end organ damage. Pressure has been under fair control. Currently normal. No other end organ symptoms or findings. Therapy reviewed regarding management of hypertension and includes salt restriction and Lisinopril and Metoprolol. #3. Type II Hypercholesterolaemia: Currently taking medication and tolerating well. No interval complaints of any muscle pain or arthralgia. No significant liver changes with medications. Last lipid panel: fair control. Therapy reviewed regarding treatment of cholesterol management and include diet and Atorvastatin Calcium. #4. Hx of BPH currently stable. No change in strength or initiation of urinary stream. No post voiding problems. No hx of any fever or chills. Currently taking Tamsulosin Hydrochloride. #5. Hx of obesity. Currently Class 3 Obesity OH > 40. Has tried numerous dietary support and supplements with no benefit. Instructed on the health consequences of the obese status particularly cancer - diabetes and heart disease.Currently on Semaglutide is lost and over 40 lb. This was placed on primarily because order is cardiac reasons. Potential candidate for bariatric surgery: No. Wishes to be evaluated by Dietary: No and was offered to be evaluated and instructed by diesel engine inspector on weight loss diet.Medication List Reviewed and Reconciled 04/24/2023Metoprolol 50 MG (TABLET - ORAL) One Bid For HtnPaxil 40 MG (CAPSULE - ORAL) Once DailyLisinopril 20 MG TABLET One Daily For HtnTamsulosin Hydrochloride 0.4 MG (CAPSULE - ORAL) One DailyAtorvastatin Calcium 10 MG TABLET One DailyPlavix 75 MG TABLET, FILM COATED Once DailyAspirin 81 MG TABLET Once DailyFlonase 2 Squirt Each Nostril Twice A DayZyrtec 10 MG TABLET, FILM COATED Once DailyMagnesium Oxide 100 MG Once DailyCoenzyme Q10 400 MG Once DailySemaglutide 2 MG WeeklyADRs List Reviewed 3Arbs RashVaccination and Fynmtyjjjtbo2305-33 Fgb8278-69 Idtihfumt7074-51 Covid Booster Mzacgv9817-41 Gpiz9314-35 Etyp8160-52 Mezkmdxvz9742-08 Covid Bmyuhk8446-24 Prevnar 13 GcSurgical HistoryLAD Drug Eluting StentPreventative Testing Confirmed by Our Tlfavmq0412/20/2022 ALBUMIN 4.4 G/DL N012/20/2022 PSA 1.16 NG/ML N006/05/2022 QDCSQXYQCVKBI33/06/2022 COLONOSCOPY ( 10 YEARS ) 21 HAIC 5.8 % OF TOTAL HGB H001/24/2006 CT THORAXSocial HistoryPt. smokes 1pack cigarettes per day X 15 yrs. Quit 2002 but restarted and has quit again. Does not drink alcohol. 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 TEST RESULT RANGE UNITSCBC/COMPLETE BLD COUNT W/DIFF Date: 12/20/2022WHITE BLOOD CELLS 10.0 4.2-10.8 X10'3/ULHEMOGLOBIN 13.3 13.2-17.0 G/DLHEMATOCRIT 42.3 39.3-50.0 %PLATELETS 262 150-400 X10'3/ULCOMPREHENSIVE METABOLIC PANEL Date: 12/20/2022SODIUM 139 137-145 MMOL/LPOTASSIUM 4.4 3.5-5.1 MMOL/LGLUCOSE 102 70-99 MG/DLBUN 19 8-19 MG/DLCREATININE 0.85 0.66-1.25 MG/DLGFR >60ALKALINE PHOSPHATASE 100 38-126 U/LALANINE AMINOTRANSFERASE 21 0-50 U/LASPARTATE AMINOTRANSFERASE 23 15-46 U/LBILIRUBIN, TOTAL 0.40 0.20-1.30 MG/DLLIPID PANEL Date: 12/20/2022HOLESTEROL 137 140-199 MG/DLTRIGLYCERIDES 142 0-150 MG/DLHDL CHOLESTEROL 39 40- MG/DLLDL CHOLESTEROL, CALCULATED 70 0-130 MG/DLPSA, TOTAL Date: 12/20/2022SA, TOTAL 1.16 0.00-4.00 NG/MLT4 FREE Date: 12/20/2022FREE T4 1.13 0.78-2.19 NG/DLTSH Date: 12/20/2022THYROID-STIMUL ATING HORMONE 0.730 0.465-4.680 UIU/ML Roland Ojeda MD [address] [facility] [address], [address], [place] [facility] [employer] 04/24/2023 14:39:21 08/28/2023 text/html Patient Name: Rhoda Wisete Of Service: Saturday ( 08.28.2023 ): 1955 Age: 67 There has been approximately a 7.5 lb weight loss since 04/24/2023. This represents approximately a 2.9% change in weight. Weight change attributable to lifestyle changes. Vital Signs:Blood Pressure: Sitting Rt. Arm 122/84Pulse: Sitting 81 /min and RegularRespiratory Rate: 12Height 66 in or 1.7 mWeight 249 lb or 112.9 kgBMI 40.2Temperature: 97 F or 36.1 CPulse Oximetry: 99 % at rest on no oxygen Chief Complaint: Addressed in HPI Problems or conditions discussed in the HPI were the only ones reviewed during the encounter.Only social and family history addressed in the HPI were reviewed during this encounter. Attendant(s): NoneConstitutional and Systemic Symptoms:none Medication Reconciliation: from medication list. Vmivjjrzsxm78/24/2023: Carotid Doppler showed less than 50% stenosis of the left internal carotid artery. The right no significant plaque Identified. Vertebral flow was antegrade bilaterally.09/27/2022: Arterial Doppler showed no significant peripheral vascular disease History of Present Illness #1. Coronary Artery Disease: There has been no change in frequency - duration - intensity in frequency, duration or intensity of chest pain. Other Complaints: none The frequency of anginal attacks is none at all. Additional Symptoms: none Therapy reviewed regarding cardiovascular management includes Aspirin, Atorvastatin Calcium, Lisinopril, Metoprolol, Plavix and Zetia #2. Essential Hypertension: Stage: Stage I Interval Neurological Complaints no headaches, dizziness, weakness, visual changes, ataxia, aphasia and apraxia. No shortness of breath, orthopnea or cardiovascular symptoms. No other symptoms related to end organ damage. Pressure has been under excellent control. Currently normal. No other end organ symptoms or findings. Therapy reviewed regarding management of hypertension and includes salt restriction and Lisinopril and Metoprolol. #3. Type II Hypercholesterolaemia: Currently taking medication and tolerating well. No interval complaints of any muscle pain or arthralgia. No significant liver changes with medications. Last lipid panel: excellent control. Therapy reviewed regarding treatment of cholesterol management and include diet and Atorvastatin Calcium and Zetia. #4. Hx of obesity. Currently Class 3 Obesity [place] > 40. Has tried numerous dietary support and supplements with no benefit. Instructed on the health consequences of the obese status particularly cancer - diabetes and heart disease. Discussed new modalities of weight loss including GLP-1 medications that are used to treat diabetes. Potential candidate for bariatric surgery: Yes but does no wish to pursue. Wishes to be evaluated by Dietary: No and was offered to be evaluated and instructed by diesel engine inspector on weight loss diet. Active Medication ListMetoprolol 50 MG (TABLET - ORAL) One Bid For HtnPaxil 40 MG (CAPSULE - ORAL) Once DailyLisinopril 20 MG TABLET One Daily For HtnTamsulosin Hydrochloride 0.4 MG (CAPSULE - ORAL) One DailyAtorvastatin Calcium 40 MG TABLET One DailyPlavix 75 MG TABLET, FILM COATED Once DailyAspirin 81 MG TABLET Once DailyFlonase 2 Squirt Each Nostril Twice A DayZyrtec 10 MG TABLET, FILM COATED Once DailyMagnesium Oxide 100 MG Once DailyCoenzyme Q10 400 MG Once DailySemaglutide 2 MG WeeklyZetia 10 MG TABLET Once Daily Adverse Drug Reactions ReviewedArbs Rash Vaccination and Qqydktcifsbf6629-99 Iub4349-23 Ywapuvqal0172-55 Covid Booster Epajxd4700-15 Voqy4560-65 Jekh9242-53 Llcklucvg0659-05 Covid Bolfof9975-06 Prevnar 13 Gc Surgical Couhhqm3583-07 LAD Drug Eluting Stent Preventative Iqvweyj1305/03/2023 ALBUMIN 4.2 G/DL12/20/2022 PSA 1.16 NG/ML N006/05/2022 XPJIZDASPBHZP91/06/2022 COLONOSCOPY ( 10 YEARS ) 210/ HAIC 5.8 % OF TOTAL HGB H001/24/2006 CT THORAX Social HistoryPt. smokes 1pack cigarettes per day X 15 yrs. Quit 2002 but restarted and has quit again. Does not drink alcohol. 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 Family HistoryMother at 90 from arteriosclerotic heart disease and hx of pacemaker.Father 84 from Type II Diabetes, arteriosclerotic heart disease and CVAOne sister who CTDFour brothers one of testicular cancer and one currently stage 4 prostate cancer. TEST RESULT RANGE UNITSLIPID PANEL Date: 3CHOLESTEROL 131 140-199 MG/DLTRIGLYCERIDES 86 0-150 MG/DLHDL CHOLESTEROL 45 40- MG/DLLDL CHOLESTEROL, CALCULATED 69 0-130 MG/DLCOMPREHENSIVE METABOLIC PANEL Date: 05/03/2023SODIUM 142 137-145 MMOL/LPOTASSIUM 4.5 3.5-5.1 MMOL/LGLUCOSE 98 70-99 MG/DLBUN 20 8-19 MG/DLCREATININE 0.93 0.66-1.25 MG/DLGFR >60T4 FREE Date: 05/03/2023FREE T4 1.16 0.78-2.19 NG/DLTSH Date: 05/03/2023THYROID-STIMU LATING HORMONE 0.248 0.465-4.680 UIU/MLCBC/COMPLETE BLD COUNT W/DIFF Date: 05/03/2023WHITE BLOOD CELLS 8.4 4.2-10.8 X10'3/ULHEMOGLOBIN 13.4 13.2-17.0 G/DLHEMATOCRIT 41.9 39.3-50.0 %PLATELETS 277 150-400 X10'3/UL Roland Ojeda MD [address] [facility] [address], [place], [address], [place] [facility] [employer] [facility] 08/28/2023 14:49:59 10/07/2023 text/html Patient Name: Rhoda [place] PiperDate Of Service: Saturday ( 10.07.2023 ): 1955 Age: 67 There has been approximately a 7 lb weight loss since 08/28/2023. This represents approximately a 2.8% change in weight. Weight change attributable to lifestyle changes. Vital Signs:Blood Pressure: Sitting Rt. Arm 124/88Pulse: Sitting 82 /min and RegularRespiratory Rate: 12Height 66 in or 1.7 mWeight 242 lb or 109.8 kgBMI 39.1Temperature: 97.1 F or 36.2 CPulse Oximetry: 95 % at rest on no oxygen Chief Complaint: Addressed in HPI Problems or conditions discussed in the HPI were the only ones reviewed during the encounter.Only social and family history addressed in the HPI were reviewed during this encounter. Attendant(s): NoneConstitutional and Systemic Symptoms:none Medication Reconciliation: from medication list. Gndtyujhcrb18/24/2023: Carotid Doppler showed less than 50% stenosis of the left internal carotid artery. The right no significant plaque Identified. Vertebral flow was antegrade bilaterally.09/27/2022: Arterial Doppler showed no significant peripheral vascular disease History of Present Illness #1. Coronary Artery Disease: There has been no change in frequency - duration - intensity in frequency, duration or intensity of chest pain. Other Complaints: none The frequency of anginal attacks is none at all. Additional Symptoms: none Therapy reviewed regarding cardiovascular management includes Aspirin, Atorvastatin Calcium, Lisinopril, Metoprolol, Plavix and Zetia #2. Essential Hypertension: Stage: Stage I Interval Neurological Complaints no headaches, dizziness, weakness, visual changes, ataxia, aphasia and apraxia. No shortness of breath, orthopnea or cardiovascular symptoms. No other symptoms related to end organ damage. Pressure has been under fair control. Currently diastolic elevation only. No other end organ symptoms or findings. Therapy reviewed regarding management of hypertension and includes salt restriction and Lisinopril and Metoprolol. #3. Type II Hypercholesterolaemia: Currently taking medication and tolerating well. No interval complaints of any muscle pain or arthralgia. No significant liver changes with medications. Last lipid panel: excellent control. Therapy reviewed regarding treatment of cholesterol management and include diet and Atorvastatin Calcium and Zetia. #4. Degenerative arthritis scheduled for a left knee replacement on the . No interval complaints any acute problems although the diastolic blood pressure has been somewhat elevated.: #5. Hx of obesity. Currently Class 2 Obesity BMI 35-39.99. Has tried numerous dietary support and supplements with no benefit. Instructed on the health consequences of the obese status particularly cancer - diabetes and heart disease. Discussed new modalities of weight loss including GLP-1 medications that are used to treat diabetes. Potential candidate for bariatric surgery: No. Wishes to be evaluated by Dietary: No and was offered to be evaluated and instructed by diesel engine inspector on weight loss diet. Active Medication ListMetoprolol 50 MG (TABLET - ORAL) One Bid For HtnPaxil 40 MG (CAPSULE - ORAL) Once DailyLisinopril 20 MG TABLET One Daily For HtnTamsulosin Hydrochloride 0.4 MG (CAPSULE - ORAL) One DailyAtorvastatin Calcium 40 MG TABLET One DailyPlavix 75 MG TABLET, FILM COATED Once DailyAspirin 81 MG TABLET Once DailyFlonase 2 Squirt Each Nostril Twice A DayZyrtec 10 MG TABLET, FILM COATED Once DailyMagnesium Oxide 100 MG Once DailyCoenzyme Q10 400 MG Once DailySemaglutide 2 MG WeeklyZetia 10 MG TABLET Once Daily Adverse Drug Reactions ReviewedArbs Rash Vaccination and Obtevqbxvvsw9882-37 Efh0302-17 Fptverdns1140-66 Covid Booster Xjaqjn9209-12 Byae1620-33 Koga2761-85 Idxvykbcz8332-79 Covid Nswpmb6630-05 Prevnar 13 Gc Surgical Mqwtnix3508-77 LAD Drug Eluting Stent Preventative Wqccyfp5005/03/2023 ALBUMIN 4.2 G/DL12/20/2022 PSA 1.16 NG/ML N006/05/2022 IUKXDDIZUBNWW05/06/2022 COLONOSCOPY ( 10 YEARS ) 21 HAIC 5.8 % OF TOTAL HGB H001/24/2006 CT THORAX Social HistoryPt. smokes 1pack cigarettes per day X 15 yrs. Quit 2002 but restarted and has quit again. Does not drink alcohol. 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 Family HistoryMother at 90 from arteriosclerotic heart disease and hx of pacemaker.Father 84 from Type II Diabetes, arteriosclerotic heart disease and CVAOne sister who CTDFour brothers one of testicular cancer and one currently stage 4 prostate cancer. Roland Ojeda MD [address] [facility], [facility] [address], [place], [address], [facility] [employer] 10/07/2023 14:32:58 12/25/2023 text/html Patient Name: Rhoda [place] PiperDate Of Service: Saturday ( 12.25.2023 ): 1955 Age: 68 Vital Signs:Blood Pressure: Sitting Rt. Arm 134/86Pulse: Sitting 78 /min and RegularRespiratory Rate: 14Height 66 in or 1.7 mWeight 242.5 lb or 110.0 kgBMI 39.1Temperature: 97.8 F or 36.6 CPulse Oximetry: 98 % at rest on no oxygen Chief Complaint: Addressed in HPI Problems or conditions discussed in the HPI were the only ones reviewed during the encounter.Only social and family history addressed in the HPI were reviewed during this encounter. A significant, separate E/M service was performed to evaluate the current and new problems. Attendant(s): NoneConstitutional and Systemic Symptoms:none Medication Reconciliation: from medication list. Fjsrgkvkkgf28/24/2023: Carotid Doppler showed less than 50% stenosis of the left internal carotid artery. The right no significant plaque Identified. Vertebral flow was antegrade bilaterally.09/27/2022: Arterial Doppler showed no significant peripheral vascular disease History of Present Illness Reviewed the findings of the preventative health visit. Addressed all areas with the patient, patient's family or caregivers. Preventative examinations and testing immunizations - vaccinations, colonic neoplasm screening and PSA all reviewed and ordered where patient was amenable to the recommendations. Cognitive function was normal. Depression addressed and where necessary medications were adjusted or instituted. End of life and living will briefly discussed with patient and where these can be filled out and legally executed. Other blood and imaging studies were ordered if considered necessary. Other recommendations may be found in the encounter note. #1. Coronary Artery Disease: There has been no change in frequency - duration - intensity in frequency, duration or intensity of chest pain. Other Complaints: none The frequency of anginal attacks is none at all. Additional Symptoms: none Therapy reviewed regarding cardiovascular management includes Aspirin, Atorvastatin Calcium, Lisinopril, Metoprolol, Plavix and Zetia #2. Essential Hypertension: Stage: Stage I Interval Neurological Complaints no headaches, dizziness, weakness, visual changes, ataxia, aphasia and apraxia. No shortness of breath, orthopnea or cardiovascular symptoms. No other symptoms related to end organ damage. Pressure has been under excellent control. Currently normal. No other end organ symptoms or findings. Therapy reviewed regarding management of hypertension and includes salt restriction and Lisinopril and Metoprolol. #3. Type II Hypercholesterolaemia: Currently taking medication and tolerating well. No interval complaints of any muscle pain or arthralgia. No significant liver changes with medications. Last lipid panel: excellent control. Therapy reviewed regarding treatment of cholesterol management and include diet and Atorvastatin Calcium and Zetia. #4. Hx of obesity. Currently Class 2 Obesity BMI 35-39.99. Has tried numerous dietary support and supplements with no benefit. Instructed on the health consequences of the obese status particularly cancer - diabetes and heart disease. Discussed other modalities of weight loss Yes. Potential candidate for bariatric surgery: No and was offered to be evaluated and instructed by diesel engine inspector on weight loss diet. Wishes to be evaluated by Dietary: No and was offered to be evaluated and instructed by diesel engine inspector on weight loss diet. Active Medication ListMetoprolol 50 MG (TABLET - ORAL) One Bid For HtnPaxil 40 MG (CAPSULE - ORAL) Once DailyLisinopril 30 MG TABLET One Daily For HtnTamsulosin Hydrochloride 0.4 MG (CAPSULE - ORAL) One DailyAtorvastatin Calcium 40 MG TABLET One DailyPlavix 75 MG TABLET, FILM COATED Once DailyAspirin 81 MG TABLET Once DailyFlonase 2 Squirt Each Nostril Twice A DayZyrtec 10 MG TABLET, FILM COATED Once DailyMagnesium Oxide 100 MG Once DailyCoenzyme Q10 400 MG Once DailySemaglutide 2 MG WeeklyZetia 10 MG TABLET Once Daily Adverse Drug Reactions ReviewedArbs Rash Vaccination and Ezbusrtqalzn5040-11 Lvg4232-45 Zzqntdgtv9999-31 Covid Booster Qejthl5655-59 Fvpe7004-84 Adzw7097-50 Uhksssyzd4493-76 Covid Klbmne1214-99 Prevnar 13 Gc Surgical Sknahxp1490-95 Rt. TEB9608-91 LAD Drug Eluting Stent Preventative Testing( ) 05/03/2023 Albumin 4.2 G/DL( ) 12/20/2022 PSA 1.16 NG/ML N 12/20/2024( ) 06/05/2022 Ophthalmology( ) 11/08/2021 Colonoscopy ( 10 Years ) 11/09/2031( ) 02/28/2015 HAIC 5.8 % OF TOTAL HGB H( ) 01/24/2006 CT Thorax Social HistoryPt. smokes 1pack cigarettes per day X 15 yrs. Quit 2002 but restarted and has quit again. Does not drink alcohol. 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 Family HistoryMother at 90 from arteriosclerotic heart disease and hx of pacemaker.Father 84 from Type II Diabetes, arteriosclerotic heart disease and CVAOne sister who CTDFour brothers one of testicular cancer and one currently stage 4 prostate cancer. Active Medication ListMetoprolol 50 MG (TABLET - ORAL) One Bid For HtnPaxil 40 MG (CAPSULE - ORAL) Once DailyLisinopril 30 MG TABLET One Daily For HtnTamsulosin Hydrochloride 0.4 MG (CAPSULE - ORAL) One DailyAtorvastatin Calcium 40 MG TABLET One DailyPlavix 75 MG TABLET, FILM COATED Once DailyAspirin 81 MG TABLET Once DailyFlonase 2 Squirt Each Nostril Twice A DayZyrtec 10 MG TABLET, FILM COATED Once DailyMagnesium Oxide 100 MG Once DailyCoenzyme Q10 400 MG Once DailySemaglutide 2 MG WeeklyZetia 10 MG TABLET Once Daily Adverse Drug Reactions ReviewedArbs Rash Vaccination and Rhngamydvqot0802-94 Gfj6847-79 Uavcqazlj1137-03 Covid Booster Lnrofo6149-28 Xuwg5620-18 Nlfj5836-31 Ypgojmtwo9454-88 Covid Sugmzc6776-26 Prevnar 13 Surgical Akaygdq7060-95 Rt. HNY7422-10 LAD Drug Eluting Stent Preventative Testing( ) 05/03/2023 Albumin 4.2 G/DL( ) 12/20/2022 PSA 1.16 NG/ML N 12/20/2024( ) 06/05/2022 Ophthalmology( ) 11/08/2021 Colonoscopy ( 10 Years ) 11/09/2031( ) 02/28/2015 HAIC 5.8 % OF TOTAL HGB H( ) 01/24/2006 CT Thorax Social HistoryPt. smokes 1pack cigarettes per day X 15 yrs. Quit 2002 but restarted and has quit again. Does not drink alcohol. 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 Family HistoryMother at 90 from arteriosclerotic heart disease and hx of pacemaker.Father 84 from Type II Diabetes, arteriosclerotic heart disease and CVAOne sister who CTDFour brothers one of testicular cancer and one currently stage 4 prostate cancer. TEST RESULT RANGE UNITSCBC/COMPLETE BLD COUNT W/DIFF Date: 05/03/2023WHITE BLOOD CELLS 8.4 4.2-10.8 X10'3/ULHEMOGLOBIN 13.4 13.2-17.0 G/DLHEMATOCRIT 41.9 39.3-50.0 %PLATELETS 277 150-400 X10'3/ULCOMPREHENSIVE METABOLIC PANEL Date: 05/03/2023SODIUM 142 137-145 MMOL/LPOTASSIUM 4.5 3.5-5.1 MMOL/LGLUCOSE 98 70-99 MG/DLBUN 20 8-19 MG/DLCREATININE 0.93 0.66-1.25 MG/DLGFR >60ALKALINE PHOSPHATASE 94 38-126 U/LALANINE AMINOTRANSFERASE 17 0-50 U/LASPARTATE AMINOTRANSFERASE 21 15-46 U/LBILIRUBIN, TOTAL 0.60 0.20-1.30 MG/DLCALCIUM 10.0 8.4-10.2 MG/DLLIPID PANEL Date: 05/03/2023HOLESTEROL 131 140-199 MG/DLTRIGLYCERIDES 86 0-150 MG/DLHDL CHOLESTEROL 45 40- MG/DLLDL CHOLESTEROL, CALCULATED 69 0-130 MG/DL Roland Ojeda MD [address] [facility], [facility] [address], [place], [address], [facility] [employer] 12/25/2023 14:54:01 04/15/2024 text/html Patient Name: Rhoda [place] PiperDate Of Service: Saturday ( 04.15.2024 ): 1955 Age: 68 Vital Signs:Blood Pressure: Sitting Rt. Arm 140/88Pulse: Sitting 93 /min and RegularRespiratory Rate: 14Height 66 in or 1.7 mWeight 242 lb or 109.8 kgBMI 39.1Temperature: 97 F or 36.1 CPulse Oximetry: 97 % at rest on no oxygen Chief Complaint: Addressed in HPI Problems or conditions discussed in the HPI were the only ones reviewed during the encounter.Only social and family history addressed in the HPI were reviewed during this encounter. Attendant(s): NoneConstitutional and Systemic Symptoms:none Medication Reconciliation: from medication list. Pqirovukfxv85/24/2023: Carotid Doppler showed less than 50% stenosis of the left internal carotid artery. The right no significant plaque Identified. Vertebral flow was antegrade bilaterally.09/27/2022: Arterial Doppler showed no significant peripheral vascular disease History of Present Illness #1. Coronary Artery Disease: There has been no change in frequency - duration - intensity in frequency, duration or intensity of chest pain. Other Complaints: none The frequency of anginal attacks is none at all. Additional Symptoms: none Therapy reviewed regarding cardiovascular management includes Aspirin, Atorvastatin Calcium, Lisinopril, Metoprolol, Plavix and Zetia #2. Essential Hypertension: Stage: Stage I Interval Neurological Complaints no headaches, dizziness, weakness, visual changes, ataxia, aphasia and apraxia. No shortness of breath, orthopnea or cardiovascular symptoms. No other symptoms related to end organ damage. Pressure has been under excellent control. Currently normal. No other end organ symptoms or findings. Therapy reviewed regarding management of hypertension and includes salt restriction and Lisinopril and Metoprolol. #3. Type II Hypercholesterolaemia: Currently taking medication and tolerating well. No interval complaints of any muscle pain or arthralgia. No significant liver changes with medications. Last lipid panel: fair control. Therapy reviewed regarding treatment of cholesterol management and include diet and Atorvastatin Calcium. #4. Hx of obesity. Currently Class 2 Obesity BMI 35-39.99. Has tried numerous dietary support and supplements with no benefit. Instructed on the health consequences of the obese status particularly cancer - diabetes and heart disease. Discussed other modalities of weight loss GLP-1 medications that are used to treat diabetes . Potential candidate for bariatric surgery: No. Wishes to be evaluated by Dietary: No and was offered to be evaluated and instructed by diesel engine inspector on weight loss diet. Active Medication ListMetoprolol 50 MG (TABLET - ORAL) One Bid For HtnPaxil 40 MG (CAPSULE - ORAL) Once DailyLisinopril 30 MG TABLET One Daily For HtnTamsulosin Hydrochloride 0.4 MG (CAPSULE - ORAL) One DailyAtorvastatin Calcium 40 MG TABLET One DailyPlavix 75 MG TABLET, FILM COATED Once DailyAspirin 81 MG TABLET Once DailyFlonase 2 Squirt Each Nostril Twice A DayZyrtec 10 MG TABLET, FILM COATED Once DailyMagnesium Oxide 100 MG Once DailyCoenzyme Q10 400 MG Once DailySemaglutide 2 MG WeeklyZetia 10 MG TABLET Once Daily Adverse Drug Reactions ReviewedArbs Rash Vaccination and Immunization(X) 2023-02 INFLUENZA( ) 2020-03 PREVNAR 13 GC( ) 2020- COVID PFIZER( ) 2020- PNEUMOVAX( ) 2023-02 RSV(X) 2023-02 COVID BOOSTER PFIZER( ) 2021-09 DTAP( ) 2021-09 TDAP Surgical Ewzgxxg0875-36 Nasal Mmjlxw1982-30 Rt. AMA6141-61 LAD Drug Eluting Stent Preventative Testing( ) 05/03/2023 Albumin 4.2 G/DL( ) 12/20/2022 PSA 1.16 NG/ML N 12/20/2024( ) 06/05/2022 Ophthalmology( ) 11/08/2021 Colonoscopy ( 10 Years ) 11/09/2031( ) 02/28/2015 HAIC 5.8 % OF TOTAL HGB H( ) 01/24/2006 CT Thorax Social HistoryPt. smokes 1pack cigarettes per day X 15 yrs. Quit 2002 but restarted and has quit again. Does not drink alcohol. 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 Family HistoryMother at 90 from arteriosclerotic heart disease and hx of pacemaker.Father 84 from Type II Diabetes, arteriosclerotic heart disease and CVAOne sister who CTDFour brothers one of testicular cancer and one currently stage 4 prostate cancer. Roland Ojeda MD [address] [facility], [place], [address], [place] [facility] [employer] 04/15/2024 15:05:56
--- OUTSIDE RECORDS SUMMARY | 2024-05-17 13:01 | XMS_ITS | Patient Health Summary ---
Author Organization [facility] Address [address] [place] [address] Care Team Providers Care Guest Service Aide Name Role Phone Unavailable Primary Care Provider Unavailabl e Note from [facility],non-owned Affiliates and Associated Physician Practices is amultiple site organization consisting of ambulatory clinics and hospital sitesin [place], [place], [place] and [place]. This disclosure is being madepursuant to the Care Everywhere program and may not contain all information available regarding this patient. Last updated 18.[facility] Allergies No known active allergies Immunizations * INFLUENZA VACCINE, QUADR. (FLUZONE; FLULAVAL; FLUARIX; AFLURIA QUADRIVALENT; 6MO+), 0.5 ML (IIV4)(Given 03/24/2019) Social History Tobacco Use Types Packs/Day Years Used Date Smoking Tobacco: Never Assessed Sex and Gender Information Value Date Recorded Sex Assigned at Not on file Gender Identity Not on file Sexual Orientation Not on file
--- OUTSIDE RECORDS SUMMARY | 2024-05-17 13:01 | XMS_ITS | Clinical Summary ---
Author Organization [facility] Address [address] [place] [address] Care Team Providers Care Car Wiper Name Role Phone Unavailable Primary Care Provider Unavailabl e Encounters Date Type Department Care Team Description 02/18/2024 External Device Data STL ABSTRACTION Provider, Abstract from Last 3 Months Social History Tobacco Use Types Packs/Day Years Used Date Smoking Tobacco: Never Assessed Sex and Gender Information Value Date Recorded Sex Assigned at Not on file Gender Identity Not on file Sexual Orientation Not on file Plan of Treatment Health Maintenance Due Date Last Done Comments Pre-Diabetes and Diabetes Screening 1955 FIT-DNA Q 3 years 1998 FIT/FOBT Q 1 year 1998 Flex Sig/CT Colonography Q 5 years 1998 ZOSTER VACCINE (1 of 2) 12/16/2003 RSV VACCINE (60+ or ) (1 - Risk 60-74 years 1-dose series) 2013 INFLUENZA VACCINE (#1) 2023 2, 02/05/2021, 03/24/2019, Additional history exists COLORECTAL SCREENING 12/17/2023 12/16/2013 Colorectal Cancer Screening 12/17/2023 DTAP/TDAP/TD VACCINES (2 - T d or Tdap) 09/28/2031 09/27/2021 PNEUMOCOCCAL VACCINE 65+ YEARS Completed 03/27/2021 , 03/14/2020
--- OUTSIDE RECORDS SUMMARY | 2024-05-17 13:01 | XMS_ITS | Continuity of Care Document ---
Author Organization [place] - [facility], [facility] Internal Med [facility] [address] [address] Assessment No assessment recorded. Plan of Treatment Reminders Order Date Submit Date Provider Last Modified By Organization Details Last Modified Time Details Appointments None recorded . Lab PSA, serum or plasma 024 04/15/20 [facility], [address] , [place], [address], 4 04:07:43 CBC w/ auto diff 024 04/15/20 [facility], [address], [place], [address], 4 08:50:58 CMP, serum or plasma 024 04/15/20 24 [facility], [address], [place], [address], 4 04:07:41 lipid panel, serum 024 04/15/20 [facility], [address], [place], [address], 4 04:07:42 TSH, serum or plasma 024 04/15/20 [facility], [address], [place], [address], 4 04:07:42 T4, free, serum 024 04/15/20 24 [facility], [address], [place], [address], 4 04:07:42 Referral None recorded . Procedures None recorded . Surgeries None recorded . Imaging None recorded . Medication Orders None recorded . Patient TargetsNo targets recorded. Patient Instructions Encounter Date Encounter Id Patient Instructions Last Modified By Organization Details Last Modified Time 04/15/2024 [id number] Follow-up for coronary artery disease, hypertension, hyperlipidemia [...] voice recognition software. Occasional wrong-word or ? [id number]-g-[id number]? substitutions may have occurred due to the inherent limitations of voice recognition software. Read the chart carefully and recognize, using context, where substitutions have occurred. Created: Roland Ojeda M.D. 04.15.2024 02:05 PM [place] [id number] Not available 04/15/2024 15:05:39 Reason for Referral None Reported. Results Created Date Observation Date Name Description Value Unit Range Abnormal Flag Note LastModifiedBy Organization Detail LastModifiedTime 05/11/1905/11/2024 XR, knee No observ ation record ed. [address], [place], [address], 05/11/2024 14:44:23 Result Notes None recorded. Problems Name Problem SNOMED Code Status Onset Date Resolution Date Notes Provider Name and Address Organization Details Recorded Time Benign essential hypertensi on 6078391 Active Not Available [facility] 4 06:40:37 Acute sinusitis 29701521 Active 2021 Not Available [facility] 4 06:40:37 Morbid obesity 136750344 Active 2021 Not Available [facility] 4 06:40:37 Osteoarthr itis of knee 121262257 Active 2018 Not Available [facility] 4 06:40:37 Benign prostatic hyperplasi a 562234211 Active 2016 Not Available [facility] 4 06:40:37 Right upper quadrant pain 729255420 Active 2016 Not Available [facility] 4 06:40:37 Depressive disorder 14628177 Active Not Available [facility] 4 06:40:37 History of polyp of colon 637465788 Active 2019 Not Available [facility] 4 06:40:37 Hyperlipid emia 50745819 Active 2021 Not Available [facility] 4 06:40:37 Coronary arterioscl erosis 99041048 Active 2022 Not Available [facility] 4 06:40:37 Disorder of prostate 08561834 Active 2022 Not Available [facility] 4 06:40:37 Allergic rhinitis 81672674 Active 2023 Roland Ojeda MD [address], [place], [address] , [address] [employer] 4 16:54:54 Obese class II 3508379156239 05 Active 2023 Roland Ojeda MD [address], [address], [place], [address] , [employer] [facility] 4 14:27:20 Polyp of nasal cavity 962788931 Active 2023 Roland Ojeda MD [address], [place], [address] , [address] [facility] 4 14:49:11 Problem Notes None recorded. Procedures Surgical History Date Name Laterality Status Provider Name and Address Organization Details Recorded Time 12/25/19 Medicare Wellness CPT Code, subsequent completed RASHEL Aguilar MD [employer] [facility] 12/25/2023 14:41:02 12/25/19 Advanced Care Planning completed RASHEL Aguilar MD [employer] [facility] 12/25/2023 14:46:33 12/20/19 Medicare Wellness CPT Code, Initial completed RASHEL Aguilar - [facility] [employer] [facility] 12/19/2022 14:39:06 12/17/19 14 colonoscopy completed Not Available [facility] 07/05/19 14:45:15 Imaging Results None recorded. Procedure Notes None recorded. Medical Equipment None Reported. Allergies Allergen ID Allergen Name Allergen Category Reaction Reaction Severity Criticality Documentation Date Start Date Code Code System Note Provider Name and Address Organization Details Recorded Time 73203 Actos medicatio n rash Not available Not available 07/04/2022 57752 2 RxNorm Not Available [facility] 14:49:50 Medications Name Sig Start Date Stop [...] Flonase 50 mcg/actuati on nasal spray,suspe nsion [place] 2 sprays every day by intranasa l [...] administe red by the provider 03/[address] [facility]: 0003- 0494- 20 Not Available Not Available [...] Available Not Available No t Available Zyrtec 04/04 completed Not Available Not Available Not Available lidocaine (PF) 10 mg/mL (1 %) injection solution In office injection administe red by the provider 03/[address] [facility]: 0409- 4276- 17 Not Available Not Available [...] Not Available Not Available Fluzone High-Dose Quad (PF) 240 mcg/0.7 mL IM syringe ADM [...] Updated DateTime 4 167.64 cm 39.1 kg/m2 406448. 35 g 93 /min 97 [degF] 97 % 97 % JAVIER [facility] [employer] 14:51:44 Date Recorded Systolic blood pressure Diastolic blood pressure Provider Name and Address Organization Details Last Updated DateTime 04/15/2024 140 mm[Hg] 88 mm[Hg] Roland Ojeda MD [address] [facility], [facility] [address], [place], [address], [employer] 04/15/2024 15:00:41 Social History Question Answer Notes LastModified by Organization Details LastModified Time Tobacco Smoking Status Former Smoker Not Available [facility] 07/04/2022 14:44:58 Do You Have An Advance Directive? No Info Given [email or web address] Information not available 12/25/2023 What Is Your Level Of Alcohol Consumption? Occasional MIGRATION.0301 [id number] Information not available 07/04/2022 Are You Blind Or Do You Have Difficulty Seeing? No MIGRATION.0301 [id number] Information not available 07/04/2022 What Is Your Level Of Caffeine Consumption? Occasional MIGRATION.0301 730541 Information not available 07/04/2022 Are You Deaf Or Do You Have Serious Difficulty Hearing? No MIGRATION.0301 313355 Information not available 07/04/2022 What Type Of Diet Are You Following? REGULAR MIGRATION.0301 487766 Information not available 07/04/2022 Have There Been Any Changes To Your Family Or Social Situation? No [email or web address] Information not available 12/19/2022 What Is The Fluoride Status Of Your Home? Unknown [email or web address] Information not available 12/19/2022 When Did You Quit Smoking? 14+yearssincelastci giovanni MIGRATION.0301 644437 Information not available 07/04/2022 Where Do You Live? SingleLevelHouse [email or web address] Information not available 12/19/2022 Are You Able To Care For Yourself? Yes [email or web address] Information not available 12/19/2022 Are You Blind Or Do Yo Have Difficulty Seeing? No Information not available 12/19/2022 Are You Deaf Or Do You Have Serious Difficulty Hearing? Yes Hearing Aids Information not available 12/25/2023 Live Alone Of With Others? With Others [email or web address] Information not available 12/19/2022 Do You Have A Medical Power Of Bander Operator? No [email or web address] Information not available 12/19/2022 What Was The Date Of Your Most Recent Tobacco Screening? 12/25/2023 [email or web address] Information not available 12/25/2023 Do You Have Any Pets? No [email or web address] Information not available 12/19/2022 What Is Your Relationship Status? MIGRATION.0301 716878 Information not available 07/04/2022 Do You Use Your Seat Belt Or Car Seat Routinely? Yes [email or web address] Information not available 12/19/2022 Do You Have Smoke And Carbon Monoxide Detectors In Your Home? Yes [email or web address] Information not available 12/19/2022 Are You Passively Exposed To Smoke? No [email or web address] Information not available 12/19/2022 Are There Any Smokers In Your House? No [email or web address] Information not available 12/19/2022 Have You Recently Traveled Abroad? No MIGRATION.0301 119442 Information not available 07/04/2022 Do You Or Have You Ever Used Any Other Forms Of Tobacco Or Nicotine? No MIGRATION.0301 501525 Information not available 07/04/2022 Sex: Unknown Functional Status Question Answer Note LastModified by Organizat ion Details LastModified Time Do you have difficulty walking or climbing stairs? No MIGRATION.36154 98288 Information not available 07/04/2022 Do you have transportation difficulties? No [email or web address] Information not available 12/19/2022 Are you able to walk? YESASSIST sometimes a cane, recent knee surgery Information not available 12/25/2023 Do you have difficulty doing errands alone? No MIGRATION.89072 60440 Information not available 07/04/2022 Are you able to care for yourself? Yes MIGRATION.11337 33855 Information not available 07/04/2022 Do you have difficulty dressing or bathing? No MIGRATION.16964 85397 Information not available 07/04/2022 What is your exercise level? Occasional [email or web address] Information not available 12/19/2022 Mental Status Question Answer Note LastModified by Organizat ion Details LastModified Time Do you have difficulty concentrating, remembering or making decisions? No MIGRATION.309108165 6 Information not available 07/04/2022 Family History Relationship Description Onset Age of this Age Resolved Age Notes LastModified by Organization Details LastModified Time Father Heart disease MIGRATION.310 [id number] Not available 07/04/2022 14:45:15 Father Family history of stroke MIGRATION.989 7005410 Not available 07/04/2022 14:45:15 Father History of hypertension MIGRATION.265 [id number] Not available 07/04/2022 14:45:15 Brother Family history of malignant neoplasm MIGRATION.986 [id number] Not available 07/04/2022 14:45:15 Notes:Mother at 90 [...] HAVE YOU BEEN HOSPITALIZED OR SEEN IN [facility] IN THE PAST YEAR ? N [...] Immunizations Vaccine Type Date Status Note Provider [facility] e and Address Organization Details Recorded Time SARS-COV-2 (COVID-19) vaccine, UNSPECIFIED 3 completed Not Available [facility] 05/29/2023 06:40:38 influenza, unspecified formulation 3 completed Not Available [facility] 05/29/2023 06:40:38 Respiratory syncytial virus (RSV) MAB, unspecified 3 completed Not Available [facility] 05/29/2023 06:40:38 Influenza, adjuvanted, trivalent, PF 9 completed Not Available [facility] 05/29/2023 06:40:38 Influenza, split virus, quadrivalent, preservative 2 completed Not Available [facility] 05/29/2023 06:40:38 COVID-19, mRNA, LNP-S, PF, 30 mcg/0.3 mL dose 2 completed Not Available [facility] 05/29/2023 06:40:38 COVID-19, mRNA, LNP-S, PF, 30 mcg/0.3 mL dose 2 completed Not Available [facility] 05/29/2023 06:40:38 Influenza, split virus, trivalent, preservative 1 completed Not Available [facility] 05/29/2023 06:40:38 SARS-COV-2 (COVID-19) vaccine, UNSPECIFIED 1 completed Not Available [facility] 05/29/2023 06:40:38 SARS-COV-2 (COVID-19) vaccine, UNSPECIFIED 1 completed Not Available [facility] 05/29/2023 06:40:38 Tdap 2 completed Not Available [facility] 05/29/2023 06:40:38 pneumococcal polysaccharide PPV23 1 completed Not Available [facility] 05/29/2023 06:40:38 Influenza, MDCK, quadrivalent, PF 8 completed Not Available [facility] 05/29/2023 06:40:38 Pneumococcal conjugate PCV 13 0 completed Not Available [facility] 05/29/2023 06:40:38 Past Encounters Encounter ID Performer Location Encounter Start Date Encounter Closed Date Diagnosis/Indication Diagnosis SNOMED-CT Code Diagnosis ICD10 Code Diagnosis Note [id number] Roland Ojeda MD [facility] [address] [place] [address] 04/15/2024 14:46:09 04/15/2024 15:14:48 Coronary arteriosclerosis 82506214 I25.10 Benign ess ential hypertension 5008069 I10 Hyperlipidemia 20082289 E78.5 Obese class II 012245048 1 12356 E66.9 Disorder of prostate 302 48350 N42.9 Health Concerns Section Related Observation LastModified by Organization Detai ls LastModified Time None Recorded Concern Status LastModified by Organization Details LastModified Time None Recorded Payers Encounter Date Sequence Insurance Name Policy Number Policy Kern Covered Member ID Kern Member ID Guarantor Name 04/15/2024 1 [place] Eddi Gallego [id number] Eddi Gallego 04/15/2024 2 [employer] (MEDICARE SUPPLEMENT) Eddi Gallego [id number] Eddi Gallego Notes Date Note Type Note Provider Name and Address Organization Details Recorded Time 04/15/2024 text/html Patient Name: Rhoda freeman LashondaDate Of Service: Saturday ( 04.15.2024 ): 1955 [...] Systemic Symptoms:none Medication Reconciliation: from medication list. Pclvzrqgmyl98/24/2023: Carotid Doppler showed less than 50% stenosis [...] offered to be evaluated and instructed by advertising display rotator on weight loss diet. Active Medication ListMetoprolol [...] INFLUENZA( ) 2020-03 PREVNAR 13 GC( ) 2020-07 COVID PFIZER( ) 2021-03 PNEUMOVAX( ) 2023-02 RSV(X) 2023-02 COVID BOOSTER PFIZER( ) 2021-09 DTAP( ) 2021- TDAP Surgical Nayirtg2623-49 Nasal Qrcpve1021-24 Rt. [id number] LAD Drug Eluting Stent Preventative Testing( ) [...] 4 prostate cancer. Roland Ojeda MD [address] [facility], [facility] [address], [place], [address], [place] [facility] [employer] 04/15/2024 15:05:56
--- OUTSIDE RECORDS SUMMARY | 2024-05-17 13:01 | XMS_ITS | Encounter Summary ---
Author Organization [facility] Address [address] [place] [address] Care Team Providers Care Disulfurizer Tender Name Role Phone Unavailable Primary Care Provider Unavailabl e Encounter Details Date Type Department Care Team (Late st Contact Info) Description 11/19/2023 External Device Data ST[place] ABSTRACTION Provider, Abstract NO ADDRESS ON FILE Social History Tobacco Use Types Packs/Day Years Used Date Smoking Tobacco: Never Assessed Sex and Gender Information Value Date Recorded Sex Assigned at Not on file Gender Identity Not on file Sexual Orientation Not on file documented as of this encounter Plan of Treatment Not on file documented as of this encounter Visit Diagnoses Not on filedocumented in this encounter
--- OUTSIDE RECORDS SUMMARY | 2024-05-17 13:01 | XMS_ITS | Referral Summary ---
Author Organization [facility] Address [address] [facility] [address] [place] [address] Care Team Providers Care Tax Services Professional Name Role Phone Unavailable Primary Care Provider Unavailabl e Source Comments [facility],non-owned Affiliates and Associated Physician Practices is amultiple site organization consisting of ambulatory clinics and hospital sitesin [place], [place], [place] and [place]. This disclosure is being madepursuant to the Care Everywhere program and may not contain all information available regarding this patient. Last updated 18.[facility] [employer] Allergies No known active allergies Immunizations Name Administration Dates Next Due INFLUENZA VACCINE, QUADR. (F LUZONE; FLULAVAL; FLUARIX; AFLURIA QUADRIVALENT; 6MO+), 0.5 ML (IIV4) 03/24/2019 Social History Tobacco Use Types Packs/Day Years Used Date Smoking Tobacco: Never Assessed Sex and Gender Information Value Date Recorded Sex Assigned at Not on file Gender Identity Not on file Sexual Orientation Not on file Plan of Treatment Not on file
--- OUTSIDE RECORDS SUMMARY | 2024-05-17 13:01 | XMS_ITS | Encounter Summary ---
Author Organization [facility] Address [address] [place] [address] Care Team Providers Care Title One Reading Teacher Name Role Phone Unavailable Primary Care Provider Unavailabl e Encounter Details Date Type Department Care Team (Late st Contact Info) Description 12/10/2023 External Device Data STL ABSTRACTION Provider, Abstract [...]
--- OUTSIDE RECORDS SUMMARY | 2024-05-17 13:01 | XMS_ITS | Encounter Summary ---
Author Organization [facility] Address [address] [place] [address] Care Team Providers Care Jacquard Loom Carpet Weaver Name Role Phone Unavailable Primary Care Provider Unavailabl e Encounter Details Date Type Department Care Team (Late st Contact Info) Description 12/03/2023 External Device Data STL ABSTRACTION Provider, Abstract [...]
--- OUTSIDE RECORDS SUMMARY | 2024-05-17 13:01 | XMS_ITS | Encounter Summary ---
Author Organization [facility] Address [address] [place] [address] Care Team Providers Care History Tutor Name Role Phone Unavailable Primary Care Provider Unavailabl e Encounter Details Date Type Department Care Team (Late st Contact Info) Description 02/04/2024 External Device Data STL ABSTRACTION Provider, Abstract [...]
--- OUTSIDE RECORDS SUMMARY | 2024-05-17 13:01 | XMS_ITS | Encounter Summary ---
Author Organization [facility] Address [address] [place] [address] Care Team Providers Care Hvac Mechanical Engineer Name Role Phone Unavailable Primary Care Provider Unavailabl e Reason for Visit * Reason Comments Imm Inj Encounter Details Date Type Department Care Team (Late st Contact Info) Description 03/24/2019 3:00 PM MIRROR INSTALLER Office Visit [facility] [address] [place] [address] Provider, Lori Exp [address] Need for vaccination (Primary Dx) Social History Tobacco Use Types Packs/Day Years Used Date Smoking Tobacco: Never Assessed Sex and Gender Information Value Date Recorded Sex Assigned at Not on file Gender Identity Not on file Sexual Orientation Not on file documented as of this encounter Progress Notes * Jennifer Diaz APRN-CNP - 03/24/2019 3:19 PM CST Images from the original note were not included. Patient here for influenza vaccine today. Allergies reviewed. Vaccine consent signed, reviewed withpatient, and scanned into record. Education materials provided to patient. Patient tolerated well. Jennifer Diaz DNP, [employer] NON MEDICAL-BC OR INSTALLER documented in this encounter Plan of Treatment Not on file documented as of this encounter Visit Diagnoses Diagnosis Need for vaccination- Primary Need for prophylactic vaccination and inoculation against unspecified single disease documented in this encounter
--- OUTSIDE RECORDS SUMMARY | 2024-05-17 13:01 | XMS_ITS | Clinical Summary ---
Author Organization [facility] Address [address] [place] [address] Care Team Providers Care Didactic Instructor Name Role Phone Unavailable Primary Care Provider Unavailabl e Source Comments [facility],non-owned Affiliates and Associated Physician Practices is amultiple site organization consisting of ambulatory clinics and hospital sitesin [place], [place], [place] and [place]. This disclosure is being madepursuant to the Care Everywhere program and may not contain all information available regarding this patient. Last updated 18.[facility] [employer] Allergies No known active allergies Immunizations Name [...] Health Maintenance Due Date Last Done Comments COLOGUARD (AGES 45-75) - COL ON CA SCREENING 1955 COLON MONITORING 1955 COLONOSCOPY - COLON CA SCREENING 1953 CT COLONOGRAPHY - COLON CA SCREENING 1955 Colorectal Cancer Screening 1955 FIT - COLON CA SCREENING 1955 FLEX SIG - COLON CA SCREENING 1955 LIPID TESTING 1955 MEDICARE AWV ? 12 MONTHS 1955 HEPATITIS C SCREENING 12/11/1971 DTAP/TDAP/TD VACCINES (1 - Tdap) 1972 ZOSTER VACCINE (1 of 2) 12/16/2003 PNEUMOCOCCAL VACCINE 50+ (1 of 1 - PCV) 2018 COVID-19 VACCINE (2023-2 5 season) 2024 INFLUENZA VACCINE (#1) 2024 9, 04/17/2018 DEPRESSION SCREENING 05/06/2024 Respiratory Syncytial Virus (RSV) Vaccine Pt: or over 60 yrs (1 - 1-dose 75+ series) 2028 HEPATITIS B VACCINE Aged Out No longe r eligible based on patient's age to complete this topic HIB VACCINE Aged Out No longer eligi ble based on patient's age to complete this topic HPV VACCINE Aged Out No longer eligi ble based on patient's age to complete this topic MENINGOCOCCAL VACCINE Aged Out No yanick yani eligible based on patient's age to complete this topic
--- OUTSIDE RECORDS SUMMARY | 2024-05-17 13:01 | XMS_ITS | Encounter Summary ---
Author Organization [facility] Address [address] [place] [address] Care Team Providers Care Residential Treatment Counselor Name Role Phone Unavailable Primary Care Provider Unavailabl e Encounter Details Date Type Department Care Team (Late st Contact Info) Description 08/01/2020 Orders Only [facility] - COVID Vax [address] [place] [address] John Quintanilla MD [address] [facility] [address] [place] [address] Need for vaccination Social History Tobacco Use Types Packs/Day Years Used Date Smoking Tobacco: Never Assessed Sex and Gender Information Value Date Recorded Sex Assigned at Not on file Gender Identity Not on file Sexual Orientation Not on file documented as of this encounter Plan of Treatment Not on file documented as of this encounter Visit Diagnoses Diagnosis Need for vaccination Need for prophylactic vaccination and inoculation against unspecified single disease documented in this encounter
--- OUTSIDE RECORDS SUMMARY | 2024-05-17 13:01 | XMS_ITS | Encounter Summary ---
Author Organization [facility] Address [address] [place] [address] Care Team Providers Care Inspector Outside Steam Distribution Name Role Phone Unavailable Primary Care Provider [...]
--- OUTSIDE RECORDS SUMMARY | 2024-05-17 13:01 | XMS_ITS | Encounter Summary ---
Author Organization [facility] Address [address] [place] [address] Care Team Providers Care Consignee Name Role Phone Unavailable Primary Care Provider Unavailabl e Encounter Details Date Type Department Care Team (Late st Contact Info) Description 12/31/2023 External Device Data STL ABSTRACTION Provider, Abstract [...]
--- OUTSIDE RECORDS SUMMARY | 2024-05-17 13:01 | XMS_ITS | Encounter Summary ---
Author Organization [facility] Address [address] [place] [address] Care Team Providers Care Air Quality Specialist Name Role Phone Unavailable Primary Care Provider Unavailabl e Encounter Details Date Type Department Care Team (Late st Contact Info) Description 02/18/2024 External Device Data STL ABSTRACTION [...]
--- OUTSIDE RECORDS SUMMARY | 2024-05-17 13:01 | XMS_ITS | Encounter Summary ---
Author Organization [facility] Address [address] [place] [address] Care Team Providers Care Early Childhood Assistant Name Role Phone Unavailable Primary Care Provider Unavailabl e Encounter Details Date Type Department Care Team (Late st Contact Info) Description 01/01/2024 External Device Data STL ABSTRACTION Provider, Abstract [...]
--- OUTSIDE RECORDS SUMMARY | 2024-05-17 13:01 | XMS_ITS | Encounter Summary ---
Author Organization [facility] Address [address] [place] [address] Care Team Providers Care Secondary School Registrar Name Role Phone Unavailable Primary Care Provider Unavailabl e Encounter Details Date Type Department Care Team (Late st Contact Info) Description 12/26/2023 External Device Data STL ABSTRACTION Provider, Abstract [...]
--- OUTSIDE RECORDS SUMMARY | 2024-05-17 13:01 | XMS_ITS | Encounter Summary ---
Author Organization [facility] Address [address] [place] [address] Care Team Providers Care Cement Boat And Barge Loader Name Role Phone Unavailable Primary Care Provider [...]
--- OUTSIDE RECORDS SUMMARY | 2024-05-17 13:01 | XMS_ITS | CONTINUITY OF CARE DOCUMENT ---
Author Name marcyaaron marcyaaron Address Unknown Organization [facility] Address [address] [place] [address] Phone [phone] Care Team Providers Care Auto Glass Installer Name Role Phone Braxton Castro MD Unavailable Braxton Castro MD Unavailable WILLIAM THAKKAR MD Unavailable PROBLEMS Condition Status Date Provider Notes Essential hypertension active Braxton Castro MD Claudication bilateral completed 5 - Braxton Castro MD Dizziness completed - Braxton Castro MD Rash completed - Braxton Castro MD Obesity active Braxton Castro MD Dyslipidemia active Braxton Castro MD CAD (coronary artery disease) active Braxton Castro MD Angina, unstable completed - Braxton Castro MD ENCOUNTERS Date Type Provider Location Encounter Diag nosis - In-person encounter Office Visit Braxton Castro MD [facility] - In-person encounter Office Visit [facility] [facility] Angina, unstableClaudication bilateralDizzinessRash - In-person encounter Office Visit Braxton Castro MD [facility] - In-person encounter Office Visit Braxton Castro MD [facility] - In-person encounter Office Visit [facility] [place] [facility] CAD (coronary artery disease)DyslipidemiaEssentia l hypertensionObesity VITAL SIGNS Date Observation Value Provider Body Mass Index (Ratio) 41.43 kg/m2 Bryan Castro MD blood pressure, cuff size large Ke rri Gruenekleberzoraida blood pressure, diastolic 90 mm[Hg] Ke rri Celinenenfzoraida blood pressure, systolic 140 mm[Hg] Britany ri Elizabeth oxygen saturation, oximetry 98 % Keara Elizabeth respiratory rate E&M 12 /min Keara Zambrano johnny pulse rate 77 /min Keara Aristeomiazelda dominguezer weight E&M 249 [lb_av] Keara Celinenenfe angelicaer height E&M 65 [in_i] Keara Aristeomianfdennys dominguezer Body Mass Index (Ratio) 41.93 kg/m2 Bryan Castro MD blood pressure, diastolic 78 mm[Hg] Ami teran Alvarez blood pressure, systolic 140 mm[Hg] River helle Skandia oxygen saturation, oximetry 97 % Shaina Alvarez blood pressure, cuff size large Ami Alvarez pulse rate 81 /min Shaina fuller weight E&M 252 [lb_av] Shaina fuller respiratory rate E&M 14 /min Consuelo Guerraand height E&M 65 [in_i] Shaina fuller Body Mass Index (Ratio) 47.09 kg/m2 Bryan Castro MD blood pressure, diastolic 89 mm[Hg] Mi jeffry Alvarez blood pressure, systolic 132 mm[Hg] River helle Skandia oxygen saturation, oximetry 95 % Shaina Alvarez pulse rate 85 /min Shaina Zavaleta alina respiratory rate E&M 16 /min Consuelo noyola Alvarez blood pressure, cuff size large Ami Alvarez weight E&M 283 [lb_av] Shaina fuller height E&M 65 [in_i] Shaina Zavaleta alina Body Mass Index (Ratio) 48.92 kg/m2 Bryan Castro MD respiratory rate E&M 20 /min Ngozi Cummins pulse rate 64 /min Ngozi Cummins blood pressure, cuff size regular nadja Cummins blood pressure, diastolic 93 mm[Hg] nadja Cummins blood pressure, systolic 145 mm[Hg] She rrvandana Cummins oxygen saturation, oximetry 97 % Ngozi Cummins height E&M 65 [in_i] Ngozi Cummins weight E&M 294 [lb_av] Ngozi Cummins pulse rate 69 /min Ngozi Cummins blood pressure, cuff size regular nadja Cummins blood pressure, diastolic 94 mm[Hg] nadja Cummins blood pressure, systolic 165 mm[Hg] She miriam Cummins oxygen saturation, oximetry 98 % Ngozi Cummins respiratory rate E&M 20 /min Ngozi Cummins weight E&M 299 [lb_av] Ngozi Cummins ALLERGIES No Known Drug Allergies HISTORY OF MEDICATION USE Medication Status Instructions Dates Provider Indications Com ments ezetimibe 10 mg tablet active TAKE 1 TABLET BY MOUTH EVERY DAY Esperanza Rushing clopidogrel 75 mg tablet active Take 1 tablet by mouth once a day Keara Johnson atorvastatin 20 mg tablet active TAKE 1 TABLET BY MOUTH DAILY Braxton Castro MD Zetia 10 mg tablet completed Take 1 tablet by mouth once a day - Esperanza Rushing clopidogrel 75 mg tablet completed - Keara Johnson atorvastatin 40 mg tablet completed - Braxton Castro MD aspirin 81 mg tablet,chewable active CHEW AND SWALLOW 1 TABLET BY MOUTH EVERY DAY Braxton Castro MD metoprolol tartrate 50 mg tablet active Take 1 tablet by mouth twice daily Keara Johnson tamsulosin 0.4 mg capsule active TAKE 1 CAPSULE BY MOUTH EVERY DAY Keara Johnson lisinopril 40 mg tablet active Take 1 tablet by mouth once a day Keara Johnson SOCIAL HISTORY Date Observation Value Provider smoking status Never smoker Shaina Guerra and smoking status Never smoker Shaina Guerra and smoking status Never smoker Ngozi Cummins INSURANCE PROVIDERS Payer name Policy type / Coverage type [place] red [place] B Medicare [id number] Q1 Labs [id number] ADVANCE DIRECTIVES Name Date DISCUSSED - NO DECISION MADE TREATMENT PLAN Date Name Performer [id number],S, Braxton aragon MD [id number],S,No signifcant PAD on duplex Braxton Castro MD [id number],S, Braxton aragon MD [id number],C,Resolved Bryan Castro MD [id number],S, Braxton aragon MD [id number],S, Braxton aragon MD [id number],S, Braxton aragon MD [id number],N,Possible medi cation side effect. Braxton Castro MD [id number],SBraxton MD [id number],SBraxton MD [id number],W, Braxton aragon MD [id number],N, Braxton aragon MD [id number],S,s/p pLAD PCI wit 4.0X16 Syndergy Braxton Castro MD Cardiology Braxton Castro MD Cardiology Braxton Castro MD Cardiology Braxton Castro MD Cardiology Braxton Castro MD Cardiology Braxton Castro MD Cardiology Braxton Castro MD Cardiology Braxton Castro MD Cardiology Braxton Castro MD Cardiology Braxton Castro MD Cardiology:No signifcant PAD on duplex Braxton Castro MD Cardiology Braxton Castro MD Cardiology:Resolved Braxton aragon MD Cardiology Braxton Castro MD Cardiology Braxton Castro MD Cardiology Braxton Castro MD Cardiology:Possible medication s miriam effect. Braxton Castro MD Cardiology Braxton Castro MD Cardiology Braxton Castro MD Cardiology Braxton Castro MD Cardiology Braxton Castro MD Cardiology:s/p pLAD PCI wit 4.0X 16 Syndergy Braxton Castro MD Date Name Arterial Duplex Bi-L ower EX Carotid Duplex Bilat eral HISTORY OF PROCEDURES Procedure Date Procedure Name Provider Procedure Notes S tatus EKG Braxton Castro MD complete d
--- OUTSIDE RECORDS SUMMARY | 2024-05-17 13:01 | XMS_ITS | Encounter Summary ---
Author Organization [facility] Address [address] [place] [address] Care Team Providers Care Loom Winder Tender Name Role Phone Unavailable Primary Care Provider Unavailabl e Encounter Details Date Type Department Care Team (Late st Contact Info) Description 11/05/2023 External Device Data STL ABSTRACTION Provider, Abstract [...]
--- OUTSIDE RECORDS SUMMARY | 2024-05-17 13:01 | XMS_ITS | Encounter Summary ---
Author Organization [facility] Address [address] [place] [address] Care Team Providers Care Process Improvement Manager Name Role Phone Unavailable Primary Care Provider [...]
--- OUTSIDE RECORDS SUMMARY | 2024-05-17 13:01 | XMS_ITS | Encounter Summary ---
Author Organization [facility] Address [address] [place] [address] Care Team Providers Care Electrical Engineering Drafting Officer Name Role Phone Unavailable Primary Care Provider [...]
--- OUTSIDE RECORDS SUMMARY | 2024-05-17 13:02 | XMS_ITS | Encounter Summary ---
Author Organization [facility] Address [address] [place] [address] Care Team Providers Care Health Sciences Department Chair Name Role Phone Unavailable Primary Care Provider Unavailabl e Encounter Details Date Type Department Care Team (Late st Contact Info) Description 09/24/2023 External Device Data STL ABSTRACTION Provider, Abstract [...]
--- OUTSIDE RECORDS SUMMARY | 2024-05-17 13:02 | XMS_ITS | Encounter Summary ---
Author Organization [facility] Address [address] [place] [address] Care Team Providers Care Cardiac Nurse Practitioner Name Role Phone Unavailable Primary Care Provider [...]
--- OUTSIDE RECORDS SUMMARY | 2024-05-17 13:02 | XMS_ITS | Encounter Summary ---
Author Organization [facility] Address [address] [place] [address] Care Team Providers Care Weapons Officer Name Role Phone Unavailable Primary Care Provider Unavailabl e Reason for Visit * CT Scan (Routine) - Closed Specialty Diagnoses / Procedures Referred By Contac t Referred To Contact Radiology Diagnoses Sinusitis, unspecified chronicity, unspecified location Procedures CT SINUS FACIAL BONES WO CONTRAST CT SINUS FACIAL BONES WO CONTRAST CT SINUS STEALTH PROTOCOL Mark Luu MD [address] [place] [address] [address] Referral ID Status Reason Start Date Expiration Date Visits Re quested Visits Authorized [id number] Closed 09/16/2023 10/16/2024 1 1 Encounter Details Date Type Department Care Team (Latest Contact Info) Description 09/20/2023 2:15 PM CDT [facility]illary [facility] [address] [address] [place], External Provider [address] [place] [phone] Sinusitis, unspecified chronicity, unspecified location Social History Tobacco Use Types Packs/Day Years Used Date Smoking Tobacco: Never Assessed Sex and Gender Information Value Date Recorded Sex Assigned at Not on file Gender Identity Not on file Sexual Orientation Not on file documented as of this encounter Plan of Treatment Not on file documented as of this encounter Procedures Procedure Name Priority Date/Time Associated Diagnosis Comments CT SINUS FACIAL BONES WO CONTRAST Routine 09/20/2023 2:15 PM CDT Sinusitis, unspecified chronicity, unspecified location documented in this encounter Results * CT SINUS FACIAL BONES WO CONTRAST (09/20/2023 2:15 PM CDT) Anatomical Region Laterality Modality Head Computed Tomogra phy 09/20/2023 1:59 PM CDT Impressions 09/20/2023 2:19 PM CDT IMPRESSION: ?? 1. Pansinusitis. 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 Narrative 09/20/2023 2:19 PM CDT EXAM: CT SINUS FACIAL BONES WO CONTRAST DATE: 09/20/2023 HISTORY: Sinusitis, unspecified chronicity, unspecified location COMPARISON: None. TECHNIQUE: Axial images of the maxillofacial region with multiplanar reconstructions. Radiation dose reduction technique was utilized. FINDINGS: There is a 1 cm osteoid osteoma in the left ethmoid sinuses. Mucous membrane thickening is noted in the ethmoid, maxillary common sphenoid sinuses with partial opacification of the ethmoid sinuses seen. There appear to be multiple cysts/polyps in the paranasal sinuses. The frontal sinuses and mastoid air cells are not opacified. The nasal septum is midline. The ostiomeatal units are not occluded. ?? The globes and orbital rims are intact. ?? Multiplanar reconstructed views were utilized making above findings. Procedure Note Sesar Alcantara MD - 09/20/2023 EXAM: CT SINUS FACIAL BONES WO CONTRAST DATE: 09/20/2023 HISTORY: Sinusitis, unspecified chronicity, unspecified location COMPARISON: None. TECHNIQUE: Axial images of the maxillofacial region with multiplanar reconstructions. Radiation dose reduction technique was utilized. FINDINGS: There is a 1 cm osteoid osteoma in the left ethmoid sinuses. Mucous membrane thickening is noted in the ethmoid, maxillary common sphenoid sinuses with partial opacification of the ethmoid sinuses seen. There appear to be multiple cysts/polyps in the paranasal sinuses. The frontal sinuses and mastoid air cells are not opacified. The nasal septum is midline. The ostiomeatal units are not occluded. The globes and orbital rims are intact. Multiplanar reconstructed views were utilized making above findings. IMPRESSION: 1. Pansinusitis. 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 Mark Luu MD CT ORDERABLES documented in this encounter Visit Diagnoses Diagnosis Sinusitis, unspecified chronicity, unspecified location documented in this encounter
--- OUTSIDE RECORDS SUMMARY | 2024-05-17 13:02 | XMS_ITS | Encounter Summary ---
Author Organization [employer] [facility] Address [address] [place] [address] Care Team Providers Care Truck Chauffeur Name Role Phone Unavailable Primary Care Provider Unavailabl e Encounter Details Date Type Department Care Team (Late st Contact Info) Description 01/23/2006 Outpatient Historical [facility] Ian Kenyon MD [address] [place], [place] [id number] [place], Authorized P NO ADDRESS ON FILE Other Dyspnea and Respiratory Abnormality (Primary Dx) Social History Tobacco Use Types Packs/Day Years Used Date Smoking Tobacco: Never Assessed Sex and Gender Information Value Date Recorded Sex Assigned at Not on file Gender Identity Not on file Sexual Orientation Not on file documented as of this encounter Plan of Treatment Not on file documented as of this encounter Procedures Procedure Name Priority Date/Time Associated Diagnosis Comments TROPONIN (W/REFLEX CKMB/CK) Routine 01/23/2006 12:17 PM CDT CBC WITH DIFFERENTIAL Routine 01/23/2006 12:17 PM CDT CBC WITH DIFFERENTIAL Routine 01/23/2006 12:17 PM CDT BRAIN NATRIURETIC PEPTIDE, BNP OR PROBNP Routine 01/23/2006 12:17 PM CDT LIPASE Routine 01/23/2006 12:17 PM CDT AMYLASE Routine 01/23/2006 12:17 PM CDT COMPREHENSIVE METABOLIC PANEL Routine 01/23/2006 12:17 PM CDT ED HOLD Routine 01/23/2006 11:58 AM CDT documented in this encounter Results * TROPONIN (W/REFLEX CKMB/CK) (01/23/2006 12:17 PM CDT) TROPONIN T <0.01 <=0.03 ng/mL INTERFACE SYSTEM TROPONIN T INTERP Negative INTERFACE SYSTEM 01/23/2006 12:1 7 PM CDT Ian Kenyon MD CHEMISTRY ORDERABLES Performing Organization Address [facility] Phone Number INTERFACE SYSTEM Refer to clinic/hospital department * CBC WITH DIFFERENTIAL (01/23/2006 12:17 PM CDT) NEUTROPHILS 60 45 - 70 % INTERFAC E SYSTEM LYMPHOCYTES 27 16 - 45 % INTERFAC E SYSTEM MONOCYTES 9 3 - 13 % INTERFACE SYSTEM EOSINOPHILS 3 0 - 7 % INTERFAC E SYSTEM BASOPHILS 1 0 - 2 % INTERFACE SYSTEM NEUTROPHIL ABSOLUTE 5.01 1.90 - 7.00 K/uL INTERFACE SYSTEM LYMPHOCYTE ABSOLUTE 2.28 0.70 - 4.50 K/uL INTERFACE SYSTEM MONOCYTE ABSOLUTE 0.73 0.10 - 1.30 K/uL INTERFACE SYSTEM EOSINOPHIL ABSOLUTE 0.25 0.00 - 0.70 K/uL INTERFACE SYSTEM BASOPHILS ABSOLUTE 0.04 0.00 - 0.20 K/uL INTERFACE SYSTEM 01/23/2006 12:1 7 PM CDT Ian Kenyon MD HEMATOLOGY ORDERABLE S Performing Organization Address [facility] Phone Number INTERFACE SYSTEM Refer to clinic/hospital department * CBC WITH DIFFERENTIAL (01/23/2006 12:17 PM CDT) WBC 8.3 4.0 - 9.8 K/uL INTERFACE SYSTEM RBC 4.71 4.50 - 5.40 M/uL INTERFACE SYSTEM HEMOGLOBIN 13.8 13.6 - 16.5 g/dL INTERFACE SYSTEM HEMATOCRIT 41.0 40.0 - 48.0 % INTERFACE SYSTEM MCV 87.0 82.0 - 99.0 fL INTERFACE SYSTEM MCH 29.3 27.2 - 32.6 pg INTERFACE SYSTEM MCHC 33.7 31.5 - 35.5 % INTERFACE SYSTEM RDW 14.2 11.5 - 14.5 % INTERFACE SYSTEM RDW-STDEV 45.8 37.1 - 48.7 fL INTERFACE SYSTEM PLATELETS 300 140 - 350 K/uL INTERFACE SYSTEM MPV 10.4 9.3 - 12.4 fL INTERFACE SYSTEM 01/23/2006 12:1 7 PM CDT Ian Kenyon MD HEMATOLOGY ORDERABLE S Performing Organization Address [facility] Phone Number INTERFACE SYSTEM Refer to clinic/hospital department * LIPASE (01/23/2006 12:17 PM CDT) LIPASE 28 13 - 60 U/L INTERFAC E SYSTEM 01/23/2006 12:1 7 PM CDT Ian Kenyon MD CHEMISTRY ORDERABLES Performing Organization Address [facility] Phone Number INTERFACE SYSTEM Refer to clinic/hospital department * AMYLASE (01/23/2006 12:17 PM CDT) AMYLASE 31 28 - 100 U/L INTERFACE SYSTEM 01/23/2006 12:1 7 PM CDT Ian Kenyon MD CHEMISTRY ORDERABLES Performing Organization Address [facility] Phone Number INTERFACE SYSTEM Refer to clinic/hospital department * BRAIN NATRIURETIC PEPTIDE, BNP OR PROBNP (01/23/2006 12:17 PM CDT) PRO-BNP 25 pg/mL INTERFACE SYSTEM Comment: proBNP Interpretation: Reference values for screening purposes based on pop singer's recommendation: Patients less than 75 years: <125 pg/mL Patients 75 years and older: <450 pg/mL Reference values for determination of acute congestive heart failure in dyspneic patients based on PRIDE study (AM J Cardiol 2005;95:948): Patients less than 50 years: <450 pg/mL (Negative predictive value= 99%) Patients 50 years and older: <900 pg/mL (Negative predictive value= 92%) ?? Rule out cutpoint, all ages: <300 pg/mL (Negative predictive value= 99% ) 01/23/2006 12:1 7 PM CDT Ian Kenyon MD CHEMISTRY ORDERABLES Performing Organization Address [facility] Phone Number INTERFACE SYSTEM Refer to clinic/hospital department * (ABNORMAL) COMPREHENSIVE METABOLIC PANEL (01/23/2006 12:17 PM CDT) GLUCOSE 106(H) 65 - 99 mg/dL INTERFACE SYSTEM CREATININE 1.0 0.5 - 1.3 mg/dL INTERFACE SYSTEM CALCIUM 9.7 8.4 - 10.2 mg/dL INTERFACE SYSTEM ALKALINE PHOSPHATASE 94 40 - 129 U/L INTERFACE SYSTEM AST 24 12 - 38 U/L INTERFACE SYSTEM ALT 34 0 - 41 U/L INTERFACE SYSTEM TOTAL PROTEIN 8.1 6.3 - 8.6 g/dL INTERFACE SYSTEM ALBUMIN 4.9(H) 3.4 - 4.8 g/dL INTERFACE SYSTEM BILIRUBIN TOTAL 0.4 0.2 - 1.0 mg/dL INTERFACE SYSTEM BUN 17 6 - 20 mg/dL INTERFACE SYSTEM SODIUM 139 135 - 145 mmol/L INTERFACE SYSTEM POTASSIUM 3.6 3.5 - 4.9 mmol/L INTERFACE SYSTEM CHLORIDE 102 96 - 108 mmol/L INTERFACE SYSTEM CO2 25 22 - 30 mmol/L INTERFACE SYSTEM 01/23/2006 12:1 7 PM CDT Ian Kenyon MD CHEMISTRY ORDERABLES Performing Organization Address [facility] Phone Number INTERFACE SYSTEM Refer to clinic/hospital department * ED HOLD (01/23/2006 11:58 AM CDT) SPECIMEN HOLD, BLOOD 7 days INTERFACE SYSTEM 01/23/2006 11:5 8 AM CDT Historical Provider CHEMISTRY ORDERABLES Performing Organization Address [facility] Phone Number INTERFACE SYSTEM Refer to clinic/hospital department documented in this encounter Visit Diagnoses Diagnosis Other dyspnea and respiratory abnormality- Primary documented in this encounter
--- OUTSIDE RECORDS SUMMARY | 2024-05-17 13:02 | XMS_ITS | Encounter Summary ---
Author Organization [facility] Address [address] [place] [address] Care Team Providers Care Sample Box Maker Name Role Phone Unavailable Primary Care Provider [...]
--- OUTSIDE RECORDS SUMMARY | 2024-05-17 13:02 | XMS_ITS | Encounter Summary ---
Author Organization [facility] Address [address] [place] [address] Care Team Providers Care Brass Polisher Name Role Phone Unavailable Primary Care Provider Unavailabl e Encounter Details Date Type Department Care Team (Late st Contact Info) Description 01/23/2006 Outpatient Historical [facility] Support [facility]. ([facility]) [address] [place] [phone] Shun Farmer MD NO ADDRESS ON FILE Social History Tobacco [...]
== END 2024-05-12 11:45 | disposition home or self-care (01) ==
LOC: ANHSURGERY 07:16 → ANH3MED 14:52
PROVIDERS: Orthopaedic Surgery; PCP Internal Medicine; Visit Provider Nurse Practitioner Family
PROC: (CPT 27447; principal; 2024-05-11 10:00)
DX: M17.11 Unilateral primary osteoarthritis, right knee (principal); G89.18 Other acute postprocedural pain; I10 Essential (primary) hypertension; G47.33 Obstructive sleep apnea (adult) (pediatric); N40.0 Benign prostatic hyperplasia without lower urinary tract symptoms; F32.A Depression, unspecified; E66.9 Obesity, unspecified; Z68.38 Body mass index [BMI] 38.0-38.9, adult; Z79.82 Long term (current) use of aspirin; Z79.02 Long term (current) use of antithrombotics/antiplatelets; Z79.85 Long-term (current) use of injectable non-insulin antidiabetic drugs; Z79.1 Long term (current) use of non-steroidal anti-inflammatories (NSAID); Z99.89 Dependence on other enabling machines and devices; Z98.890 Other specified postprocedural states; Z95.5 Presence of coronary angioplasty implant and graft; Z87.891 Personal history of nicotine dependence; Z80.42 Family history of malignant neoplasm of prostate; Z80.43 Family history of malignant neoplasm of testis; Z82.49 Family history of ischemic heart disease and other diseases of the circulatory system
CPT/HCPCS: 64447; 27447; 36415; 73560; 80048; 85025; 97110; 97161; 97165; 97530; 97535; A9270; C1713; C1776; J0171; J0690; J1100; J1885; J2003; J2250; J2270; J2405; J2704; J2795; J3010; J7120

== ENCOUNTER 2024-10-22 07:55 | Outpatient (CLI) | payer MEDICARE, OTHER, SELFPAY ==
--- OUTSIDE RECORDS SUMMARY | 2024-10-22 08:00 | XMS_ITS | Clinical Summary ---
Author Organization [facility] Address [address] [place] [address] Care Team Providers Care Cash Management Clerk Name Role Phone Unavailable Primary Care Provider Unavailabl e Encounters Date Type Department Care Team Description 08/18/2024 External Device Data STL ABSTRACTION Provider, Abstract 08/11/2024 External Device Data ST[facility] ABSTRACTION Provider, Abstract 07/22/2024 External Device Data ST[facility] ABSTRACTION Provider, Abstract from Last 3 Months Social History Tobacco Use Types Packs/Day Years Used Date Smoking Tobacco: Never Assessed Sex and Gender Information Value Date Recorded Sex Assigned at Not on file 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 Gender Identity Not on file Sexual Orientation Not on file Plan of Treatment Health Maintenance Due Date Last Done Comments FIT-DNA Q 3 years 1998 FIT/FOBT Q 1 year 1998 Flex Sig/CT Colonography Q 5 years 1998 ZOSTER VACCINE (1 of 2) 12/16/2003 INFLUENZA VACCINE (#1) 2023 2, 02/05/2021, 03/24/2019, Additional history exists COLORECTAL SCREENING 12/17/2023 12/16/2013 Colorectal Cancer Screening 12/17/2023 RSV VACCINE (60+ or ) (1 - 1-dose 75+ series) 2028 DTAP/TDAP/TD VACCINES (2 - T d or Tdap) 09/28/2031 09/27/2021 PNEUMOCOCCAL VACCINE 50+ YEARS Completed 03/27/2021 , 03/14/2020 Insurance MEDICARE PART A AND B [employer]
--- OUTSIDE RECORDS SUMMARY | 2024-10-22 08:00 | XMS_ITS | CONTINUITY OF CARE DOCUMENT ---
Author Name marcyaaron marcyaaron Address Unknown Organization [facility] Address [address] [place] [address] Phone [phone] Care Team Providers Care Mapping Editor Name Role Phone Braxton Castro MD Unavailable [phone] Braxton Castro MD Unavailable [phone] WILLIAM THAKKAR MD Unavailable PROBLEMS Condition Status Date Provider Notes Angina, unstable completed - Braxton Castro MD CAD (coronary artery disease) active Braxton Castro MD Dyslipidemia active Braxton Castro MD Essential hypertension active Braxton Castro MD Obesity active Braxton Castro MD Claudication bilateral completed 5 - Braxton Castro MD Dizziness completed - Braxton Castro MD Rash completed - Braxton Castro MD ENCOUNTERS Date Type Provider Location Encounter Diag nosis - In-person encounter Office Visit Braxton [facility] - [facility]-person encounter Office Visit [facility] Angina, unstableClaudication bilateralDizzinessRash - In-person encounter Office Visit Braxton Castro [facility] - In-person encounter Office Visit Braxton Castro MD [facility] - In-person encounter Office Visit Braxton [...] blood pressure, systolic 140 mm[Hg] [place] oxygen saturation, oximetry 97 % Shaina Alvarez blood pressure, cuff size large Ami Alvarez pulse rate 81 /min Shaina fuller weight E&M 252 [lb_av] Shaina fuller respiratory rate E&M 14 /min Consuelo Guerraand height E&M 65 [in_i] Shaina fuller Body Mass Index (Ratio) 47.09 kg/m2 Bryan Castro MD blood pressure, diastolic 89 mm[Hg] Mi jeffry Alvarez blood pressure, systolic 132 mm[Hg] [place] oxygen saturation, oximetry 95 % Shaina Alvarez [...] Status Instructions Dates Provider Indications Com ments atorvastatin 20 mg tablet active TAKE 1 TABLET BY MOUTH EVERY DAY Abraham Brock ezetimibe 10 mg tablet active TAKE 1 TABLET BY MOUTH EVERY DAY Esperanza Nicholson clopidogrel 75 mg tablet active Take 1 tablet by mouth once a day Keara Johnson atorvastatin 20 mg tablet completed TAKE 1 TABLET BY MOUTH DAILY - Abraham Brock Zetia 10 mg tablet completed Take 1 tablet by mouth once a day - Esperanza Nicholson clopidogrel 75 mg tablet completed - Keara [...] Policy type / Coverage type [place] Medicare [id number] Topguest [id number] ADVANCE DIRECTIVES Name Date DISCUSSED - NO DECISION MADE TREATMENT PLAN Date Name Performer [id number],S, Braxton aragon MD [id number],S,No signifcant PAD on duplex Braxton Castro MD [id number],S, Braxton aragon MD [id number],C,Resolved Bryan Castro MD [id number],S, Braxton aragon MD [id number],S, Braxton aragon MD [id number],SBraxton MD [id number],N,Possible medi cation side effect. Braxton Castro MD [id number],SBraxton MD [id number],SBraxton MD [id number],W, Braxton aragon MD [id number],N, Braxton aragon MD [id number],S,s/p pLAD PCI wit 4.0X16 Syndergy Braxton Castro [...]
--- OUTSIDE RECORDS SUMMARY | 2024-10-22 08:01 | XMS_ITS | Encounter Summary ---
Author Organization [facility] Address [address] [place] [address] Care Team Providers Care Core Winding Operator Name Role Phone Unavailable Primary Care Provider Unavailabl e Encounter Details Date Type Department Care Team (Late st Contact Info) Description 01/23/[address] [facility] Support [facility] ([facility]) [address] 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
--- OUTSIDE RECORDS SUMMARY | 2024-10-22 08:01 | XMS_ITS | Clinical Summary ---
Author Organization [facility] Address [address] 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 This disclosure is being madepursuant to the Care Everywhere program and may not contain all information available regarding this patient. Last updated 18.[facility] [employer] Allergies No known active allergies Immunizations Immunization Administration Dates Next Due INFLUENZA VACCINE, QUADR. 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 Gender Identity Not on file Sexual Orientation [...] SCREENING 1955 LIPID TESTING 1955 MEDICARE AWV 12 MONTHS 1955 HEPATITIS C SCREENING 12/11/1971 DTAP/TDAP/TD VACCINES (1 - Tdap) 1972 PNEUMOCOCCAL VACCINE 50+ (1 of 1 - PCV) 12/16/2003 ZOSTER VACCINE (1 of 2) 12/16/2003 COVID-19 VACCINE (2023-2 5 season) 2024 DEPRESSION SCREENING 05/06/2024 INFLUENZA VACCINE (Season Ended) 2025 03/24/2019, 04/17/2018 Respiratory Syncytial Virus (RSV) Vaccine Pt: or [...] patient's age to complete this topic MENINGOCOCCAL (Group B) VACCINE SHARED DECISION-MAKING Aged Out No longer eligible based on patient's age to complete this topic MENINGOCOCCAL GROUPS A/C/Y/W VACCINE Aged Out No longer eligible b ased on patient's age to complete this topic Insurance [facility] MEDIC[facility] CASUALTY SELF PAY NO INSURANCE Member Subscriber Plan / Payer (Ef fective for All Dates) Name:Eddi Miranda Member ID:Not on file Relation to Subscriber:Not on file Name:EDDI MIRANDA Subscriber ID:Not on file (Home) Address: [address] [place] [id number] Payer ID:Not on file Group ID:Not on file Type:Self Pay Address: [place], [place]
--- OUTSIDE RECORDS SUMMARY | 2024-10-22 08:01 | XMS_ITS | Data Portability ---
Author Organization [facility] [employer], Main Office Address [address] [place] [address] Assessment No assessment recorded. Plan of Treatment Reminders Order Date Submit Date Provider Last Modified By Organization Details Last Modified Time Details Appointments None recorded . Lab HbA1c (hemoglo bin A1c), blood 025 08/27/19 25 [email or web address] [facility], [address] , [place], [address], 5 14:22:49 CBC w/ auto diff 025 08/27/19 25 [facility], [address] , [place], [address], 5 14:22:48 CMP, serum or plasma 025 08/27/19 25 [email or web address] [facility], [address] , [place], [address], 5 14:22:48 lipid panel, serum 025 08/27/19 25 [email or web address] [facility], [address] , [place], [address], 5 14:22:48 TSH, serum or plasma 025 08/27/19 25 [facility], [address] , [place], [address], 5 14:22:49 T4, free, serum 025 08/27/19 25 [email or web address] [facility], [address] , [place], [address], 5 14:22:49 PSA, serum or plasma 024 04/15/20 24 [email or web address] [facility], [address], [place], [address], 5 17:46:26 CBC w/ auto diff 024 04/15/20 24 MOOK [facility], [address], [place], [address], 4 08:50:58 CMP, serum or plasma 024 04/15/20 24 [email or web address] [facility], [address], [place], [address], 5 17:46:25 lipid panel, serum 024 04/15/20 24 [facility], [address], [place], [address], 5 17:46:25 TSH, serum or plasma 024 04/15/20 24 [email or web address] [facility], [address], [place], [address], 5 17:46:25 T4, free, serum 024 04/15/20 24 [facility], [address], [place], [address], 5 17:46:26 CMP, serum or plasma 024 12/25/19 24 MOOK [facility], [address], [place], [address], 4 09:40:01 lipid panel, serum 024 12/25/19 24 [email or web address] [facility], [address], [place], [address], 4 17:00:01 CBC w/ auto diff 024 12/25/19 24 MOOK [facility], [address], [place], [address], 4 03:07:23 CMP, serum or plasma 024 10/07/19 24 [email or web address], [address], [place], [address], 4 17:50:36 lipid panel, serum 024 10/07/19 24 [email or web address], [address], [place], [address], 4 17:50:36 CBC w/ auto diff 024 10/07/19 [email or web address], [address], [place], [address], 4 16:12:48 Referral None recorded . Procedures None recorded . Surgeries None recorded . Imaging None recorded . Medication Orders None recorded . Patient TargetsNo targets recorded. Patient Instructions Encounter Date Encounter Id Patient Instructions Last Modified By Organization Details Last Modified Time 08/28/2023 [id number] Coronary artery disease, hypertension, hyperlipidemia and obesity [...] with voice recognition software. Occasional wrong-word or s ound-a-like substitutions may have occurred due to the inherent limitations of voice recognition software. Read the chart carefully and recognize, using context, where substitutions have occurred. [email or web address] Not available 08/28/2023 14:49:37 10/07/2023 [id number] Follow-up mercado ry artery disease, hypertension, hyperlipidemia, [...] before surgery. Keep Appointment: Sat 01:30 PM [place] Portions of the record may have been created with voice recognition software. Occasional wrong-word or s ound-a-like substitutions may have occurred due to the inherent limitations of voice recognition software. Read the chart carefully and recognize, using context, where substitutions have occurred. [email or web address] Not available 10/07/2023 14:32:42 12/25/2023 [id number] dementia rating scale-2* [email or web address] Not available 12/25/2023 14:53:55 alcohol misuse* [email or web address] Not available 12/25/2023 14:53:55 depression screening* [email or web address] Not available 12/25/2023 14:53:55 Timed Up and Go test (TUG)* [email or web address] Not available 12/25/2023 14:53:54 multi-dimensiona l health assessment questionnaire* [email or web address] Not available 12/25/2023 14:53:55 advance care planning: care instructions [email or web address] Not available 12/25/2023 14:53:55 advance directiv es: care instructions [email or web address] Not available 12/25/2023 14:53:55 [place] Advance Directives [email or web address] Not available 12/25/2023 14:53:55 Personalized [facility] lt Plan and Screening Recommendations Advance Directives - Do you have one? No Info given Advance Directives - Do we have your advance directive on file in your health record? Primary Prevention/Intervent ion (prevents or decreases the chance of common diseases from occurring) Smoking Risk: Non Smoker Alcohol Misuse Screening: Negative Weight: Overweight try to lose 10% of your body weight Physical activity: Need more exercise/physical activity Nutrition: Average eat heart healthy diet Fall Risk (screened today): Low Vaccines Pneumococcal: No further needed Influenza: Your next one in the fall of this year Chronic Disease Risks Stroke: Intermediate Risk Active diagnosis, Continue current treatment plan Heart Attack: Intermediate Risk Active diagnosis, Continue current treatment plan Clogging of the Arteries: Intermediate Risk Active diagnosis, Continue current treatment plan Diabetes: Intermediate Risk Drastically limit sugar and products made with any type of flour (bread, pasta, cereal, cookies, crackers, etc.) Secondary Prevention/Intervent ion (detects treatable diseases before they may cause symptoms, disability, or ) Prostate Cancer Screening: recommended Colon Cancer Screening: Colonoscopy due 2031 Date Screening Last Performed: _2021___ Eye Disease Screening: Your next exam in: goes yearly Dementia Risk: Low I have no recommendations Depression Screening: Negative I have no recommendations [email or web address] Not available 12/25/2023 14:49:00 Medicare [facility] evaluation risk assessment stable. Follow-up for [...] with voice recognition software. Occasional wrong-word or s ound-a-like substitutions may have occurred due to the inherent limitations of voice recognition software. Read the chart carefully and recognize, using context, where substitutions have occurred. [email or web address] Not available 12/25/2023 14:53:32 04/15/2024 [id number] Follow-up for coronary artery disease, hypertension, hyperlipidemia [...] with voice recognition software. Occasional wrong-word or s ound-a-like substitutions may have occurred due to the inherent limitations of voice recognition software. Read the chart carefully and recognize, using context, where substitutions have occurred. Created: Roland Ojeda M.D. 04.15.2024 02:05 PM [email or web address] Not available 04/15/2024 15:05:39 08/26/2024 [id number] Coronary artery disease, hypertension, hyperlipidemia, obesity class two. Clinically stable. Otherwise doing well. Will check blood work consisting of CBC, CMP, lipid and thyroid. Continue on current Rx follow-up in four months. He is planning on moving [place] may be coming in need of a new physician. Follow Up: 4 Months Approximate Date: 12/24/2024 Portions of record are template driven. When necessary additional context will be provided. Additionally some portions have been created with voice recognition software. Occasional wrong-word or s ound-a-like substitutions may have occurred due to the inherent limitations of voice recognition software. Read the chart carefully and recognize, using context, where substitutions may have occurred. Created: Roland Ojeda M.D. 08.26.2024 02:16 PM [email or web address] Not available 08/26/2024 15:16:07 Reason for Referral None Reported. Results Created Date Observation Date Name Description Value Unit Range Abnormal Flag Note LastModifiedBy Organization Detail LastModifiedTime 10/23/19 24 10/23/2023 XR, knee No observ ation record ed. [address] [facility], [place], [address], 10/23/2023 15:50:55 05/11/19 25 05/11/2024 XR, knee No observ ation record ed. [address], [place], [address], 05/11/2024 14:44:23 Result Notes None recorded. Problems Name Problem SNOMED Code Status Onset Date Resolution Date Notes Provider Name and Address Organization Details Recorded Time Benign essential hypertensi on 0576506 Active Not Available [facility] 4 06:40:37 Acute sinusitis 62736215 Active 2021 Not Available [facility] 4 06:40:37 Morbid obesity 163400334 Active 2021 Not Available [facility] 4 06:40:37 Osteoarthr itis of knee 953183600 Active 2018 Not Available [facility] 4 06:40:37 Benign prostatic hyperplasi a 035880287 Active 2016 Not Available [facility] 4 06:40:37 Right upper quadrant pain 735983614 Active 2016 Not Available [facility] 4 06:40:37 Depressive disorder 73243121 Active Not Available [facility] 4 06:40:37 History of polyp of colon 146964725 Active 2019 Not Available [facility] 4 06:40:37 Hyperlipid emia 28138921 Active 2021 Not Available [facility] 4 06:40:37 Coronary arterioscl erosis 00951620 Active 2022 Not Available [facility] 4 06:40:37 Disorder of prostate 61573764 Active 2022 Not Available [facility] 4 06:40:37 Allergic rhinitis 95105077 Active 2023 Roland Ojeda MD [address] [facility] [address], [place], [address] , [employer] 4 16:54:54 Obese class II 2408212373590 05 Active 2023 Roland Ojeda MD [address] [facility], [facility] [address], [place], [address] , [facility] 4 14:27:20 Polyp of nasal cavity 943410037 Active 2023 Roland Ojeda MD [address] [facility], [facility] [address], [place], [address] , [employer] 4 14:49:11 Problem Notes None recorded. Procedures Surgical History Date Name Laterality Status Provider Name and Address Organization Details Recorded Time 12/25/19 Medicare Wellness CPT Code, subsequent completed [facility] [employer] 12/25/2023 14:41:02 12/25/19 Advanced Care Planning completed RASHEL Aguilar [facility] [employer] 12/25/2023 14:46:33 12/20/19 Medicare Wellness CPT Code, Initial completed RASHEL Aguilar Madeline [employer] 12/19/2022 14:39:06 12/17/19 colonoscopy completed Not Available [facility] 07/05/19 14:45:15 Imaging Results None recorded. Procedure Notes None recorded. Medical Equipment None Reported. Allergies Allergen ID Allergen Name Allergen Category Reaction Reaction Severity Criticality Documentation Date Start Date Code Code System Note Provider Name and Address Organization Details Recorded Time 67918 Actos medicatio n rash Not available Not available 07/04/2022 10683 2 RxNorm Not Available [facility] 3 14:49:50 Medications Name Sig Start Date Stop Date Status Note LastModified by Organization Details LastModified Time amoxicillin 500 mg capsule Take 1 capsule 3 times a day by oral route for 10 days. 09/20 completed Not Available Not Available Not Available atorvastati n 40 mg tablet TAKE 1 TABLET BY MOUTH EVERY DAY AT NIGHT 08/26 completed Not Available Not Available Not Available atorvastati n 20 mg tablet TAKE [...] TABLET BY MOUTH EVERY 4 HOURS NEEDED 08/26 completed Not Available Not Available Not Available lisinopril 20 mg tablet Take 1 tablet every day by oral route. 12/19 completed Not Available Not Available Not Available prednisone 20 mg tablet 40MG X 5 DAYS THEN 20MG X 5 DAYS ORALLY 08/26 completed Not Available Not Available Not Available methylpredn isolone 4 mg tablet TAKE 1 TABLET BY MOUTH TWICE A DAY 04/24 completed Not Available Not Available Not Available amlodipine 2.5 mg tablet TAKE 1 [...] MOUTH EVERY 4 HOURS NEEDED FOR PAIN 08/26 completed Not Available Not Available Not Available metoprolol tartrate 50 mg tablet TAKE 1 TABLET BY MOUTH TWICE A DAY 2024 active Not Available Not Available Not Avai lable methylpredn isolone 4 mg tablets in a dose pack TAKE 6 TABLETS ON DAY 1 DIRECTED ON PACKAGE AND DECREASE BY 1 TAB EACH DAY FOR A TOTAL OF 6 DAYS 04/15 completed Not Available Not Available Not Available paroxetine 40 mg tablet TAKE 1 TABLET BY MOUTH EVERY DAY active Not Available Not Available No t Available lisinopril 40 mg tablet TAKE 1 TABLET BY MOUTH EVERY DAY 2024 active Not Available Not Available Not Avai lable doxycycline hyclate 100 mg tablet TAKE 1 TABLET BY MOUTH DAILY active Not Available Not Available No t Available amoxicillin 875 mg-potassiu m clavulanate 125 [...] Not Available Not Available No t Available [facility] 04/04 completed Not Available Not Available Not [...] Not Available Not Available No t Available Xarelto 10 mg tablet TAKE 1 TABLET BY MOUTH DAILY FOR 35 DAYS 08/26 completed Not Available Not Available Not Available Flonase Allergy Relief 50 mcg/actuati on nasal spray,suspe nsion [place] 2 sprays every day by intranasa l route. active Not Available Not Available No t Available Flonase Allergy Relief two sprays each nostril qhs 02/10 completed Not Available Not Available Not Available Fluzone High-Dose Quad 2020 (PF) 240 mcg/0.7 mL IM syringe ADM [...] and Address Organization Details Last Updated DateTime 5 167.64 cm 39.2 kg/m2 738728. 95 g 96 /min 97 [degF] 99 % 99 % 138 mm[Hg] 72 mm[Hg] Nida Anton Madeline [place] [employer] [facility] 5 15:05:59 Date Recorded Body height Body mass index (BMI) Body weight Heart rate Body temperature Oxygen saturation Oxygen saturation in Arterial blood by Pulse oximetry Systolic blood pressure Diastolic blood pressure Provider Name and Address Organization Details Last Updated DateTime 4 167.64 cm 40.2 kg/m2 238674. 5 g 81 /min 97 [degF] 99 % 99 % 122 mm[Hg] 84 mm[Hg] Nida Pike [employer] 4 14:41:50 Date Recorded Body height Body mass index (BMI) Body weight Heart rate Body temperature Oxygen saturation Oxygen saturation in Arterial blood by Pulse oximetry Systolic blood pressure Diastolic blood pressure Provider Name and Address Organization Details Last Updated DateTime 4 167.64 cm 39.1 kg/m2 193778. 35 g 82 /min 97.7 [degF] 95 % 95 % 124 mm[Hg] 88 mm[Hg] JAVIER Shah [employer] 4 14:19:59 Date Recorded Body height Body mass index (BMI) Body weight Heart rate Body temperature Oxygen saturation Oxygen saturation in Arterial blood by Pulse oximetry Systolic blood pressure Diastolic blood pressure Provider Name and Address Organization Details Last Updated DateTime 4 167.64 cm 39.1 kg/m2 353141. 15 g 78 /min 97.8 [degF] 98 % 98 % 134 mm[Hg] 86 mm[Hg] JAVIER Shah [facility] 4 14:33:49 Date Recorded Systolic blood pressure Diastolic blood pressure Provider Name and Address Organization Details Last Updated DateTime 04/15/2024 140 mm[Hg] 88 mm[Hg] Roland Ojeda MD [address] [facility], [place] [address], [place], [address], [employer] [facility] [employer] 04/15/2024 15:00:41 Date Recorded Body height Body mass index (BMI) Body weight Heart rate Body temperature Oxygen saturation Oxygen saturation in Arterial blood by Pulse oximetry Provider Name and Address Organization Details Last Updated DateTime 4 167.64 cm 39.1 kg/m2 670576. 35 g 93 /min 97 [degF] 97 % 97 % JAVIER Shah [employer] [facility] [employer] 4 14:51:44 Social History Question Answer Notes LastModified by Organization Details LastModified Time Tobacco Smoking Status Former Smoker Not Available [facility] 07/04/2022 14:44:58 Do You Have An Advance Directive? No Info Given [email or web address] Information not available 12/25/2023 Are You Blind Or Do You Have Difficulty Seeing? No MIGRATION.0301 [id number] Information not available 07/04/2022 What Is Your Level Of Caffeine Consumption? Occasional MIGRATION.0301 [id number] Information not available 07/04/2022 Are You Deaf Or Do You Have Serious Difficulty Hearing? No MIGRATION.0301 [id number] Information not available 07/04/2022 What Type Of Diet Are You Following? REGULAR MIGRATION.0301 [id number] Information not available 07/04/2022 Have There Been Any Changes To Your Family Or Social Situation? No [email or web address] Information not available 12/19/2022 What Is The Fluoride Status Of Your Home? Unknown [email or web address] Information not available 12/19/2022 When Did You Quit Smoking? 16+yearssincelastci giovanni MIGRATION.0301 [id number] Information not available 07/04/2022 Where Do You Live? SingleLevelHouse [email or web address] Information not available 12/19/2022 Are You Able To Care For Yourself? Yes [email or web address] Information not available 12/19/2022 Are You Blind Or Do Yo Have Difficulty Seeing? No [email or web address] Information not available 12/19/2022 Are You Deaf Or Do You Have Serious Difficulty Hearing? Yes Hearing Aids [email or web address] Information not available 12/25/2023 Live Alone Of With Others? With Others [email or web address] Information not available 12/19/2022 Do You Have A Medical Power Of Costing Manager? No [email or web address] Information not available 12/19/2022 What Was The Date Of Your Most Recent Tobacco Screening? 12/25/2023 [email or web address] Information not available 12/25/2023 Do You Have Any Pets? No [email or web address] Information not available 12/19/2022 What Is Your Relationship Status? MIGRATION.0301 [id number] Information not available 07/04/2022 Do You Use Your Seat Belt Or Car Seat Routinely? Yes [email or web address] Information not available 12/19/2022 Do You Have Smoke And Carbon Monoxide Detectors In Your Home? Yes [email or web address] Information not available 12/19/2022 Are You Passively Exposed To Smoke? No [email or web address] Information not available 12/19/2022 Are There Any Smokers In Your House? No [email or web address] Information not available 12/19/2022 Have You Recently Traveled Abroad? No MIGRATION.0301 [id number] Information not available 07/04/2022 Do You Have Difficulty Walking Or Climbing Stairs? No MIGRATION.0301 [id number] Information not available 07/04/2022 Sex: Unknown Functional Status Question Answer Note LastModified by Organizat ion Details LastModified Time Do you or have you ever used any other forms of tobacco or nicotine? No MIGRATION.72114 74010 Information not available 07/04/2022 What is your level of alcohol consumption? Occasional MIGRATION.12859 15768 Information not available 07/04/2022 Do you have transportation difficulties? No [email or web address] Information not available 12/19/2022 Are you able to walk? YESASSIST sometimes a cane, recent knee surgery [email or web address] Information not available 12/25/2023 Do you have difficulty doing errands alone? No MIGRATION.25707 66822 Information not available 07/04/2022 Are you able to care for yourself? Yes MIGRATION.65987 65326 Information not available 07/04/2022 Do you have difficulty dressing or bathing? No MIGRATION.91111 80999 Information not available 07/04/2022 What is your exercise level? Occasional [email or web address] Information not available 12/19/2022 Mental Status Question Answer Note LastModified by Organizat ion Details LastModified Time Do you have difficulty concentrating, remembering or making decisions? No MIGRATION.[id number] 6 Information not available 07/04/2022 Family History Relationship Description Onset Age of this Age Resolved Age Notes LastModified by Organization Details LastModified Time Father Heart disease MIGRATION.885 [id number] Not available 07/04/2022 14:45:15 Father Family history of stroke MIGRATION.402 [id number] Not available 07/04/2022 14:45:15 Father History of hypertension MIGRATION.779 [id number] Not available 07/04/2022 14:45:15 Brother Family history of malignant neoplasm MIGRATION.645 [id number] Not available 07/04/2022 14:45:15 Notes:Mother at 90 [...] INSOMNIA N HIGH CHOLESTEROL / HYPERLIPIDEMIA N HYPERTHYROIDISM N EYE PROBLEMS N EDEMA N CHRONIC PAIN SYNDROME N HYPOTHYROIDISM N CONSTIPATION N CAROTID BLOCKAGE N BACK / NECK PROBLEMS N HAVE YOU BEEN HOSPITALIZED OR SEEN IN [facility] IN THE PAST YEAR ? N ATHEROSCLEROSIS N BREAST PROBLEMS N DIALYSIS N ECZEMA N OSTEOPOROSIS N ARTHRITIS N NO SIGNIFICANT PAST MEDICAL HISTORY N APPENDICITIS N DIABETES, TYPE N BAD TEETH N ENT N HEARTBURN / REFLUX N AUTISM SPECTRUM DISORDER (ASD) N HEPATITIS / LIVER DISEASE N GOUT N SLEEP DISORDER N ALZHEIMER'S DISEASE N Brain Problems N HERPES N DEMENTIA N SEIZURES/EPILEPSY N HEADACHES/MIGRAINES N VASCULAR DISEASE N PACEMAKER N Blood Disorder N DIZZINESS N KIDNEY DISEASE N HEART DISEASE/HEART PROBLEMS N MULTIPLE SCLEROSIS N CARDIAC ARRHYTHMIA N CANCER: SPECIFY N Gall Stones N ATRIAL FIBRILLATION N PULMONARY EMBOLISM N AUTOIMMUNE DISEASE N Immunizations Vaccine Type Date Status Note Provider Nam e and Address Organization Details Recorded Time SARS-COV-2 (COVID-19) vaccine, UNSPECIFIED 3 completed Not Available [facility] 05/29/2023 06:40:38 influenza, unspecified formulation 3 completed Not Available [facility] 05/29/2023 06:40:38 Respiratory syncytial virus (RSV) MAB, unspecified 3 completed Not Available [facility] 05/29/2023 06:40:38 Influenza, adjuvanted, trivalent, PF 9 completed Not Available [facility] 05/29/2023 06:40:38 Influenza, split virus, quadrivalent, preservative 2 completed Not Available [facility] 05/29/2023 06:40:38 COVID-19, mRNA, LNP-S, PF, 30 mcg/0.3 mL dose 2 completed Not Available [facility] 05/29/2023 06:40:38 COVID-19, mRNA, LNP-S, PF, 30 mcg/0.3 mL dose 2 completed Not Available [facility] 05/29/2023 06:40:38 Influenza, split virus, trivalent, preservative 1 completed Not Available [facility] 05/29/2023 06:40:38 SARS-COV-2 (COVID-19) vaccine, UNSPECIFIED 1 completed Not Available [facility] 05/29/2023 06:40:38 SARS-COV-2 (COVID-19) vaccine, UNSPECIFIED 1 completed Not Available [facility] 05/29/2023 06:40:38 Tdap 2 completed Not Available [facility] 05/29/2023 06:40:38 pneumococcal polysaccharide PPV23 1 completed Not Available [facility] 05/29/2023 06:40:38 Influenza, MDCK, quadrivalent, PF 8 completed Not Available [facility] 05/29/2023 06:40:38 Pneumococcal conjugate PCV 13 0 completed Not Available [facility] 05/29/2023 06:40:38 Past Encounters Encounter ID Performer Location Encounter Start Date Encounter Closed Date Diagnosis/Indication Diagnosis SNOMED-CT Code Diagnosis ICD10 Code Diagnosis Note [id number] Roland Ojeda MD [facility] Marta galicia [address] [facility] , [facility] [place] [address] 09/16/2020 00:00:00 09/16/2020 16:51:09 [id number] Gabino López MD [facility] Jose Cruz Ortega [address] [facility] [address] [place] [address] 09/22/2020 00:00:00 09/22/2020 13:25:58 [id number] Riccardo Stevenson MD [facility] [address] [place] [id number] 12/08/2020 00:00:00 12/08/2020 13:18:31 [id number] Riccardo Stevenson MD [facility] [address] [place] [phone] 2020 00:00:00 12/22/2020 09:01:34 [id number] Roland Ojeda MD [facility] [address] [id number] 03/27/2021 00:00:00 03/27/2021 15:15:25 [id number] Roland Ojeda MD [facility] [address] [id number] 09/27/2021 00:00:00 09/27/2021 15:04:31 [id number] _ATHN_MIGR ATION_1 _ATHENA_M IGRATION_ DEFAULT_1 _1 , 10/18/2021 00:00:00 10/18/2021 13:10:28 [id number] Roland Ojeda MD [facility] [address] [address] 04/04/2022 00:00:00 04/04/2022 14:43:40 [id number] Roland Ojeda MD [facility] [address] [address] 09/06/2022 11:11:03 09/06/2022 11:55:00 Coronary arteriosclerosis 63615470 I25.10 Benign ess ential hypertension 7037624 I10 Hyperlipidemia 69972361 E78.5 Obese class III 04839162 5 E66.01 [id number] Roland Ojeda MD [facility] [place] [facility] [address] [address] 12/19/2022 14:24:13 12/19/2022 14:53:38 Adult health examination 451181349 Z00.00 Screening for disorder 379886237 Z13.9 Coronary arteriosclerosis 16425929 I25.10 Benign ess ential hypertension 8364595 I10 Hyperlipidemia 96123548 E78.5 Morbid obesity 945543663 E66.01 Disorder of prostate 302 74562 N42.9 [id number] Roland Ojeda MD [facility] [place] [facility] [address] [place] [address] 0 04/24/2023 14:28:06 04/24/2023 14:44:13 Coronary arteriosclerosis 85671304 I25.10 Benign ess ential hypertension 1965142 I10 Hyperlipidemia 03607538 E78.5 Disorder of prostate 302 58460 N42.9 [id number] Roland Ojeda MD [facility] [place] [address] [address] 08/28/2023 14:24:49 08/28/2023 14:53:47 Coronary arteriosclerosis 91772998 I25.10 Benign ess ential hypertension 3764809 I10 Hyperlipidemia 60709029 E78.5 Obese class III 64929803 5 E66.01 [id number] Roland Ojeda MD [facility] [place] [facility] [address] [address] 10/07/2023 14:14:44 10/07/2023 14:35:15 Coronary arteriosclerosis 08078303 I25.10 Benign ess ential hypertension 8176762 I10 Hyperlipidemia 82636076 E78.5 Obese class II 128475777 1 64040 E66.9 [id number] Roland Ojeda MD [facility] [place] [facility] [address] [address] 12/25/2023 14:26:52 12/25/2023 14:56:26 Adult health examination 122942345 Z00.00 Screening for disorder 766436624 Z13.9 Coronary arteriosclerosis 33377269 I25.10 Benign ess ential hypertension 0051010 I10 Hyperlipidemia 09582052 E78.5 Obese class II 161897448 1 39816 E66.9 Polyp of nasal cavity 73 7935904 J33.0 [id number] Roland Ojeda MD [facility] [place] [facility] [address] [address] 04/15/2024 14:46:09 04/15/2024 15:14:48 Coronary arteriosclerosis 19670213 I25.10 Benign ess ential hypertension 0385493 I10 Hyperlipidemia 87409965 E78.5 Obese class II 172190837 1 32467 E66.9 Disorder of prostate 302 91387 N42.9 [id number] Roland Ojeda MD [facility] Internal Med [facility] [address] [address] 08/26/2024 14:56:05 08/26/2024 15:35:58 Coronary arteriosclerosis 16166102 I25.10 Benign ess ential hypertension 4263447 I10 Hyperlipidemia 48744920 E78.5 Obese class II 287298761 1 30654 E66.9 Health Concerns Section Related Observation LastModified by Organization Detai ls LastModified Time None Recorded Concern Status LastModified by Organization Details LastModified Time None Recorded Advance Directives Directive N: Info given Payers Insurance Date Sequence Insurance Name Policy Number Policy Kern Covered Member ID Kern Member ID Guarantor Name 08/28/2023 1 UMR [id number] Eddi Gallego [id number] Eddi Gallego 08/26/2024 1 [place] Eddi Gallego [id number] Eddi Gallego 08/26/2024 2 [employer] (MEDICARE SUPPLEMENT) Eddi Gallego [id number] Eddi Gallego Notes Date Note Type Note Provider Name and Address Organization Details Recorded Time 08/28/2023 text/html Patient Name: Rhoda corinne LashondaDate Of Service: Saturday ( 08.28.2023 ): 1955 [...] Systemic Symptoms:none Medication Reconciliation: from medication list. Uyhydrakeoe56/24/2023: Carotid Doppler showed less than 50% stenosis [...] Hx of obesity. Currently Class 3 Obesity PA > 40. Has tried numerous dietary support [...] offered to be evaluated and instructed by hydraulic pile hammer operator on weight loss diet. Active Medication ListMetoprolol [...] Adverse Drug Reactions ReviewedArbs Rash Vaccination and Dbdbjlvcrooo4763-80 Vzo9608-74 Qnykpwzwp0672-39 Covid Booster Ylvgge4921-14 Cldm9612-88 Jfzi7523-64 Ezuaspvjx1955-22 Covid Tfajax2103-65 Prevnar 13 Gc Surgical Kztvskc2016-62 LAD Drug Eluting Stent Preventative Kyjjsxe8005/03/2023 ALBUMIN 4.2 G/DL12/20/2022 PSA 1.16 NG/ML N006/05/2022 RTSZYMVWAXROD69/06/2022 COLONOSCOPY ( 10 YEARS ) HAIC 5.8 % OF TOTAL HGB H001/24/2006 [...] cancer. TEST RESULT RANGE UNITSLIPID PANEL Date: 05/03/2023HOLESTEROL 131 140-199 MG/DLTRIGLYCERIDES 86 [...] 277 150-400 X10'3/UL Roland Ojeda MD [address] [facility] [address], [place], [address], [facility] [employer] 08/28/2023 14:49:59 10/07/2023 text/html Patient Name: Rhoda [...] Systemic Symptoms:none Medication Reconciliation: from medication list. Mqcanyjilst06/24/2023: Carotid Doppler showed less than 50% stenosis [...] offered to be evaluated and instructed by hydraulic pile hammer operator on weight loss diet. Active Medication ListMetoprolol [...] Adverse Drug Reactions ReviewedArbs Rash Vaccination and Nrqtgpqeimby3914-75 Uat7926-47 Eszoanoki5152-03 Covid Booster Cqqlwh3810-30 Ypct9890-91 Yasj2666-68 Tknegfmjs7194-09 Covid Nusdpf7411-52 Prevnar 13 Gc Surgical Nwtsdhd7825-35 LAD Drug Eluting Stent Preventative Zofcseo1505/03/2023 ALBUMIN 4.2 G/DL12/20/2022 PSA 1.16 NG/ML N006/05/2022 KQEUOBRJKIKDV96/06/2022 COLONOSCOPY ( 10 YEARS ) HAIC 5.8 % OF TOTAL HGB H001/24/2006 [...] 4 prostate cancer. Roland Ojeda MD [address] [facility], [facility] [address], [place], [address], [place] [facility] [employer] 10/07/2023 14:32:58 12/25/2023 text/html Patient Name: Rhoda GallegoDate Of Service: Saturday ( 12.25.2023 ): 1955 [...] Systemic Symptoms:none Medication Reconciliation: from medication list. Cjqkxoqvkpq05/24/2023: Carotid Doppler showed less than 50% stenosis [...] offered to be evaluated and instructed by hydraulic pile hammer operator on weight loss diet. Wishes to be evaluated by Dietary: No and was offered to be evaluated and instructed by hydraulic pile hammer operator on weight loss diet. Active Medication ListMetoprolol [...] Adverse Drug Reactions ReviewedArbs Rash Vaccination and Gnstucrcmbwl3211-22 Pye9412-45 Ijxiwqyyy9215-89 Covid Booster Lxhgws2641-61 Dfno5099-80 Mfex1405-01 Mzpgtfxht6897-19 Covid Agerqm8476-98 Prevnar 13 Gc Surgical Cxraici4438-00 Rt. FPB6786-53 LAD Drug Eluting Stent Preventative Testing( ) [...] Adverse Drug Reactions ReviewedArbs Rash Vaccination and Cchpfvcghcua7399-32 Fni1303-65 Efirgrkkq9364-10 Covid Booster Rxblpw9248-96 Cglc6395-35 Comc3115-81 Qoyuklyog3619-74 Covid Ugtjjv8383-35 Prevnar 13 Gc Surgical Uizyvti4574-58 Rt. JCE6444-57 LAD Drug Eluting Stent Preventative Testing( ) [...] 0.20-1.30 MG/DLCALCIUM 10.0 8.4-10.2 MG/DLLIPID PANEL Date: 3CHOLESTEROL 131 140-199 MG/DLTRIGLYCERIDES 86 0-150 MG/DLHDL CHOLESTEROL 45 40- MG/DLLDL CHOLESTEROL, CALCULATED 69 0-130 MG/DL Roland Ojeda MD [address] [facility], [facility] [address], [place], [address], [place] [facility] [place] [employer] [facility] 12/25/2023 14:54:01 04/15/2024 text/html Patient Name: Rhoda [...] Systemic Symptoms:none Medication Reconciliation: from medication list. Jqxklqcfdnl69/24/2023: Carotid Doppler showed less than 50% stenosis [...] offered to be evaluated and instructed by hydraulic pile hammer operator on weight loss diet. Active Medication ListMetoprolol [...] Drug Reactions ReviewedArbs Rash Vaccination and Immunization(X) 2022- INFLUENZA( ) 2019- PREVNAR 13 GC( ) 2020- COVID PFIZER( ) 2020- PNEUMOVAX( ) 2023-02 RSV(X) 2023-02 COVID BOOSTER PFIZER( ) 2021- DTAP( ) 2021- TDAP Surgical Vlmoail2274-48 Nasal Wlyvve6778-59 Rt. AQG2214-74 LAD Drug Eluting Stent Preventative Testing( ) [...] stage 4 prostate cancer. Roland Ojeda MD [address] [place] [address], [facility] [address], [place], [address], [facility] [employer] 04/15/2024 15:05:56 08/26/2024 text/html Patient Name: Rhoda freeman PiperDate Of Service: Saturday ( 08.26.2024 ): 1955 Age: 68 Vital Signs:Blood Pressure: Sitting Rt. Arm 138/72Pulse: Sitting 96 /min and RegularRespiratory Rate: 16Height 66 in or 1.7 mWeight 243 lb or 110.2 kgBMI 39.2Temperature: 97 F or 36.1 CPulse Oximetry: 99 % at rest on no oxygen Chief Complaint: Addressed in HPI Problems or conditions discussed in the HPI were the only ones reviewed during the encounter.Only social and family history addressed in the HPI were reviewed during this encounter. Attendant(s): NoneConstitutional and Systemic Symptoms:none Medication Reconciliation: from medication list. Tkgvsuqraia65/24/2023: Carotid Doppler showed less than 50% stenosis [...] none The frequency of anginal attacks is several times per week. Additional Symptoms: none Therapy reviewed regarding cardiovascular management includes Lisinopril and Metoprolol #2. Essential Hypertension: Stage: Stage I Interval [...] disease. Discussed other modalities of weight loss currently using GLP-1 Inhibitors with diet and doing well . Potential candidate for bariatric surgery: Yes. Wishes to be evaluated by Dietary: No and was offered to be evaluated and instructed by hydraulic pile hammer operator on weight loss diet. Active Medication ListMetoprolol 50 MG (TABLET - ORAL) One Bid For HtnPaxil 40 MG (CAPSULE - ORAL) Once DailyLisinopril 40 MG TABLET One Daily For HtnTamsulosin Hydrochloride 0.4 MG (CAPSULE - ORAL) One DailyAtorvastatin Calcium 20 MG TABLET One DailyPlavix 75 MG TABLET, FILM COATED Once DailyAspirin 81 MG TABLET Once DailyFlonase 2 Squirt Each Nostril Twice A DayZyrtec 10 MG TABLET, FILM COATED Once DailyMagnesium Oxide 100 MG Once DailyCoenzyme Q10 400 MG Once DailySemaglutide 2 MG WeeklyZetia 10 MG TABLET Once Daily Adverse Drug Reactions ReviewedArbs Rash Vaccination and Immunization(X) 2022- INFLUENZA( ) 2019- PREVNAR 13 GC( ) 2020- COVID PFIZER( ) 2020- PNEUMOVAX( ) 2023-02 RSV(X) 2023-02 COVID BOOSTER PFIZER( ) 2021- DTAP( ) 2021- TDAP Surgical Icakhwn7351-98 Rt. JUL2667-86 Nasal Vkjgla7040-83 Lt. HGO1755-53 LAD Drug Eluting Stent Preventative Testing( ) [...] stage 4 prostate cancer. Roland Ojeda MD [address] [place] [address], [facility] [address], [place], [address], [place] [facility] [employer] [facility] [employer] 08/26/2024 15:16:31
--- OUTSIDE RECORDS SUMMARY | 2024-10-22 08:01 | XMS_ITS | Encounter Summary ---
Author Organization [employer] Address 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 Gender Identity Not on file Sexual Orientation [...] PM CDT Ian Kenyon MD CHEMISTRY ORDERABLES Final R esult Performing Organization Address [facility] de Phone Number INTERFACE SYSTEM Refer to [...] 7 PM CDT Ian Kenyon MD HEMATOLOGY ORDERABLES Final Result Performing Organization Address [facility] Phone Number INTERFACE SYSTEM Refer to [...] 7 PM CDT Ian Kenyon MD HEMATOLOGY ORDERABLES Final Result Performing Organization Address City/[facility] Co de Phone Number INTERFACE SYSTEM Refer to clinic/hospital department * LIPASE (01/23/2006 12:17 PM CDT) LIPASE 28 13 - 60 U/L INTERFAC E SYSTEM 01/23/2006 12:1 7 PM CDT Ian Kenyon MD CHEMISTRY ORDERABLES Final R esult Performing Organization Address City/[facility]/ZIP Co de Phone Number INTERFACE SYSTEM Refer to clinic/hospital department * AMYLASE (01/23/2006 12:17 PM CDT) AMYLASE 31 28 - 100 U/L INTERFACE SYSTEM 01/23/2006 12:1 7 PM CDT Ian Kenyon MD CHEMISTRY ORDERABLES Final R esult Performing Organization Address City/[facility] Co de Phone Number INTERFACE SYSTEM Refer to clinic/hospital department * BRAIN NATRIURETIC PEPTIDE, BNP OR PROBNP (01/23/2006 12:17 PM CDT) PRO-BNP 25 pg/mL INTERFACE SYSTEM Comment: proBNP Interpretation: Reference values for screening purposes based on pool nurse's recommendation: Patients less than 75 years: <125 pg/mL Patients 75 years and older: <450 pg/mL Reference values for determination of acute congestive heart failure in dyspneic patients based on PRIDE study (AM J Cardiol 2005;95:948): Patients less than 50 years: <450 pg/mL (Negative predictive value= 99%) Patients 50 years and older: <900 pg/mL (Negative predictive value= 92%) Rule out cutpoint, all ages: <300 pg/mL (Negative predictive value= 99% ) 01/23/2006 12:1 7 PM CDT Ian Kenyon MD CHEMISTRY ORDERABLES Final R esult INTERFACE SYSTEM Refer to clinic/hospital department * [...] PM CDT Ian Kenyon MD CHEMISTRY ORDERABLES Final R esult INTERFACE SYSTEM Refer to clinic/hospital department * ED HOLD (01/23/2006 11:58 AM CDT) SPECIMEN HOLD, BLOOD 7 days INTERFACE SYSTEM 01/23/2006 11:5 8 AM CDT us Historical Provider CHEMISTRY ORDERABLES Final R esult INTERFACE SYSTEM Refer to clinic/hospital department documented in this encounter Visit Diagnoses Diagnosis Other dyspnea and respiratory abnormality- Primary documented in this encounter
[2024-10-22 09:24] LABS: Basophils Absolute Auto 0.1 K/mm3 (0.0-0.1); Basophils Percent Auto 0.9 % (0.2-1.2); Eosinophils Absolute Auto 0.4 K/mm3 (0-0.3); Eosinophils Percent Auto 5.1 % (0-4.4); Immature Granulocyte Absolute 0.02 K/mm3 (0.00-0.031); Immature Granulocyte Percent A 0.3 % (0-0.5); Lymphocytes Absolute Auto 1.52 K/mm3 (0.9-3.2); Mean Corpuscular HGB Conc 30.8 g/dl (32-36); Mean Corpuscular Hemoglobin 26.9 pg (26-34); Mean Corpuscular Volume 87.4 fl (80-100); Mean Platelet Volume 9.6 fl (7.4-10.4); Monocytes Absolute Auto 0.6 K/mm3 (0.1-0.6); Monocytes Percent Auto 8.3 % (2.6-8.5); Neutrophils Percent Auto 65.4 % (45.5-73.1); Platelet Count Result 288 k/mm3 (150-375); Red Blood Count 4.46 M/mm3 (4.6-6.20); Red Cell Distribution Width 16.7 % (11.5-14.5); White Blood Count 7.6 K/mm3 (4.5-10.0)
[2024-10-22 09:33] LABS: Alanine Aminotransferase 13 U/L (6-50); Albumin Level 4.2 g/dL (3.5-5.1); Alkaline Phosphatase 104 U/L (38-126); Anion Gap 8 mmol/L (4-12); Aspartate Amino Transferase 23 U/L (17-59); Bilirubin,Total 0.5 mg/dL (0.2-1.3); Blood Urea Nitrogen 17 mg/dL (9-20); Calcium 9.6 mg/dL (8.4-10.2); Carbon Dioxide 26 mmol/L (22-30); Chloride 107 mmol/L (98-107); Cholesterol 106 mg/dL (0-200); Estimated Glomerular Filt Rate > 60; Glucose 102 mg/dL (65-110); HDL Direct 50 mg/dL; Potassium 4.2 mmol/L (3.4-5.0); Sodium 141 mmol/L (137-145); Total Protein 7.2 g/dL (6.3-8.2); Triglycerides 70 mg/dL (<150)
[2024-10-22 09:44] LABS: LDL Cholesterol Direct 31 mg/dL
[2024-10-22 09:51] LABS: Free T4 Free Thyroxine 1.05 ng/dL (0.78-2.19)
[2024-10-22 10:04] LABS: Thyroid Stimulating Hormone 0.498 uIU/mL (0.465-4.680)
== END 2024-10-22 07:56 | disposition home or self-care (01) ==
LOC: ANHLAB 07:58
PROVIDERS: PCP Internal Medicine; Visit Provider Internal Medicine
DX: E66.9 Obesity, unspecified (principal); I10 Essential (primary) hypertension
CPT/HCPCS: 36415; 80053; 80061; 84439; 84443; 85025; 99212; G0463